=== PATIENT | female | born 1950 | race African-American/Black ===

== ENCOUNTER 2016-11-12 15:09 | Inpatient (IN) | payer OTHER, MEDICAID ==
[~2016-11-12] VITALS: Ht 170.2 cm; Wt 82.6 kg
[2016-11-12 15:09] VITALS: BP_SYST 125
[~2016-11-12 15:09] MED LIST: ASPI81TA2 PO; CARV3.1246 PO; CEL250 PO; FAMO20TA8 PO; GLIP5TAB13 PO; INSU100I20 SQ; INSU200I SQ; METO5TAB8 PO; MULT PO; NIFE60TA7 PO; SULF1TAB48 PO; TACR1CAP PO; [UNRECOGNIZED DRUG - CODE] PO
--- NOTE | 2016-11-12 15:09 | NUR ---
BROUGHT IN BY DANYEL Heredia AND FIONA GOODMAN, PLACED IN BED #1 AND TRIAGED. REPORT GIVEN TO TIA
--- NOTE | 2016-11-12 15:10 | NUR ---
Dr. Amor at bedside examining the pt.
--- NOTE | 2016-11-12 15:10 | NUR ---
Pt. to ER AAOx4 BIB EMS c/o SOB and Chest pain started yesterday states she took NTG / Asprin, denies SOB or Chest pain at the time of arrival, skin pale and cool, denies any pain at this time, clear speech, speaks in full sentences, lungs clear to auscultation bilaterally, denies N/V/D, VSS at this time
--- NOTE | 2016-11-12 15:15 | NUR ---
lab at bedside for blood draw
--- NOTE | 2016-11-12 15:19 | NUR ---
X Ray at bedside
[2016-11-12 15:39] VITALS: BP_SYST 135
[2016-11-12 15:41] LABS: BASOPHILS % (AUTO) 0.4 % (0.0-2.0); EOSINOPHILS # (AUTO) 0.1 K/uL (0.0-0.4); EOSINOPHILS % (AUTO) 1.3 % (0.0-4.0); HEMATOCRIT 35.1 % (36-48); HEMOGLOBIN 11.5 g/dL (12.0-16.0); LYMPHOCYTES # (AUTO) 1.4 K/uL (1.0-5.5); LYMPHOCYTES % (AUTO) 18.4 % (20.5-51.5); MEAN CORPUSCULAR HEMOGLOBIN 30 pg (27-31); MEAN CORPUSCULAR HGB CONC 33 % (32-36); MEAN CORPUSCULAR VOLUME 91 fL (79.0-98.0); MONOCYTES # (AUTO) 0.1 K/uL (0.0-1.0); MONOCYTES % (AUTO) 1.7 % (1.7-9.3); NEUTROPHILS # (AUTO) 5.8 K/uL (1.8-7.7); NEUTROPHILS % (AUTO) 78.2 % (40.0-70.0); PLATELET COUNT (AUTO) 332 K/uL (130-430); RED BLOOD CELL COUNT(AUTO) 3.84 MIL/uL (4.2-6.2); RED CELL DISTRIBUTION WIDTH 15.7 % (9.0-15.0); WHITE BLOOD COUNT (AUTO) 7.4 K/uL (4.8-10.8)
--- NOTE | 2016-11-12 15:44 | NUR ---
pt. resting, on crystallographer vitals are stable, bedpan provided to collect Urine for UA
[2016-11-12 15:55] LABS: CALCIUM 9.7 mg/dL (8.4-11.0); CREATININE 1.46 mg/dL (0.55-1.30)
[2016-11-12 16:00] LABS: ALBUMIN 3.6 g/dL (3.4-4.8); TOTAL BILIRUBIN 0.4 mg/dL (0.0-1.0); TOTAL PROTEIN, SERUM 6.9 g/dL (6.4-8.3)
--- NOTE | 2016-11-12 16:05 | NUR ---
Patient resting quietly. No acute distress noted. Vital signs within normal range.
[2016-11-12 16:06] LABS: POTASSIUM 2.8 mmol/L (3.5-5.1)
[2016-11-12 16:08] LABS: PROTHROMBIN TIME 10.9 SECS (9.5-12.5)
[2016-11-12] MEDS ORDERED: KCL 20 mEq in 100 mL (PREMIX) 100 ML IV ONE (16:15)
--- NOTE | 2016-11-12 16:35 | NUR ---
Pt. requested to eat, was given Diabetic Food tray at bedside
--- NOTE | 2016-11-12 16:40 | NUR ---
# 14 FR In and Out catheter with use of sterile technique. Immediate return of 200 ml yellow urine noted. Urine sample collected and sent to lab. Pt tolerated procedure well
[2016-11-12] MEDS ORDERED: NACL 0.9% 1,000 ML IV ONE (17:00)
[2016-11-12 17:12] LABS: BILIRUBIN,URINE NEGATIVE (NEGATIVE); BLOOD, URINE NEGATIVE (NEGATIVE); CLARITY/URINE CLEAR (CLEAR); COLOR,URINE YELLOW (YELLOW); GLUCOSE,URINE NEGATIVE (NEGATIVE); KETONES,URINE NEGATIVE (NEGATIVE); LEUKOCYTE ESTERASE ,URINE NEGATIVE (NEGATIVE); NITRITE, URINE NEGATIVE (NEGATIVE); PROTEIN URINE NEGATIVE (NEGATIVE); UROBILINOGEN,URINE 0.2 (0.2-1.0)
--- NOTE | 2016-11-12 17:19 | NUR ---
pt. states her list is at home, unable to recall all her meds, medication list completed as stated by pt.
--- NOTE | 2016-11-12 17:30 | NUR ---
Patient will be admitted to care of DR. Zavala. Admitted to TELE unit. Will go to room 135. Belongings list completed. Summary report printed. Report will be given at bedside.
--- NOTE | 2016-11-12 17:39 | NUR ---
Admission Note Received patient from ER with diagnosis of CP. Initial Plan of Care discussed-patient verbalized understanding. Oriented to room, call light, pain management and safety. vitals stable
--- NOTE | 2016-11-12 18:30 | NUR ---
Initial Notes Received patient in the room via gurney aaox4 with no complaints of chest pain or discomfort. No sob, difficulty breathing or distress noted. IV to right hand #20g saline locked patent and flushing. rent collector in place. Oriented to unit. Educated about fall and safety precautions. Encouraged to call for assistance. Call light within reach. Will endorse to incoming nurse.
[2016-11-12 19:30] VITALS: BP_SYST 145
--- NOTE | 2016-11-12 19:30 | NUR ---
Initial Notes Patient is A/Ox4, pleasant and cooperative. Pt denies any chest pain or sob at this time. VSS. IV intact to right hand #20g. Pt noted to have walker at bedside which she states she uses to walk to restroom. Pt educated regarding call light and correct back demonstration noted. Plan of care discussed with pt, pt verbalized understanding. Will reinforce teaching as needed. Pt inquired about her medications tonight, will follow up and page MD. Fistula noted to ROSALIO, with bruit and thrill present. Pt states she no longer receives dialysis. Safety measures in place, side rails up x3, with bed in lowest, locked position, bed alarm on at all times. All needs met at this time. Call light in hand. Will continue to monitor.
[2016-11-12] MEDS ORDERED: CLOP75TA2 PO (20:40)
--- NOTE | 2016-11-12 21:31 | NUR ---
Spoke with Informed regarding pt's medications tonight and blood sugar of 209. stated he would be in to see pt.
--- NOTE | 2016-11-12 22:13 | NUR ---
MD Rounds with pt. Informed MD that pt's blood sugar 209, and that her potassium earlier today was 2.8.
[2016-11-12] MEDS ORDERED: MILK OF MAGNESIA 30 ML UDC PO PRN (22:15)
[2016-11-12] MEDS: INSULIN REGULAR, HUMAN 100 UNITS/ML, 10 ML VIAL (novoLIN R) SUBCUT PRN (22:28)
[2016-11-12] MEDS ORDERED: NITROGLYCERIN 0.4 MG TAB.SUBL SL PRN (22:30)
[2016-11-13] VITALS (7 sets, daily range): BP systolic 121–150
--- NOTE | 2016-11-13 01:10 | NUR ---
Rounds Pt is sleeping safely in bed at this time with no acute distress or sob noted. VSS. IV intact. Call light in reach. Will continue to monitor.
--- NOTE | 2016-11-13 03:48 | NUR ---
Rounds Pt is sleeping comfortably in bed at this time. No acute distress or sob noted. Call light in reach. Will continue to monitor.
--- NOTE | 2016-11-13 05:42 | NUR ---
Blood sugar - Blood sugar checked, 59. [place] juice given at this time. Pt is A/Ox4, asymptomatic of low blood sugar. Pt denies any chills, dizziness, and no diaphoresis noted. Informed pt that I will be back in 15 minutes to re check her blood sugar.
--- NOTE | 2016-11-13 06:03 | NUR ---
Blood sugar re-checked Blood sugar re checked post 15gm of protein (OJ), 94 blood sugar. Pt states she feels better and more energized. Pt educated regarding good sources of protein and encouraged to eat her breakfast. Also educated pt on the normal range for blood sugar. All questions answered. All needs met at this time. Call light in hand. Will continue to monitor.
--- NOTE | 2016-11-13 06:28 | NUR ---
Closing Notes Pt is resting in bed quietly. No acute distress or sob noted. Pt denies any pain or n/v. VSS. IV intact. Pt in stable condition. All needs met at this time. Call light in hand. Will endorse care to am Nurse.
[2016-11-13 06:31] LABS: BASOPHILS % (AUTO) 0.1 % (0.0-2.0); EOSINOPHILS % (AUTO) 0.6 % (0.0-4.0); HEMATOCRIT 35.1 % (36-48); HEMOGLOBIN 11.5 g/dL (12.0-16.0); LYMPHOCYTES # (AUTO) 1.3 K/uL (1.0-5.5); LYMPHOCYTES % (AUTO) 17.4 % (20.5-51.5); MEAN CORPUSCULAR HEMOGLOBIN 30 pg (27-31); MEAN CORPUSCULAR HGB CONC 33 % (32-36); MEAN CORPUSCULAR VOLUME 91 fL (79.0-98.0); MONOCYTES # (AUTO) 0.2 K/uL (0.0-1.0); MONOCYTES % (AUTO) 3.3 % (1.7-9.3); NEUTROPHILS % (AUTO) 78.6 % (40.0-70.0); PLATELET COUNT (AUTO) 342 K/uL (130-430); RED BLOOD CELL COUNT(AUTO) 3.85 MIL/uL (4.2-6.2); RED CELL DISTRIBUTION WIDTH 15.4 % (9.0-15.0); WHITE BLOOD COUNT (AUTO) 7.5 K/uL (4.8-10.8)
[2016-11-13 06:43] LABS: ANION GAP 8 (5-15); CALCIUM 9.3 mg/dL (8.4-11.0); CHLORIDE 104 mmol/L (98-107); GLUCOSE 62 mg/dL (70-99); POTASSIUM 3.3 mmol/L (3.5-5.1); SODIUM SERUM 142 mmol/L (136-145); UREA NITROGEN, BLOOD 22 mg/dL (8-21)
[2016-11-13 07:06] LABS: GFR AFRICAN AMERICAN 53 mL/min (>90)
--- NOTE | 2016-11-13 08:00 | NUR ---
AM Initial notes Pt aaox4 with no complaints of chest pain or discomfort. No sob, difficulty breathing or distress noted. IV to right hand #20g saline locked patent and flushing. equipment monitor phototypesetting in place. re- educated about fall and safety precautions. Encouraged to call for assistance. Call light within reach. Will monitor.
[2016-11-13] MEDS ORDERED: CARVEDILOL 3.125 MG TABLET (COREG) PO SCH (09:00)
[2016-11-13] MEDS: NIFEDIPINE 60 MG TABLET.SA (PROCARDIA XL 60 MG) PO SCH (09:02)
[2016-11-13] MEDS: MULTIVITAMINS TAB 1 TABLET PO SCH (09:02)
[2016-11-13] MEDS: ASPIRIN 81 MG TAB.CHEW PO SCH (09:02)
[2016-11-13] MEDS: CLOPIDOGREL BISULFATE 75 MG TABLET PO SCH (09:02)
[2016-11-13] MEDS: FAMOTIDINE 20 MG TABLET PO SCH ×2 (09:03→21:04)
[2016-11-13] MEDS: METOLAZONE 5 MG TABLET PO SCH ×2 (09:03→21:05)
[2016-11-13] MEDS: ENOXAPARIN SODIUM 30 MG/0.3 ML SYRINGE SUBCUT SCH (09:04)
[2016-11-13] MEDS: SULFAMETHOXAZOLE/TRIMETHOPR DS 1 TABLET PO SCH (09:04)
[2016-11-13] MEDS: MYCOPHENOLATE MOFETIL 250 MG CAPSULE PO SCH ×2 (09:04→21:02)
[2016-11-13] MEDS: TACROLIMUS ANHYDROUS 1 MG CAPSULE (PROGRAF) PO SCH ×2 (09:05→21:04)
--- NOTE | 2016-11-13 10:00 | NUR ---
Rounds Pt awake resting in bed watching tv. No complaints of chest pain or any discomfort at this time. No distress noted. Kept comfortable. Will continue to monitor.
[2016-11-13] MEDS: INSULIN REGULAR, HUMAN 100 UNITS/ML, 10 ML VIAL (novoLIN R) SUBCUT PRN ×3 (11:52→21:14)
--- NOTE | 2016-11-13 12:00 | NUR ---
Rounds Pt awake sitting up on bed. No complaints of chest pain or discomfort. No distress noted. Blood sugar monitor 238. Insulin sliding scale administered.
--- NOTE | 2016-11-13 12:50 | NUR ---
Case mgt: CELESTE notice explained to pt--Pt aware she is admitted as observation status. Pt signed CELESTE and was given copy of CELESTE. Original CELESTE placed in chart. CARLA EUBANKS
--- NOTE | 2016-11-13 13:50 | NUR ---
Social Service Note: Pt referred to psychologist social by director case management due to pt's homelessness. EXTRACTIONS TECHNOLOGIST met with pt at bedside. Pt was pleasant and very open to resources provided by EXTRACTIONS TECHNOLOGIST. Pt states that she and her have been staying in motels for sometime. Pt states that they spend about $400 a week for motel/hotel stays. Pt states that they would like to get into more permanent housing. EXTRACTIONS TECHNOLOGIST spoke with pt about assisted living/independent living options. EXTRACTIONS TECHNOLOGIST provided pt with information on local assisted living facilities. EXTRACTIONS TECHNOLOGIST also provided pt with brochure for [facility]. EXTRACTIONS TECHNOLOGIST encouraged pt to make phone calls to the facilities to see what their monthly rate is for her and her . EXTRACTIONS TECHNOLOGIST encouraged pt to reach out to EXTRACTIONS TECHNOLOGIST should any questions arise. EXTRACTIONS TECHNOLOGIST will remain available for support and will follow up as needed. EXTRACTIONS TECHNOLOGIST has placed homeless [place] in pt's chart.
--- NOTE | 2016-11-13 14:00 | NUR ---
Rounds Pt awake resting in bed with no significant changes noted. Encouraged to call for assistance. Will monitor.
--- NOTE | 2016-11-13 16:00 | NUR ---
Rounds Pt awake watching tv. No significant changes noted. Kept comfortable. Will monitor.
[2016-11-13] MEDS ORDERED: POTASSIUM CHLORIDE 20 MEQ TAB.PRT.SR PO ONE (16:30)
--- NOTE | 2016-11-13 18:30 | NUR ---
Closing notes Pt awake resting in bed. No complaints of chest pain or discomfort. No distress noted. Pt stable condition. Will endorse care to incoming nurse.
--- NOTE | 2016-11-13 19:15 | NUR ---
change of shift.pt.presents stable status.no c/o pain,nausea.pt.presents room air:96%. pt.presents hx;renal failure:renal transplant;rt.kidney:2015,av-shunt lt.arm:no hemo dialysis: 2016.iv fluids access iv lock rt.hand.call light w/in pt's reach.
--- NOTE | 2016-11-13 20:00 | NUR ---
pt.assessed.v/s assessed:values w/in normal limits.pt.sign:hob:nsg alert:av shunt:lt.arm. i have reiterated to the pt.:snacks available throughout the night.pt.requested pudding. i have provided the pudding:sugar free.pt.presented w/room-telephone.i have demonstrated to the pt.the instructions to operate the telephone;ie;outside calls.call nsg per extentions provided upon the white boards:pt.returned the demonstration,.call light w/in the pt's reach.
--- NOTE | 2016-11-13 20:15 | NUR ---
blood glucose assessed:162mg/dl.i have apprised the pt.of the value.
--- NOTE | 2016-11-13 21:00 | NUR ---
2100 p medications administered.note renal transplant medications:x 2 tablets.no further request. call alyson w/in pt's reach.
[2016-11-13] MEDS: METOPROLOL TARTRATE 25 MG TABLET PO SCH (21:03)
--- NOTE | 2016-11-13 21:50 | NUR ---
pt.assessed.i inquired if the pt.presents request pt.stated i she could recieve medication for sleep. i am to f/u:no medication is ordered.
--- NOTE | 2016-11-13 21:55 | NUR ---
paged paged for Dr Moffett , dialed . s/w Sherry.
--- NOTE | 2016-11-13 22:00 | NUR ---
telephoned call placed to the exchange of i have apprised the pt.the call is placed to am awaiting for the return call.no further request @this hour.
--- NOTE | 2016-11-13 22:05 | NUR ---
return the call.i apprised of the pt's request for medication:sleep. has ordered;retoril;15mg po qhs/prn.i have apprised the pt.of the medication order and am awaitng the medication to be added to the pt's emar list.
[2016-11-13] MEDS: TEMAZEPAM 15 MG CAPSULE PO PRN (22:26)
--- NOTE | 2016-11-13 22:30 | NUR ---
i have administered the restoril;15mg po.i inquired if the pt.presents further request pt.stated no she is fine.call light w/in the pt's reach.
--- NOTE | 2016-11-13 23:30 | NUR ---
pt.assessed.pt.presents quiescent affect;calm,asleep.call light w/in the pt's reach.
--- NOTE | 2016-11-14 | NUR ---
pt.assessed.v/s assessed;values w/in normal limits.no further request @this hour. call light w/in the pt's reach.
--- NOTE | 2016-11-14 00:30 | NUR ---
i have conveyed the pt's report:info/data to jessica.i have re-iterated to leodan the pt's hx; renal failure s/p renal transplant;rt.kidney po medciations anti reject:medciations x2 meds location: po med margarito pt.utlizing the walker but re-terated to the pt.to call nsg for assistance.
--- NOTE | 2016-11-14 00:34 | NUR ---
NOTES RECEIVED REPORT FROM WADE EUBANKS FOR CONTINUITY OF PATIENT CARE. PATIENT ASLEEP AT THIS TIME, NO SIGNS OF ANY SOB NOR PAIN AND DISCOMFORT NOTED AT THIS TIME. WILL CONTINUE TO MONITOR.
--- NOTE | 2016-11-14 02:20 | NUR ---
ROUNDS PATIENT ASLEEP, NO SOB NOR PAIN AND DISCOMFORT NOTED, WILL CONTINUE TO MONITOR.
[2016-11-14 03:52] VITALS: BP_SYST 136
--- NOTE | 2016-11-14 04:04 | NUR ---
PATIENT RESTING: Patient resting quietly. No acute distress noted. Vital signs within normal range.
[2016-11-14] MEDS: INSULIN REGULAR, HUMAN 100 UNITS/ML, 10 ML VIAL (novoLIN R) SUBCUT PRN ×4 (06:27→22:01)
--- NOTE | 2016-11-14 06:50 | NUR ---
CLOSING NOTES PATIENT AWAKE, VITALS STABLE, ALL NEEDS ATTENDED TO. SAFETY AND FALL PRECAUTION MEASURES MAINTAINED. CALL LIGHT PLACED WITHIN REACH.
[2016-11-14 07:07] LABS: CALCIUM 9.5 mg/dL (8.4-11.0); CREATININE 1.42 mg/dL (0.55-1.30); POTASSIUM 3.3 mmol/L (3.5-5.1)
--- NOTE | 2016-11-14 07:20 | NUR ---
Initial notes: Pt on bed awake, alert and oriented. Stable. I.V. access patent. Discussed plan of care. Call light within reach.
[2016-11-14 08:00] VITALS: BP_SYST 146
--- NOTE | 2016-11-14 08:15 | NUR ---
rounds: pt having breakfast. no distress noted.
[2016-11-14] MEDS: ASPIRIN 81 MG TAB.CHEW PO SCH (08:16)
[2016-11-14] MEDS: METOLAZONE 5 MG TABLET PO SCH ×2 (08:17→21:55)
[2016-11-14] MEDS: METOPROLOL TARTRATE 25 MG TABLET PO SCH ×2 (08:17→21:55)
[2016-11-14] MEDS: NIFEDIPINE 60 MG TABLET.SA (PROCARDIA XL 60 MG) PO SCH (08:18)
[2016-11-14] MEDS: FAMOTIDINE 20 MG TABLET PO SCH ×2 (08:18→21:55)
[2016-11-14] MEDS: ENOXAPARIN SODIUM 30 MG/0.3 ML SYRINGE SUBCUT SCH (08:18)
[2016-11-14] MEDS: MULTIVITAMINS TAB 1 TABLET PO SCH (08:18)
[2016-11-14] MEDS: CLOPIDOGREL BISULFATE 75 MG TABLET PO SCH (08:18)
[2016-11-14] MEDS: MYCOPHENOLATE MOFETIL 250 MG CAPSULE PO SCH ×2 (08:19→21:58)
[2016-11-14] MEDS: TACROLIMUS ANHYDROUS 1 MG CAPSULE (PROGRAF) PO SCH ×2 (08:19→22:02)
--- NOTE | 2016-11-14 08:33 | NUR ---
Nutrition Update Barry Scale 17 noted. Pt admitted for: Chest pain. Diet: CCHO diet. BMI: 28.5 kg/m2. RD to follow per nutrition care standards.
--- NOTE | 2016-11-14 10:53 | NUR ---
rounds: pt on bed resting. no distress noted.
--- NOTE | 2016-11-14 11:59 | NUR ---
rounds: pt on bed having lunch. no distress noted.
[2016-11-14 13:14] VITALS: BP_SYST 136
--- NOTE | 2016-11-14 13:53 | NUR ---
rounds: pt resting and on the phone. no distress noted.
[2016-11-14 16:12] VITALS: BP_SYST 149
--- NOTE | 2016-11-14 16:30 | NUR ---
Alicia rounds: Dr. Jewellium seen and talk to the pt.
--- NOTE | 2016-11-14 17:41 | NUR ---
rounds: pt on bed having dinner. stable.
--- NOTE | 2016-11-14 18:41 | NUR ---
Closing notes: pt on bed resting. stable. needs attended. call light within reach. safety measures in placed. report will be given to incoming shift supervisor melting nurse.
--- NOTE | 2016-11-14 20:12 | NUR ---
Patient awake alert assist out of bed to rest room , ambulates with FFW skin dry warm fall measures implemented and helpful .
[2016-11-14 20:38] VITALS: BP_SYST 137
[2016-11-14] MEDS: TEMAZEPAM 15 MG CAPSULE PO PRN (21:56)
--- NOTE | 2016-11-14 23:09 | NUR ---
paged paged for Dr Moffett, dialed pager #: .
--- NOTE | 2016-11-14 23:10 | NUR ---
PHONED PAGED DR CONRAD D/T PATIENT HAD EPISODE OF V TAC @ 0.9 seconds .
--- NOTE | 2016-11-14 23:33 | NUR ---
paged second page for Dr Moffett, dialed . s/w Edwige.
--- NOTE | 2016-11-14 23:47 | NUR ---
DR RAEIUM updated d/t HR V TAC no new orders at this time .
[2016-11-14 23:51] VITALS: BP_SYST 144
--- NOTE | 2016-11-15 03:54 | NUR ---
Restoril 15 mg po patient request for sleep aide & helpful .
[2016-11-15 04:02] VITALS: BP_SYST 138
--- NOTE | 2016-11-15 04:12 | NUR ---
Hourly Rounding patient resting call acevedo with patient HOB elevated respirations regular also unlabored .
--- NOTE | 2016-11-15 05:55 | NUR ---
Patient awake this hour assist for position change ambulates out of bed to rest room FFW , slow gait no SOB noted activity tolerated .
[2016-11-15] MEDS: INSULIN REGULAR, HUMAN 100 UNITS/ML, 10 ML VIAL (novoLIN R) SUBCUT PRN ×4 (06:13→20:41)
--- NOTE | 2016-11-15 07:20 | NUR ---
initial notes: pt on bed sleeping. stable. i.v. access patent. safety in placed. call light within reach.
[2016-11-15 08:28] VITALS: BP_SYST 134
[2016-11-15] MEDS: ENOXAPARIN SODIUM 30 MG/0.3 ML SYRINGE SUBCUT SCH (09:16)
[2016-11-15] MEDS: FAMOTIDINE 20 MG TABLET PO SCH ×2 (09:17→20:32)
[2016-11-15] MEDS: METOLAZONE 5 MG TABLET PO SCH ×2 (09:17→20:36)
[2016-11-15] MEDS: ASPIRIN 81 MG TAB.CHEW PO SCH (09:17)
[2016-11-15] MEDS: CLOPIDOGREL BISULFATE 75 MG TABLET PO SCH (09:18)
[2016-11-15] MEDS: MULTIVITAMINS TAB 1 TABLET PO SCH (09:18)
[2016-11-15] MEDS: METOPROLOL TARTRATE 25 MG TABLET PO SCH ×2 (09:18→20:33)
[2016-11-15] MEDS: NIFEDIPINE 60 MG TABLET.SA (PROCARDIA XL 60 MG) PO SCH (09:18)
[2016-11-15] MEDS: MYCOPHENOLATE MOFETIL 250 MG CAPSULE PO SCH ×2 (09:19→20:34)
[2016-11-15] MEDS: TACROLIMUS ANHYDROUS 1 MG CAPSULE (PROGRAF) PO SCH ×2 (09:19→20:34)
--- NOTE | 2016-11-15 09:21 | NUR ---
rounds: pt on bed resting. no distress noted. medication given and compliant.
--- NOTE | 2016-11-15 09:40 | NUR ---
[facility] Communication: [facility] from [facility] will accept and reserve a room 12 B for the pt tomorrow. Informed Nursing Education Specialist, Taina.
--- NOTE | 2016-11-15 09:53 | NUR ---
CM DC PLANNING: [facility] REVIEWED WITH MARITZA THAT Pt WAS CHANGED TO IN-Pt ADMIT ON 11/13/16; 11/15/16 WILL BE 3RD QUALIFYING NIGHT AT HOSPITAL AND Pt CAN DC TO [facility] ON 11/16/16 PER ROOM PROVIDED TO MARITZA BY GARY ELLIOTT A.M.
--- NOTE | 2016-11-15 11:41 | NUR ---
High Blood Sugar: accu check done BS 451 then retake 478mg/dl. Regular insulin 12 units given and will call MMiller
[2016-11-15 12:14] VITALS: BP_SYST 137
--- NOTE | 2016-11-15 15:00 | NUR ---
rounds: pt on bed on the phone. stable.
[2016-11-15 16:37] VITALS: BP_SYST 140
--- NOTE | 2016-11-15 17:18 | NUR ---
Blood sugar: 254mg/dl 6 units insulin regular coverage given.
[2016-11-15] MEDS ORDERED: BISACODYL 10 MG/SUPPOSITORY RC PRN (17:30)
[2016-11-15] MEDS: BISACODYL 10 MG/SUPPOSITORY RC ONE ×2 (17:30→20:32)
--- NOTE | 2016-11-15 17:30 | NUR ---
Alicia rounds: Dr. Martins seen the pt and with new orders.
--- NOTE | 2016-11-15 19:01 | NUR ---
closing notes: pt on bed resting. stable. needs attended. safety measures in placed. call light within reach.
[2016-11-15 20:00] VITALS: BP_SYST 136
--- NOTE | 2016-11-15 20:01 | NUR ---
OPENING NOTES PATIENT IS A/OX4. NO SIGNS OF DISTRESS. BREATHING IS NON LABORED. VITAL SIGNS ARE STABLE. PATIENT HAS NO COMPLAINTS OF CHEST PAIN OR PAIN. IV IS PATENT. PATIENT INSTRUCTED TO CALL FOR ASSISTANCE. PATIENT VERBALIZED UNDERSTANDING. PATIENT REFUSED BED ALARM. SAFETY MEASURES ARE IN PLACE. CALL LIGHT IS WITHIN REACH. WILL CONTINUE TO MONITOR.
--- NOTE | 2016-11-15 21:45 | NUR ---
ROUNDS PATIENT IS IN BED RESTING COMFORTABLY AND WATCHING TV. NO SIGNS OF DISTRESS. PATIENT WAS GIVEN A WARM BLANKET. CALL LIGHT IS WITHIN REACH. SAFETY MEASURES ARE IN PLACE. WILL CONTINUE TO MONITOR. PATIENT INSTRUCTED TO CALL FOR ASSISTANCE.
--- NOTE | 2016-11-16 00:15 | NUR ---
ROUNDS PATIENT IS IN BED SLEEPING. NO SIGNS OF DISTRESS. BREATHING IS NON LABORED. CALL LIGHT IS AT PATIENT SIDE. SAFETY MEASURES ARE IN PLACE. WILL CONTINUE TO MONITOR.
[2016-11-16 00:43] VITALS: BP_SYST 143
[2016-11-16] MEDS: TEMAZEPAM 15 MG CAPSULE PO PRN (01:37)
--- NOTE | 2016-11-16 01:37 | NUR ---
ROUNDS PATIENT WAS ASSISTED TO THE RESTROOM AND BACK INTO BED. GAIT IS STEADY. PATIENT IS IN BED RESTING COMFORTABLY. CALL LIGHT IS AT PATIENT SIDE. SAFETY MEASURES ARE IN PLACE. BED ALARM IS ON. WILL CONTINUE TO MONITOR.
--- NOTE | 2016-11-16 03:50 | NUR ---
ROUNDS PATIENT WAS ASSISTED TO THE RESTROOM AND BACK INTO BED. GAIT IS STEADY. PATIENT IS IN BED RESTING COMFORTABLY. WILL CONTINUE TO MONITOR.
[2016-11-16 04:53] VITALS: BP_SYST 142
[2016-11-16] MEDS: INSULIN REGULAR, HUMAN 100 UNITS/ML, 10 ML VIAL (novoLIN R) SUBCUT PRN ×2 (06:36→11:50)
--- NOTE | 2016-11-16 06:57 | NUR ---
CLOSING NOTES PATIENT IS IN BED RESTING COMFORTABLY. NO SIGNS OF DISTRESS. BREATHING IS NON LABORED. IV IS PATENT. SAFETY MEASURES ARE IN PLACE. CALL LIGHT IS WITHIN REACH. WALKER IS AT BEDSIDE. WILL ENDORSE ALL CARE TO THE MORNING NURSE.
[2016-11-16 07:56] LABS: BASOPHILS % (AUTO) 0.2 % (0.0-2.0); EOSINOPHILS # (AUTO) 0.1 K/uL (0.0-0.4); EOSINOPHILS % (AUTO) 1.3 % (0.0-4.0); HEMATOCRIT 33.9 % (36-48); HEMOGLOBIN 11.1 g/dL (12.0-16.0); LYMPHOCYTES # (AUTO) 1.3 K/uL (1.0-5.5); LYMPHOCYTES % (AUTO) 21.7 % (20.5-51.5); MEAN CORPUSCULAR HEMOGLOBIN 30 pg (27-31); MEAN CORPUSCULAR HGB CONC 33 % (32-36); MEAN CORPUSCULAR VOLUME 92 fL (79.0-98.0); MONOCYTES # (AUTO) 0.2 K/uL (0.0-1.0); MONOCYTES % (AUTO) 3.5 % (1.7-9.3); NEUTROPHILS # (AUTO) 4.3 K/uL (1.8-7.7); NEUTROPHILS % (AUTO) 73.3 % (40.0-70.0); PLATELET COUNT (AUTO) 290 K/uL (130-430); RED BLOOD CELL COUNT(AUTO) 3.68 MIL/uL (4.2-6.2); RED CELL DISTRIBUTION WIDTH 15.7 % (9.0-15.0); WHITE BLOOD COUNT (AUTO) 5.9 K/uL (4.8-10.8)
[2016-11-16 08:00] VITALS: BP_SYST 141
--- NOTE | 2016-11-16 08:00 | NUR ---
am notes- Pt in bed awake, alert and oriented. ambulate with walker with supervision. on room air. denies any chest pain or shortness of breath. safety precaution. enc. to call for help at all times. call light in reach. pt verbalize understanding.
[2016-11-16 08:39] LABS: CALCIUM 9.4 mg/dL (8.4-11.0); CREATININE 1.47 mg/dL (0.55-1.30); POTASSIUM 3.3 mmol/L (3.5-5.1)
[2016-11-16] MEDS: CLOPIDOGREL BISULFATE 75 MG TABLET PO SCH (08:59)
[2016-11-16] MEDS: ASPIRIN 81 MG TAB.CHEW PO SCH (08:59)
[2016-11-16] MEDS: SULFAMETHOXAZOLE/TRIMETHOPR DS 1 TABLET PO SCH (08:59)
[2016-11-16] MEDS: METOLAZONE 5 MG TABLET PO SCH (09:00)
[2016-11-16] MEDS: NIFEDIPINE 60 MG TABLET.SA (PROCARDIA XL 60 MG) PO SCH (09:00)
[2016-11-16] MEDS: MULTIVITAMINS TAB 1 TABLET PO SCH (09:00)
[2016-11-16] MEDS: FAMOTIDINE 20 MG TABLET PO SCH (09:00)
[2016-11-16] MEDS: MYCOPHENOLATE MOFETIL 250 MG CAPSULE PO SCH (09:01)
[2016-11-16] MEDS: METOPROLOL TARTRATE 25 MG TABLET PO SCH (09:01)
[2016-11-16] MEDS: TACROLIMUS ANHYDROUS 1 MG CAPSULE (PROGRAF) PO SCH (09:01)
[2016-11-16] MEDS: ENOXAPARIN SODIUM 30 MG/0.3 ML SYRINGE SUBCUT SCH (09:02)
--- NOTE | 2016-11-16 10:06 | NUR ---
page - paged dr. monroe re: pottassium result 3.3.
[2016-11-16] MEDS ORDERED: POTASSIUM CHLORIDE 20 MEQ TAB.PRT.SR PO ONE ×2 (10:30→11:15)
--- NOTE | 2016-11-16 10:46 | NUR ---
DISCHARGE PLANNING Spoke with Ad[facility] at [facility] patient assigned to room 12B RN to report [phone] bed available anytime. DC order to SNF. RN Cele Wilcox made aware. Called [facility] ambulance [phone] spoke with [facility] arranged BLS transport picker packer 1pm. Placed transportation packet in nurse station.
[2016-11-16 11:33] VITALS: BP_SYST 113
--- NOTE | 2016-11-16 12:44 | NUR ---
notes- report given to tyrese britt
--- NOTE | 2016-11-16 13:25 | NUR ---
discharge- d/c pt home to tyrese ramos with all pt.s belongings. refused to check bag and wallet. per pt she has everything there. denies any pain or discomfort. no distress noted. d/c packet given to ambulance staff. keep ivl. arm band removed.
== END 2016-11-16 13:25 | DRG 206 ==
LOC: SED 15:09 → UNDOADMOB 16:27 → STU 16:27 → UNDOADMOB 17:21 → STU 17:21 → INTOOBSV 17:21 → OBSVTOIN 17:21 → STU 17:30 → OBSVTOIN 11-13 16:27 → STU 11-13 16:27
PROVIDERS: ADMIT Family Medicine; ATTEND Family Medicine
DX: M94.0 Chondrocostal junction syndrome [Tietze] (principal); Z94.0 Kidney transplant status; N18.9 Chronic kidney disease, unspecified; I12.9 Hypertensive chronic kidney disease with stage 1 through stage 4 chronic kidney disease, or unspecified chronic kidney disease; E11.22 Type 2 diabetes mellitus with diabetic chronic kidney disease; I49.9 Cardiac arrhythmia, unspecified; J44.9 Chronic obstructive pulmonary disease, unspecified; M19.90 Unspecified osteoarthritis, unspecified site; K59.00 Constipation, unspecified; Z79.82 Long term (current) use of aspirin; Z79.899 Other long term (current) drug therapy; Z90.710 Acquired absence of both cervix and uterus
CPT/HCPCS: 36415; 71010; 80048; 80053; 81003; 82550-TC; 82962; 83735-TC; 83880; 84484; 85025; 85610-TC; 85730-TC; 93005; 96360; 99285; J1650; J1815; J3480; J7030; J7050; J7507; J7517

== ENCOUNTER 2017-05-27 13:39 | Outpatient (CLI) | payer OTHER, MEDICAID ==
[~2017-05-27 13:39] MED LIST changes: +CLOP75TA2 PO
== END 2017-05-27 19:40 | disposition home or self-care (01) ==
LOC: SUS 13:39
DX: N18.9 Chronic kidney disease, unspecified (principal); N13.30 Unspecified hydronephrosis; N26.1 Atrophy of kidney (terminal); Z94.0 Kidney transplant status
CPT/HCPCS: 76770

== ENCOUNTER 2017-10-11 11:44 | Emergency (ER) | payer OTHER, MEDICAID ==
[~2017-10-11] VITALS: Ht 170.2 cm; Wt 72.6 kg
[2017-10-11 11:48] VITALS: BP_SYST 136
[2017-10-11 14:06] LABS: BASOPHILS # (AUTO) 0.2 K/uL (0.0-0.2); BASOPHILS % (AUTO) 1.4 % (0.0-2.0); EOSINOPHILS % (AUTO) 0.1 % (0.0-4.0); HEMATOCRIT 39.3 % (36-48); HEMOGLOBIN 12.7 g/dL (12.0-16.0); LYMPHOCYTES % (AUTO) 8.3 % (20.5-51.5); MEAN CORPUSCULAR HEMOGLOBIN 29 pg (27-31); MEAN CORPUSCULAR HGB CONC 32 % (32-36); MEAN CORPUSCULAR VOLUME 91 fL (79.0-98.0); MONOCYTES # (AUTO) 0.3 K/uL (0.0-1.0); MONOCYTES % (AUTO) 2.6 % (1.7-9.3); NEUTROPHILS % (AUTO) 87.6 % (40.0-70.0); PLATELET COUNT (AUTO) 280 K/uL (130-430); RED BLOOD CELL COUNT(AUTO) 4.32 MIL/uL (4.2-6.2); RED CELL DISTRIBUTION WIDTH 13.4 % (9.0-15.0); WHITE BLOOD COUNT (AUTO) 11.5 K/uL (4.8-10.8)
[2017-10-11 14:49] LABS: BILIRUBIN,URINE NEGATIVE (NEGATIVE); BLOOD, URINE NEGATIVE (NEGATIVE); CLARITY/URINE CLEAR (CLEAR); COLOR,URINE YELLOW (YELLOW); GLUCOSE,URINE 2+ (NEGATIVE); KETONES,URINE NEGATIVE (NEGATIVE); LEUKOCYTE ESTERASE ,URINE NEGATIVE (NEGATIVE); NITRITE, URINE NEGATIVE (NEGATIVE); PROTEIN URINE NEGATIVE (NEGATIVE); UROBILINOGEN,URINE 0.2 (0.2-1.0)
[2017-10-11 14:50] LABS: PROTHROMBIN TIME 9.9 SECS (9.5-12.5)
[2017-10-11 14:51] LABS: ANION GAP 6 (5-15); CALCIUM 10.6 mg/dL (8.4-11.0); CHLORIDE 100 mmol/L (98-107); CREATININE 1.75 mg/dL (0.55-1.30); GLUCOSE 251 mg/dL (70-99); POTASSIUM 3.6 mmol/L (3.5-5.1); SODIUM SERUM 137 mmol/L (136-145); UREA NITROGEN, BLOOD 37 mg/dL (8-21)
[2017-10-11 15:05] LABS: GFR AFRICAN AMERICAN 37 mL/min (>90)
[2017-10-11 15:07] LABS: BACTERIA,URINE RARE /HPF (None Seen); RBC,URINE 0-3 /HPF (0-3); WBC,URINE 0-3 /HPF (0-3)
[2017-10-11 15:08] LABS: ALANINE AMINOTRANSFERASE 18 U/L (12-78); ALBUMIN 3.8 g/dL (3.4-4.8); ASPARTATE AMINOTRANSFERASE 16 U/L (10-37); FREE T4 (FREE THYROXINE) 1.2 ng/dL (0.6-1.6); TOTAL BILIRUBIN 0.5 mg/dL (0.0-1.0)
[2017-10-11 15:11] LABS: ALCOHOL, BLOOD < 3 mg/dL (<10)
[2017-10-11 15:12] LABS: BARBITURATE, URINE NEGATIVE (NEG <=200); BENZODIAZEPINE, URINE POSITIVE (NEG <=150); CANNABINOID, URINE NEGATIVE (NEG <=50); COCAINE, URINE NEGATIVE (NEG <=150); METHAMPHETAMINES SCREEN,URINE NEGATIVE (NEG <=500); OPIATE, URINE NEGATIVE (NEG <=100); PHENCYCLIDINE SCREEN,URINE NEGATIVE (NEG <=25); UR TRICYCLIC ANTIDEPRESSANTS NEGATIVE (NEG <=300); URINE AMPHETAMINE NEGATIVE (NEG <=500); URINE METHADONE NEGATIVE (NEG <=200); URINE OXYCODONE SCREEN NEGATIVE (NEG <=100); URINE PROPOXYPHENE SCREEN NEGATIVE (NEG <=300)
[2017-10-11 15:50] VITALS: BP_SYST 149
== END 2017-10-11 15:50 | disposition home or self-care (01) ==
LOC: SED 11:44
DX: R11.0 Nausea (principal); J44.9 Chronic obstructive pulmonary disease, unspecified; I12.0 Hypertensive chronic kidney disease with stage 5 chronic kidney disease or end stage renal disease; E11.22 Type 2 diabetes mellitus with diabetic chronic kidney disease; N18.6 End stage renal disease; Z99.2 Dependence on renal dialysis; Z94.0 Kidney transplant status; Z79.01 Long term (current) use of anticoagulants
CPT/HCPCS: 36415; 70450; 71045; 73560; 74018; 80053; 80307; 81000; 82140; 83605; 83880; 84439; 84484; 85025; 85610; 87040; 93005; 99285; G0482

== ENCOUNTER 2018-01-09 14:11 | Inpatient (IN) | payer OTHER, MEDICAID ==
[~2018-01-09] VITALS: Ht 170.2 cm; Wt 68.0 kg
[~2018-01-09 14:11] MED LIST changes: +ASPI-1155 PO; -ASPI81TA2 PO; -NIFE60TA7 PO; +PROXL60 PO
[2018-01-09 14:25] VITALS: BP_SYST 154
[2018-01-09] MEDS ORDERED: NACL 0.9% 1,000 ML IV ONE (14:43)
[2018-01-09] MEDS ORDERED: MORPHINE 4 MG/ML INJ. SYRINGE IVP ONE (14:45)
[2018-01-09] MEDS ORDERED: ONDANSETRON HCL 4 MG/2 ML VIAL IVP ONE (14:45)
[2018-01-09 15:13] LABS: EOSINOPHILS % (AUTO) 0.3 % (0.0-4.0); HEMOGLOBIN 11.3 g/dL (12.0-16.0); LYMPHOCYTES # (AUTO) 0.5 K/uL (1.0-5.5); MEAN CORPUSCULAR HEMOGLOBIN 30 pg (27-31); MEAN CORPUSCULAR HGB CONC 33 % (32-36); MONOCYTES # (AUTO) 0.3 K/uL (0.0-1.0); NEUTROPHILS # (AUTO) 4.3 K/uL (1.8-7.7); WHITE BLOOD COUNT (AUTO) 5.1 K/uL (4.8-10.8)
[2018-01-09 15:15] LABS: BASOPHILS % (AUTO) 0.4 % (0.0-2.0); HEMATOCRIT 34.4 % (36-48); MEAN CORPUSCULAR VOLUME 91 fL (79.0-98.0); MONOCYTES % (AUTO) 5.2 % (1.7-9.3); NEUTROPHILS % (AUTO) 84.1 % (40.0-70.0); PLATELET COUNT (AUTO) 299 K/uL (130-430); RED CELL DISTRIBUTION WIDTH 14.2 % (9.0-15.0)
[2018-01-09] MEDS ORDERED: LIDOCAINE VISCOUS 2%, 15 ML UDC MM ONE (15:15)
[2018-01-09 15:37] LABS: CALCIUM 9.8 mg/dL (8.4-11.0); CREATININE 1.63 mg/dL (0.55-1.30); POTASSIUM 3.6 mmol/L (3.5-5.1)
[2018-01-09 15:42] LABS: ALBUMIN 3.4 g/dL (3.4-4.8); TOTAL BILIRUBIN 0.4 mg/dL (0.0-1.0)
[2018-01-09] MEDS ORDERED: KCL 20 mEq in 0.45% NS 1000 mL 1,000 ML IV ONE (16:15)
[2018-01-09] MEDS ORDERED: GLUCOSE 15 GM GEL (in 37.5 GM TUBE) PO PRN ×2 (17:30)
[2018-01-09] MEDS ORDERED: DEXTROSE 50%-WATER 50 ML DISP.SYRIN IVP PRN ×2 (17:30)
[2018-01-09 17:40] LABS: BILIRUBIN,URINE NEGATIVE (NEGATIVE); BLOOD, URINE NEGATIVE (NEGATIVE); CLARITY/URINE CLEAR (CLEAR); COLOR,URINE YELLOW (YELLOW); GLUCOSE,URINE NEGATIVE (NEGATIVE); KETONES,URINE 1+ (NEGATIVE); LEUKOCYTE ESTERASE ,URINE NEGATIVE (NEGATIVE); NITRITE, URINE NEGATIVE (NEGATIVE); PROTEIN URINE NEGATIVE (NEGATIVE); UROBILINOGEN,URINE 0.2 (0.2-1.0)
[2018-01-09 18:01] VITALS: BP_SYST 168
[2018-01-09] MEDS: MORPHINE 2 MG/ML INJ. SYRINGE IVP PRN (19:39)
[2018-01-09] MEDS: LIDOCAINE VISCOUS 2%, 15 ML UDC MM SCH ×2 (19:43→21:11)
[2018-01-09 20:00] VITALS: BP_SYST 160
[2018-01-09] MEDS: CARVEDILOL 3.125 MG TABLET (COREG) PO SCH (21:00)
[2018-01-09] MEDS: MYCOPHENOLATE MOFETIL 250 MG CAPSULE PO SCH (21:12)
[2018-01-09] MEDS: FAMOTIDINE 20 MG TABLET PO SCH (21:12)
[2018-01-09] MEDS: METOLAZONE 5 MG TABLET PO SCH (21:13)
[2018-01-09] MEDS: cloNIDine HCL 0.1 MG TABLET PO PRN (21:13)
[2018-01-09] MEDS: TACROLIMUS ANHYDROUS 1 MG CAPSULE (PROGRAF) PO SCH (21:14)
[2018-01-09] MEDS: INSULIN REGULAR, HUMAN 100 UNITS/ML, 10 ML VIAL (novoLIN R) SUBCUT PRN (21:24)
[2018-01-10] VITALS: BP_SYST 163
[2018-01-10] MEDS: MORPHINE 2 MG/ML INJ. SYRINGE IVP PRN ×5 (00:59→22:40)
[2018-01-10] MEDS: LIDOCAINE VISCOUS 2%, 15 ML UDC MM SCH ×4 (06:20→20:21)
[2018-01-10] MEDS: INSULIN REGULAR, HUMAN 100 UNITS/ML, 10 ML VIAL (novoLIN R) SUBCUT PRN ×4 (06:30→20:38)
[2018-01-10 07:09] LABS: BASOPHILS % (AUTO) 0.3 % (0.0-2.0); EOSINOPHILS % (AUTO) 0.7 % (0.0-4.0); HEMATOCRIT 32.2 % (36-48); HEMOGLOBIN 10.9 g/dL (12.0-16.0); LYMPHOCYTES # (AUTO) 0.8 K/uL (1.0-5.5); LYMPHOCYTES % (AUTO) 16.6 % (20.5-51.5); MEAN CORPUSCULAR HEMOGLOBIN 31 pg (27-31); MEAN CORPUSCULAR HGB CONC 34 % (32-36); MEAN CORPUSCULAR VOLUME 91 fL (79.0-98.0); MONOCYTES # (AUTO) 0.5 K/uL (0.0-1.0); MONOCYTES % (AUTO) 10.1 % (1.7-9.3); NEUTROPHILS # (AUTO) 3.5 K/uL (1.8-7.7); NEUTROPHILS % (AUTO) 72.3 % (40.0-70.0); PLATELET COUNT (AUTO) 299 K/uL (130-430); RED BLOOD CELL COUNT(AUTO) 3.55 MIL/uL (4.2-6.2); RED CELL DISTRIBUTION WIDTH 14.5 % (9.0-15.0); WHITE BLOOD COUNT (AUTO) 4.8 K/uL (4.8-10.8)
[2018-01-10 07:33] LABS: CALCIUM 9.2 mg/dL (8.4-11.0); CREATININE 1.48 mg/dL (0.55-1.30); POTASSIUM 4.1 mmol/L (3.5-5.1)
[2018-01-10 08:30] VITALS: BP_SYST 162
[2018-01-10] MEDS: CARVEDILOL 3.125 MG TABLET (COREG) PO SCH ×2 (09:00→20:31)
[2018-01-10] MEDS ORDERED: SULFAMETHOXAZOLE/TRIMETHOPR DS 1 TABLET PO SCH (09:00)
[2018-01-10] MEDS: MULTIVITAMINS TAB 1 TABLET PO SCH (09:18)
[2018-01-10] MEDS: FAMOTIDINE 20 MG TABLET PO SCH ×2 (09:18→20:21)
[2018-01-10] MEDS: METOLAZONE 5 MG TABLET PO SCH ×2 (09:20→20:29)
[2018-01-10] MEDS: ASPIRIN 81 MG TAB.CHEW PO SCH (09:21)
[2018-01-10] MEDS: NIFEDIPINE 60 MG TABLET.SA (PROCARDIA XL 60 MG) PO SCH (09:21)
[2018-01-10] MEDS: TACROLIMUS ANHYDROUS 1 MG CAPSULE (PROGRAF) PO SCH ×2 (09:22→20:32)
[2018-01-10] MEDS: MYCOPHENOLATE MOFETIL 250 MG CAPSULE PO SCH ×2 (09:25→20:30)
[2018-01-10] MEDS: CLOPIDOGREL BISULFATE 75 MG TABLET PO SCH (09:25)
[2018-01-10 11:16] VITALS: BP_SYST 149
[2018-01-10] MEDS: KCL 20 mEq in D5NS 1000 mL 1,000 ML IV SCH (15:11)
[2018-01-10 15:21] VITALS: BP_SYST 157
[2018-01-10] MEDS: NYSTATIN 500,000 UNITS/5 ML UDC PO SCH ×2 (17:26→23:35)
[2018-01-10] MEDS: PIPERACILLIN/TAZO 3.375/DEX-IS 50 ML IV SCH ×2 (17:26→23:54)
[2018-01-10 19:50] VITALS: BP_SYST 162
[2018-01-10] MEDS: ALPRAZolam 0.25 MG TABLET PO PRN (23:56)
[2018-01-11] MEDS: KCL 20 mEq in D5NS 1000 mL 1,000 ML IV SCH ×3 (00:06→21:20)
[2018-01-11] MEDS ORDERED: TEMAZEPAM 15 MG CAPSULE PO ONE (02:00)
[2018-01-11] MEDS: NYSTATIN 500,000 UNITS/5 ML UDC PO SCH ×4 (05:58→23:14)
[2018-01-11] MEDS: LIDOCAINE VISCOUS 2%, 15 ML UDC MM SCH ×4 (05:58→21:21)
[2018-01-11] MEDS: PIPERACILLIN/TAZO 3.375/DEX-IS 50 ML IV SCH ×2 (06:01→11:01)
[2018-01-11] MEDS: INSULIN REGULAR, HUMAN 100 UNITS/ML, 10 ML VIAL (novoLIN R) SUBCUT PRN ×4 (06:10→22:45)
[2018-01-11 07:14] LABS: BASOPHILS % (AUTO) 0.4 % (0.0-2.0); EOSINOPHILS % (AUTO) 0.3 % (0.0-4.0); HEMATOCRIT 30.6 % (36-48); LYMPHOCYTES # (AUTO) 0.8 K/uL (1.0-5.5); LYMPHOCYTES % (AUTO) 15.6 % (20.5-51.5); MEAN CORPUSCULAR HEMOGLOBIN 30 pg (27-31); MEAN CORPUSCULAR HGB CONC 33 % (32-36); MEAN CORPUSCULAR VOLUME 92 fL (79.0-98.0); MONOCYTES # (AUTO) 0.9 K/uL (0.0-1.0); MONOCYTES % (AUTO) 17.8 % (1.7-9.3); NEUTROPHILS # (AUTO) 3.2 K/uL (1.8-7.7); NEUTROPHILS % (AUTO) 65.9 % (40.0-70.0); PLATELET COUNT (AUTO) 278 K/uL (130-430); RED BLOOD CELL COUNT(AUTO) 3.32 MIL/uL (4.2-6.2); RED CELL DISTRIBUTION WIDTH 14.4 % (9.0-15.0); WHITE BLOOD COUNT (AUTO) 4.9 K/uL (4.8-10.8)
[2018-01-11 07:15] LABS: CALCIUM 8.6 mg/dL (8.4-11.0); CREATININE 1.33 mg/dL (0.55-1.30); POTASSIUM 3.8 mmol/L (3.5-5.1)
[2018-01-11 08:30] VITALS: BP_SYST 167
[2018-01-11] MEDS: TACROLIMUS ANHYDROUS 1 MG CAPSULE (PROGRAF) PO SCH ×2 (08:54→21:00)
[2018-01-11] MEDS: ASPIRIN 81 MG TAB.CHEW PO SCH (08:55)
[2018-01-11] MEDS: MYCOPHENOLATE MOFETIL 250 MG CAPSULE PO SCH ×2 (08:55→21:25)
[2018-01-11] MEDS: MULTIVITAMINS TAB 1 TABLET PO SCH (08:55)
[2018-01-11] MEDS: METOLAZONE 5 MG TABLET PO SCH ×2 (08:56→21:24)
[2018-01-11] MEDS: FAMOTIDINE 20 MG TABLET PO SCH ×2 (08:56→21:23)
[2018-01-11] MEDS: CLOPIDOGREL BISULFATE 75 MG TABLET PO SCH (08:56)
[2018-01-11] MEDS: NIFEDIPINE 60 MG TABLET.SA (PROCARDIA XL 60 MG) PO SCH (08:56)
[2018-01-11] MEDS: CARVEDILOL 3.125 MG TABLET (COREG) PO SCH ×2 (08:57→21:23)
[2018-01-11] MEDS: MORPHINE 2 MG/ML INJ. SYRINGE IVP PRN ×3 (08:58→18:01)
[2018-01-11 11:27] VITALS: BP_SYST 156
[2018-01-11 15:16] VITALS: BP_SYST 173
[2018-01-11] MEDS: cloNIDine HCL 0.1 MG TABLET PO PRN (16:12)
[2018-01-11] MEDS: PREDNISONE 20 MG TABLET PO SCH (16:58)
[2018-01-11 19:51] VITALS: BP_SYST 139
[2018-01-11] MEDS ORDERED: TEMAZEPAM 15 MG CAPSULE PO SCH (21:00)
[2018-01-11] MEDS: ACYCLOVIR IV 500 MG in D5W 100 ML IV SCH (21:21)
[2018-01-11] MEDS: ALPRAZolam 0.25 MG TABLET PO PRN (23:13)
[2018-01-12] VITALS: BP_SYST 121
[2018-01-12] MEDS ORDERED: LIDOCAINE VISCOUS 2%, 15 ML UDC MM SCH (01:00)
[2018-01-12] MEDS: LIDOCAINE VISCOUS 2%, 15 ML UDC MM SCH ×4 (03:00→15:00)
[2018-01-12] MEDS: KCL 20 mEq in D5NS 1000 mL 1,000 ML IV SCH (06:26)
[2018-01-12] MEDS: NYSTATIN 500,000 UNITS/5 ML UDC PO SCH ×2 (06:26→11:05)
[2018-01-12] MEDS: INSULIN REGULAR, HUMAN 100 UNITS/ML, 10 ML VIAL (novoLIN R) SUBCUT PRN ×2 (06:40→11:09)
[2018-01-12 08:50] VITALS: BP_SYST 121
[2018-01-12] MEDS ORDERED: amLODIPine BESYLATE 10 MG TABLET PO SCH (09:00)
[2018-01-12] MEDS: FAMOTIDINE 20 MG TABLET PO SCH (09:13)
[2018-01-12] MEDS: CARVEDILOL 3.125 MG TABLET (COREG) PO SCH (09:14)
[2018-01-12] MEDS: CLOPIDOGREL BISULFATE 75 MG TABLET PO SCH (09:14)
[2018-01-12] MEDS: PREDNISONE 20 MG TABLET PO SCH (09:14)
[2018-01-12] MEDS: ASPIRIN 81 MG TAB.CHEW PO SCH (09:14)
[2018-01-12] MEDS: METOLAZONE 5 MG TABLET PO SCH (09:15)
[2018-01-12] MEDS: ACYCLOVIR IV 500 MG in D5W 100 ML IV SCH (09:15)
[2018-01-12] MEDS: MULTIVITAMINS TAB 1 TABLET PO SCH (09:15)
[2018-01-12] MEDS: NIFEDIPINE 60 MG TABLET.SA (PROCARDIA XL 60 MG) PO SCH (09:15)
[2018-01-12] MEDS: MYCOPHENOLATE MOFETIL 250 MG CAPSULE PO SCH (09:16)
[2018-01-12] MEDS: TACROLIMUS ANHYDROUS 1 MG CAPSULE (PROGRAF) PO SCH (10:15)
[2018-01-12] MEDS: MORPHINE 2 MG/ML INJ. SYRINGE IVP PRN (10:16)
[2018-01-12 12:40] VITALS: BP_SYST 125
[2018-01-12 12:55] VITALS: BP_SYST 124
== END 2018-01-12 16:20 | DRG 157 ==
LOC: SED 14:11 → SMU 16:14 → OBSVTOIN 01-10 15:04
PROVIDERS: ADMIT Family Medicine; ATTEND Family Medicine
DX: B00.2 Herpesviral gingivostomatitis and pharyngotonsillitis (principal); N17.0 Acute kidney failure with tubular necrosis; Z94.0 Kidney transplant status; E87.1 Hypo-osmolality and hyponatremia; N39.0 Urinary tract infection, site not specified; E86.0 Dehydration; F41.9 Anxiety disorder, unspecified; J44.9 Chronic obstructive pulmonary disease, unspecified; G89.29 Other chronic pain; M54.9 Dorsalgia, unspecified; N18.9 Chronic kidney disease, unspecified; I12.9 Hypertensive chronic kidney disease with stage 1 through stage 4 chronic kidney disease, or unspecified chronic kidney disease; E11.22 Type 2 diabetes mellitus with diabetic chronic kidney disease; Z79.899 Other long term (current) drug therapy; Z79.02 Long term (current) use of antithrombotics/antiplatelets; Z79.82 Long term (current) use of aspirin
CPT/HCPCS: 36415; 80048; 80053; 81003; 82962; 85025; 87081; 87497; 96361; 96374; 97110-GP; 97116-GP; 97530-GP; 99285; G0378; J0133; J1815; J2001; J2270; J2405; J2543; J3480; J7030; J7060; J7507; J7512; J7517

== ENCOUNTER 2018-04-10 19:17 | Inpatient (IN) | payer OTHER, MEDICAID ==
[~2018-04-10] VITALS: Ht 170.2 cm; Wt 63.0 kg
[~2018-04-10 19:17] MED LIST changes: -INSU100I20 SQ; -INSU200I SQ; -[UNRECOGNIZED DRUG - CODE] PO
[2018-04-10 19:20] VITALS: BP_SYST 134
[2018-04-10] MEDS ORDERED: NOR10 PO (19:50)
[2018-04-10] MEDS ORDERED: DONE10TA44 PO (19:51)
[2018-04-10] MEDS ORDERED: LORA-258 PO (19:52)
[2018-04-10] MEDS ORDERED: BISA10SU61 RC (19:54)
[2018-04-10] MEDS ORDERED: SUCR1TAB78 PO (19:54)
[2018-04-10] MEDS ORDERED: DOCU-144 PO (19:55)
[2018-04-10] MEDS ORDERED: FURO-149 PO (19:56)
[2018-04-10] MEDS ORDERED: GLUC1VIA4 IM (19:57)
[2018-04-10] MEDS ORDERED: MEGE40TA PO (19:58)
[2018-04-10] MEDS ORDERED: MOM PO (19:59)
[2018-04-10] MEDS ORDERED: ALBU2.5V7 INH (20:00)
[2018-04-10] MEDS ORDERED: NS 500 ML IV ONE (20:00)
[2018-04-10] MEDS ORDERED: MIRT7.5T11 PO (20:01)
[2018-04-10] MEDS ORDERED: TEMA15CA5 PO (20:02)
[2018-04-10] MEDS ORDERED: TRAM50TA2 PO (20:03)
[2018-04-10] MEDS ORDERED: ACET-2165 PO (20:05)
[2018-04-10] MEDS ORDERED: MYCO500T PO (20:06)
[2018-04-10] MEDS ORDERED: MORP15TA PO (20:07)
[2018-04-10] MEDS ORDERED: SSNOVOLOG SUBCUT (20:15)
[2018-04-10] MEDS ORDERED: DEXT50DI5 IV (20:19)
[2018-04-10 20:39] LABS: HEMATOCRIT 28.1 % (36-48); MEAN CORPUSCULAR HEMOGLOBIN 28 pg (27-31); MEAN CORPUSCULAR HGB CONC 32 % (32-36); MEAN CORPUSCULAR VOLUME 88 fL (79.0-98.0); PLATELET COUNT (AUTO) 482 K/uL (130-430); RED BLOOD CELL COUNT(AUTO) 3.18 MIL/uL (4.2-6.2); RED CELL DISTRIBUTION WIDTH 15.4 % (9.0-15.0)
[2018-04-10 20:48] LABS: CALCIUM 9.8 mg/dL (8.4-11.0); CREATININE 1.77 mg/dL (0.55-1.30); POTASSIUM 3.3 mmol/L (3.5-5.1)
[2018-04-10 20:52] LABS: PROTHROMBIN TIME 10.5 SECS (9.5-12.5)
[2018-04-10 20:53] LABS: TOTAL BILIRUBIN 0.8 mg/dL (0.0-1.0)
[2018-04-10 21:15] LABS: BAND % (MANUAL) 19 % (0-6); BASOPHILS % (MANUAL) 0 % (0-2); EOSINOPHILS % (MANUAL) 0 % (0-7); LYMPHOCYTES % (MANUAL) 2 % (20-46); MONOCYTES % (MANUAL) 6 % (0-11)
[2018-04-10] MEDS ORDERED: LEVOFLOXACIN 500 MG/D5W 100 ML IV ONE (22:00)
[2018-04-10 22:59] LABS: BILIRUBIN,URINE NEGATIVE (NEGATIVE); BLOOD, URINE 3+ (NEGATIVE); CLARITY/URINE CLOUDY (CLEAR); COLOR,URINE YELLOW (YELLOW); GLUCOSE,URINE NEGATIVE (NEGATIVE); KETONES,URINE 1+ (NEGATIVE); LEUKOCYTE ESTERASE ,URINE 3+ (NEGATIVE); NITRITE, URINE NEGATIVE (NEGATIVE); PROTEIN URINE 2+ (NEGATIVE); UROBILINOGEN,URINE 0.2 (0.2-1.0)
[2018-04-10 23:06] LABS: BACTERIA,URINE MANY /HPF (None Seen); RBC,URINE >100 /HPF (0-3); WBC,URINE >100 /HPF (0-3)
[2018-04-10 23:07] LABS: MUCUS,URINE None Seen /LPF (None Seen)
[2018-04-10 23:15] VITALS: BP_SYST 143
[2018-04-10] MEDS ORDERED: NACL 0.9% 1,000 ML IV ONE (23:15)
[2018-04-10 23:45] VITALS: BP_SYST 143
[2018-04-11] MEDS ORDERED: LEVOFLOXACIN 250 MG/D5W 50 ML IV SCH ×2 (06:30→21:00)
[2018-04-11] MEDS ORDERED: MILK OF MAGNESIA 30 ML UDC PO PRN (06:30)
[2018-04-11] MEDS ORDERED: BISACODYL 10 MG/SUPPOSITORY RC PRN (06:30)
[2018-04-11] MEDS ORDERED: traMADol HCL HCL 50 MG TABLET (ULTRAM) PO PRN (06:30)
[2018-04-11] MEDS ORDERED: DEXTROSE 50% JECT 50 ML DISP.SYRIN IV PRN (06:30)
[2018-04-11] MEDS ORDERED: ALBUTEROL SULFATE 0.083% 2.5 MG/3 ML VIAL.NEB INH PRN (06:30)
[2018-04-11] MEDS ORDERED: ONDANSETRON HCL 4 MG/2 ML VIAL IVP PRN (06:30)
[2018-04-11] MEDS ORDERED: GLUCAGON HCL IM PRN (06:30)
[2018-04-11] MEDS ORDERED: DOCUSATE SODIUM 100 MG CAPSULE PO PRN (06:30)
[2018-04-11] MEDS ORDERED: DEXTROSE 50% JECT 50 ML DISP.SYRIN IVP PRN ×2 (06:30)
[2018-04-11] MEDS ORDERED: ACETAMINOPHEN 325 MG TABLET PO PRN (06:30)
[2018-04-11 08:00] VITALS: BP_SYST 122
[2018-04-11] MEDS: ASPIRIN 81 MG TAB.CHEW PO SCH (08:32)
[2018-04-11] MEDS: CLOPIDOGREL BISULFATE 75 MG TABLET PO SCH (08:32)
[2018-04-11] MEDS: SUCRALFATE 1 GM TABLET PO SCH ×3 (08:32→20:24)
[2018-04-11] MEDS: FUROSEMIDE 40 MG TABLET PO SCH (08:42)
[2018-04-11] MEDS: MEGESTROL ACETATE 40 MG TABLET PO SCH ×2 (08:42→20:24)
[2018-04-11] MEDS: amLODIPine BESYLATE 10 MG TABLET PO SCH (08:43)
[2018-04-11] MEDS ORDERED: GLUCAGON,HUMAN RECOMBINANT 1 MG VIAL IM PRN (08:45)
[2018-04-11] MEDS: INSULIN ASPART 100 UNITS/ML, 10 ML VIAL (NovoLOG) SUBCUT PRN ×4 (08:45→20:35)
[2018-04-11] MEDS: MYCOPHENOLATE MOFETIL 250 MG CAPSULE PO SCH ×2 (09:09→20:26)
[2018-04-11 10:00] VITALS: BP_SYST 122
[2018-04-11 11:05] VITALS: BP_SYST 146
[2018-04-11] MEDS: LORazepam 1 MG TABLET PO PRN (12:09)
[2018-04-11] MEDS: PIPERACILLIN/TAZO 3.375/DEX-IS 50 ML IV SCH ×3 (14:34→23:03)
[2018-04-11] MEDS: NORMAL SALINE 5 ML DISP.SYRIN IVF SCH ×2 (14:34→22:15)
[2018-04-11 15:00] VITALS: BP_SYST 128
[2018-04-11 16:03] LABS: CALCIUM 9.3 mg/dL (8.4-11.0); CREATININE 1.94 mg/dL (0.55-1.30); POTASSIUM 3.3 mmol/L (3.5-5.1)
[2018-04-11 16:31] LABS: HEMOGLOBIN 8.6 g/dL (12.0-16.0); MEAN CORPUSCULAR HEMOGLOBIN 29 pg (27-31); MEAN CORPUSCULAR HGB CONC 32 % (32-36); MEAN CORPUSCULAR VOLUME 90 fL (79.0-98.0); PLATELET COUNT (AUTO) 331 K/uL (130-430); RED CELL DISTRIBUTION WIDTH 15.8 % (9.0-15.0); WHITE BLOOD COUNT (AUTO) 24.6 K/uL (4.8-10.8)
[2018-04-11 18:16] LABS: BAND % (MANUAL) 15 % (0-6); BASOPHILS % (MANUAL) 0 % (0-2); EOSINOPHILS % (MANUAL) 0 % (0-7); LYMPHOCYTES % (MANUAL) 3 % (20-46); MONOCYTES % (MANUAL) 6 % (0-11)
[2018-04-11 20:00] VITALS: BP_SYST 120
[2018-04-11] MEDS: MIRTAZAPINE 15 MG TABLET PO SCH (20:24)
[2018-04-11] MEDS: DONEPEZIL HCL 5 MG TABLET (ARICEPT) PO SCH (20:24)
[2018-04-11] MEDS: TACROLIMUS ANHYDROUS 1 MG CAPSULE (PROGRAF) PO SCH (20:25)
[2018-04-11] MEDS ORDERED: MIRTAZAPINE 7.5 MG PO SCH (21:00)
[2018-04-11] MEDS: LORazepam 2 MG/ML VIAL IVP PRN (23:48)
[2018-04-12 01:24] VITALS: BP_SYST 122
[2018-04-12] MEDS: PIPERACILLIN/TAZO 3.375/DEX-IS 50 ML IV SCH ×2 (05:10→12:15)
[2018-04-12] MEDS: NORMAL SALINE 5 ML DISP.SYRIN IVF SCH ×3 (05:13→21:29)
[2018-04-12] MEDS: INSULIN ASPART 100 UNITS/ML, 10 ML VIAL (NovoLOG) SUBCUT PRN ×4 (06:05→21:31)
[2018-04-12] MEDS: LORazepam 2 MG/ML VIAL IVP PRN (06:07)
[2018-04-12 06:47] LABS: ALBUMIN 2.2 g/dL (3.4-4.8); CREATININE 2.18 mg/dL (0.55-1.30); TOTAL BILIRUBIN 0.5 mg/dL (0.0-1.0)
[2018-04-12 06:54] LABS: BASOPHILS % (AUTO) 0.1 % (0.0-2.0); EOSINOPHILS % (AUTO) 0.2 % (0.0-4.0); HEMATOCRIT 24.4 % (36-48); HEMOGLOBIN 7.8 g/dL (12.0-16.0); LYMPHOCYTES # (AUTO) 0.3 K/uL (1.0-5.5); LYMPHOCYTES % (AUTO) 2.1 % (20.5-51.5); MEAN CORPUSCULAR HEMOGLOBIN 27 pg (27-31); MEAN CORPUSCULAR HGB CONC 32 % (32-36); MEAN CORPUSCULAR VOLUME 86 fL (79.0-98.0); MONOCYTES # (AUTO) 0.7 K/uL (0.0-1.0); MONOCYTES % (AUTO) 4.5 % (1.7-9.3); NEUTROPHILS # (AUTO) 14.2 K/uL (1.8-7.7); NEUTROPHILS % (AUTO) 93.1 % (40.0-70.0); PLATELET COUNT (AUTO) 353 K/uL (130-430); RED BLOOD CELL COUNT(AUTO) 2.84 MIL/uL (4.2-6.2); RED CELL DISTRIBUTION WIDTH 15.4 % (9.0-15.0); WHITE BLOOD COUNT (AUTO) 15.2 K/uL (4.8-10.8)
[2018-04-12 07:10] LABS: POTASSIUM 2.9 mmol/L (3.5-5.1)
[2018-04-12] MEDS ORDERED: POTASSIUM CHLORIDE 40 MEQ in NS 250 ML IV ONE (07:45)
[2018-04-12 08:00] VITALS: BP_SYST 133
[2018-04-12] MEDS: ASPIRIN 81 MG TAB.CHEW PO SCH (10:12)
[2018-04-12] MEDS: SUCRALFATE 1 GM TABLET PO SCH ×3 (10:12→21:15)
[2018-04-12] MEDS: amLODIPine BESYLATE 10 MG TABLET PO SCH (10:12)
[2018-04-12] MEDS: CLOPIDOGREL BISULFATE 75 MG TABLET PO SCH (10:12)
[2018-04-12] MEDS: PREDNISONE 5 MG TABLET PO SCH (10:12)
[2018-04-12] MEDS: TACROLIMUS ANHYDROUS 1 MG CAPSULE (PROGRAF) PO SCH ×2 (10:13→21:17)
[2018-04-12] MEDS: FUROSEMIDE 40 MG TABLET PO SCH (10:13)
[2018-04-12] MEDS: MYCOPHENOLATE MOFETIL 250 MG CAPSULE PO SCH ×2 (10:13→21:18)
[2018-04-12] MEDS: MEGESTROL ACETATE 40 MG TABLET PO SCH ×2 (10:19→21:15)
[2018-04-12] MEDS ORDERED: POTASSIUM CHLORIDE 20 MEQ/PKT PACKET PO ONE (10:45)
[2018-04-12 11:26] LABS: ERYTHROCYTE SEDIMENTATION RATE 75 MM/HR (0-20)
[2018-04-12] MEDS ORDERED: ACETAMINOPHEN 325 MG TABLET PO PRN (11:30)
[2018-04-12 13:15] VITALS: BP_SYST 111
[2018-04-12] MEDS ORDERED: VANCOMYCIN HCL 500 MG in NS 100 ML IV SCH (15:00)
[2018-04-12 16:58] VITALS: BP_SYST 101
[2018-04-12] MEDS: PIPERACILLIN/TAZO 2.25G/DEX-IS 50 ML IV SCH ×2 (18:06→23:48)
[2018-04-12] MEDS ORDERED: HALOPERIDOL LACTATE 5 MG/ML VIAL IM ONE (18:45)
[2018-04-12 19:55] VITALS: BP_SYST 108
[2018-04-12] MEDS ORDERED: LINEZOLID 300 ML IV SCH (21:00)
[2018-04-12] MEDS: DONEPEZIL HCL 5 MG TABLET (ARICEPT) PO SCH (21:15)
[2018-04-12] MEDS: MIRTAZAPINE 15 MG TABLET PO SCH (21:16)
[2018-04-12] MEDS: MORPHINE SULFATE 30 MG Immediate Release TABLET PO PRN (21:34)
[2018-04-12] MEDS: TEMAZEPAM 15 MG CAPSULE PO PRN (22:00)
[2018-04-13 00:59] VITALS: BP_SYST 121
[2018-04-13] MEDS: PIPERACILLIN/TAZO 2.25G/DEX-IS 50 ML IV SCH ×4 (05:44→23:19)
[2018-04-13] MEDS: NORMAL SALINE 5 ML DISP.SYRIN IVF SCH ×3 (05:44→22:12)
[2018-04-13] MEDS: INSULIN ASPART 100 UNITS/ML, 10 ML VIAL (NovoLOG) SUBCUT PRN ×4 (06:24→21:00)
[2018-04-13 06:58] LABS: BASOPHILS % (AUTO) 0.2 % (0.0-2.0); EOSINOPHILS # (AUTO) 0.2 K/uL (0.0-0.4); EOSINOPHILS % (AUTO) 2.4 % (0.0-4.0); HEMATOCRIT 23.5 % (36-48); HEMOGLOBIN 7.6 g/dL (12.0-16.0); LYMPHOCYTES # (AUTO) 0.6 K/uL (1.0-5.5); LYMPHOCYTES % (AUTO) 6.1 % (20.5-51.5); MEAN CORPUSCULAR HEMOGLOBIN 28 pg (27-31); MEAN CORPUSCULAR HGB CONC 32 % (32-36); MEAN CORPUSCULAR VOLUME 85 fL (79.0-98.0); MONOCYTES # (AUTO) 0.9 K/uL (0.0-1.0); MONOCYTES % (AUTO) 9.3 % (1.7-9.3); NEUTROPHILS # (AUTO) 8.3 K/uL (1.8-7.7); PLATELET COUNT (AUTO) 353 K/uL (130-430); RED BLOOD CELL COUNT(AUTO) 2.76 MIL/uL (4.2-6.2); RED CELL DISTRIBUTION WIDTH 15.6 % (9.0-15.0)
[2018-04-13 08:02] LABS: CALCIUM 9.5 mg/dL (8.4-11.0); CREATININE 2.12 mg/dL (0.55-1.30); POTASSIUM 3.1 mmol/L (3.5-5.1)
[2018-04-13 08:30] VITALS: BP_SYST 129
[2018-04-13] MEDS: CLOPIDOGREL BISULFATE 75 MG TABLET PO SCH (09:39)
[2018-04-13] MEDS: TACROLIMUS ANHYDROUS 1 MG CAPSULE (PROGRAF) PO SCH ×2 (09:39→20:43)
[2018-04-13] MEDS: MYCOPHENOLATE MOFETIL 250 MG CAPSULE PO SCH ×2 (09:39→20:43)
[2018-04-13] MEDS ORDERED: POTASSIUM CHLORIDE 40 MEQ, LIDOCAINE JECT 2% PF 100 MG 50 MG in NS 250 ML IV ONE (11:00)
[2018-04-13] MEDS: NACL 0.9% 1,000 ML IV SCH ×2 (11:12→20:31)
[2018-04-13] MEDS: amLODIPine BESYLATE 10 MG TABLET PO SCH (11:26)
[2018-04-13] MEDS: MEGESTROL ACETATE 40 MG TABLET PO SCH ×2 (11:26→22:11)
[2018-04-13] MEDS: SUCRALFATE 1 GM TABLET PO SCH ×3 (11:26→20:44)
[2018-04-13] MEDS: PREDNISONE 5 MG TABLET PO SCH (11:27)
[2018-04-13] MEDS: ASPIRIN 81 MG TAB.CHEW PO SCH (11:27)
[2018-04-13 11:31] VITALS: BP_SYST 131
[2018-04-13] MEDS: LORazepam 1 MG TABLET PO PRN ×2 (14:43→23:19)
[2018-04-13 14:58] VITALS: BP_SYST 124
[2018-04-13 19:45] VITALS: BP_SYST 123
[2018-04-13] MEDS: TEMAZEPAM 15 MG CAPSULE PO PRN (20:43)
[2018-04-13] MEDS: MIRTAZAPINE 15 MG TABLET PO SCH (20:44)
[2018-04-13] MEDS: DONEPEZIL HCL 5 MG TABLET (ARICEPT) PO SCH (20:44)
[2018-04-14] MEDS: NACL 0.9% 1,000 ML IV SCH ×2 (05:12→11:45)
[2018-04-14] MEDS: PIPERACILLIN/TAZO 2.25G/DEX-IS 50 ML IV SCH ×3 (05:13→17:19)
[2018-04-14 06:28] LABS: BASOPHILS % (AUTO) 0.1 % (0.0-2.0); EOSINOPHILS # (AUTO) 0.3 K/uL (0.0-0.4); EOSINOPHILS % (AUTO) 2.5 % (0.0-4.0); HEMATOCRIT 26.4 % (36-48); HEMOGLOBIN 8.2 g/dL (12.0-16.0); LYMPHOCYTES % (AUTO) 8.4 % (20.5-51.5); MEAN CORPUSCULAR HEMOGLOBIN 27 pg (27-31); MEAN CORPUSCULAR HGB CONC 31 % (32-36); MEAN CORPUSCULAR VOLUME 88 fL (79.0-98.0); MONOCYTES # (AUTO) 1.3 K/uL (0.0-1.0); MONOCYTES % (AUTO) 11.3 % (1.7-9.3); PLATELET COUNT (AUTO) 396 K/uL (130-430); RED BLOOD CELL COUNT(AUTO) 3.01 MIL/uL (4.2-6.2); RED CELL DISTRIBUTION WIDTH 16.1 % (9.0-15.0); WHITE BLOOD COUNT (AUTO) 11.6 K/uL (4.8-10.8)
[2018-04-14] MEDS: INSULIN ASPART 100 UNITS/ML, 10 ML VIAL (NovoLOG) SUBCUT PRN ×3 (06:28→17:22)
[2018-04-14] MEDS: NORMAL SALINE 5 ML DISP.SYRIN IVF SCH ×2 (06:29→13:36)
[2018-04-14 07:03] LABS: ALBUMIN 2.5 g/dL (3.4-4.8); CALCIUM 9.6 mg/dL (8.4-11.0); CREATININE 1.92 mg/dL (0.55-1.30); POTASSIUM 3.7 mmol/L (3.5-5.1); TOTAL BILIRUBIN 0.2 mg/dL (0.0-1.0)
[2018-04-14 07:20] LABS: TOTAL IRON BIND. CAPACITY 152 ug/dL (250-450)
[2018-04-14 08:00] VITALS: BP_SYST 145
[2018-04-14 08:03] VITALS: BP_SYST 129
[2018-04-14] MEDS: MORPHINE SULFATE 30 MG Immediate Release TABLET PO PRN (08:25)
[2018-04-14] MEDS: PREDNISONE 5 MG TABLET PO SCH (08:26)
[2018-04-14] MEDS: SUCRALFATE 1 GM TABLET PO SCH ×2 (08:26→16:00)
[2018-04-14] MEDS: CLOPIDOGREL BISULFATE 75 MG TABLET PO SCH (08:27)
[2018-04-14] MEDS: MEGESTROL ACETATE 40 MG TABLET PO SCH (08:28)
[2018-04-14] MEDS: ASPIRIN 81 MG TAB.CHEW PO SCH (08:29)
[2018-04-14] MEDS: amLODIPine BESYLATE 10 MG TABLET PO SCH (08:30)
[2018-04-14] MEDS: MYCOPHENOLATE MOFETIL 250 MG CAPSULE PO SCH (08:30)
[2018-04-14] MEDS: TACROLIMUS ANHYDROUS 1 MG CAPSULE (PROGRAF) PO SCH (08:31)
[2018-04-14 10:48] VITALS: BP_SYST 142
[2018-04-14 10:50] LABS: NEUTROPHILS % (AUTO) 77.7 % (40.0-70.0)
[2018-04-14 12:00] VITALS: BP_SYST 144
[2018-04-14] MEDS: LORazepam 1 MG TABLET PO PRN (12:34)
[2018-04-14 16:00] VITALS: BP_SYST 131
[2018-04-14 19:03] VITALS: BP_SYST 133
[2018-04-15 07:07] LABS: FOLATE (FOLIC ACID) 10.2 ng/mL (>3.0)
== END 2018-04-14 19:55 | DRG 871 ==
LOC: SED 19:17 → SMU 23:01
PROVIDERS: ADMIT Preventive Medicine Preventive Medicine/Occupational Environmental Medicine; ATTEND Family Medicine
DX: A41.9 Sepsis, unspecified organism (principal); G93.41 Metabolic encephalopathy; N18.6 End stage renal disease; I12.0 Hypertensive chronic kidney disease with stage 5 chronic kidney disease or end stage renal disease; N12 Tubulo-interstitial nephritis, not specified as acute or chronic; N17.9 Acute kidney failure, unspecified; Z94.0 Kidney transplant status; E11.65 Type 2 diabetes mellitus with hyperglycemia; E86.9 Volume depletion, unspecified; E87.6 Hypokalemia; D63.8 Anemia in other chronic diseases classified elsewhere; E11.22 Type 2 diabetes mellitus with diabetic chronic kidney disease; E86.0 Dehydration; F03.90 Unspecified dementia, unspecified severity, without behavioral disturbance, psychotic disturbance, mood disturbance, and anxiety; G47.00 Insomnia, unspecified; G89.29 Other chronic pain; J44.9 Chronic obstructive pulmonary disease, unspecified; D47.3 Essential (hemorrhagic) thrombocythemia; B96.4 Proteus (mirabilis) (morganii) as the cause of diseases classified elsewhere; Z99.2 Dependence on renal dialysis; Z79.4 Long term (current) use of insulin; Z79.899 Other long term (current) drug therapy
CPT/HCPCS: 36415; 71045; 78226; 80048; 80053; 81000-TC; 82607; 82728; 82746; 82962; 83540-TC; 83550-TC; 83605; 83735-TC; 83880; 84100-TC; 84484; 85007; 85025; 85027; 85610-TC; 85651-TC; 85730-TC; 86140; 87040-TC; 87081; 87086; 87186-TC; 93005; 96361; 96365; 99285; A9537; J1630; J1815; J1956; J2020; J2060; J2274; J2543; J3370; J3480; J7030; J7040; J7050; J7507; J7512; J7517

== ENCOUNTER 2018-04-28 01:16 | Emergency (ER) | payer OTHER, MEDICAID ==
[~2018-04-28] VITALS: Ht 170.2 cm; Wt 61.2 kg
[~2018-04-28 01:16] MED LIST changes: +ACET-2165 PO; +ALBU2.5V7 INH; +BISA10SU61 RC; -CARV3.1246 PO; -CEL250 PO; +DEXT50DI5 IV; +DOCU-144 PO; +DONE10TA44 PO; -FAMO20TA8 PO; +FURO-149 PO; -GLIP5TAB13 PO; +GLUC1VIA4 IM; +LORA-258 PO; +MEGE40TA PO; -METO5TAB8 PO; +MIRT7.5T11 PO; +MOM PO; +MORP15TA PO; -MULT PO; +MYCO500T PO; +NOR10 PO; -PROXL60 PO; +SSNOVOLOG SUBCUT; +SUCR1TAB78 PO; -SULF1TAB48 PO; -TACR1CAP PO; +TEMA15CA5 PO; +TRAM50TA2 PO
[2018-04-28 01:21] VITALS: BP_SYST 156
--- NOTE | 2018-04-28 01:27 | NUR ---
Pt BIB BLS, placed to ER bed 07, to [facility]. Pt report given to RAIMUNDO Monzon.
--- NOTE | 2018-04-28 01:30 | NUR ---
Patient to ER via EMT ambulance for evaluation of non-traumatic back pain x 1 day. Patient is awake, alert and oriented in no acute distress, vital signs stable, respirations even and unlabored, skin warm and dry to touch. Awaiting evaluation by ER MD, will continue to observe and assess.
--- NOTE | 2018-04-28 01:31 | NUR ---
Dr. Gamble at bedside.
--- NOTE | 2018-04-28 01:51 | NUR ---
Lab at bedside.
[2018-04-28 02:19] LABS: BASOPHILS % (AUTO) 0.3 % (0.0-2.0); EOSINOPHILS # (AUTO) 0.3 K/uL (0.0-0.4); EOSINOPHILS % (AUTO) 4.4 % (0.0-4.0); HEMATOCRIT 25.4 % (36-48); HEMOGLOBIN 8.3 g/dL (12.0-16.0); LYMPHOCYTES # (AUTO) 1.5 K/uL (1.0-5.5); LYMPHOCYTES % (AUTO) 24.4 % (20.5-51.5); MEAN CORPUSCULAR HEMOGLOBIN 28 pg (27-31); MEAN CORPUSCULAR HGB CONC 33 % (32-36); MEAN CORPUSCULAR VOLUME 87 fL (79.0-98.0); MONOCYTES # (AUTO) 0.7 K/uL (0.0-1.0); MONOCYTES % (AUTO) 10.8 % (1.7-9.3); NEUTROPHILS # (AUTO) 3.8 K/uL (1.8-7.7); NEUTROPHILS % (AUTO) 60.1 % (40.0-70.0); RED BLOOD CELL COUNT(AUTO) 2.93 MIL/uL (4.2-6.2); RED CELL DISTRIBUTION WIDTH 16.2 % (9.0-15.0); WHITE BLOOD COUNT (AUTO) 6.3 K/uL (4.8-10.8)
[2018-04-28 02:21] LABS: PLATELET COUNT (AUTO) 566 K/uL (130-430)
[2018-04-28 02:23] LABS: CALCIUM 9.4 mg/dL (8.4-11.0); CREATININE 1.64 mg/dL (0.55-1.30)
[2018-04-28 02:28] LABS: ALBUMIN 2.8 g/dL (3.4-4.8); TOTAL BILIRUBIN 0.2 mg/dL (0.0-1.0)
--- NOTE | 2018-04-28 02:30 | NUR ---
Bedpan placed and removed post void. Urine sample collected and sent to lab.
--- NOTE | 2018-04-28 02:30 | NUR ---
Note brennon in EDM - 04/28/18 at 0618 by KATHJ Resting with eyes closed, NAD. at bedside, no needs verbalized.
[2018-04-28 02:34] LABS: POTASSIUM 2.7 mmol/L (3.5-5.1)
[2018-04-28] MEDS ORDERED: KCL 20 mEq in 100 mL (PREMIX) 100 ML IV ONE (02:45)
[2018-04-28] MEDS ORDERED: POTASSIUM CHLORIDE 20 MEQ TAB.PRT.SR PO ONE (02:45)
--- NOTE | 2018-04-28 03:00 | NUR ---
Resting with eyes closed, NAD. at bedside, no needs verbalized.
[2018-04-28 03:07] LABS: BILIRUBIN,URINE NEGATIVE (NEGATIVE); BLOOD, URINE NEGATIVE (NEGATIVE); CLARITY/URINE CLEAR (CLEAR); COLOR,URINE YELLOW (YELLOW); GLUCOSE,URINE 2+ (NEGATIVE); KETONES,URINE NEGATIVE (NEGATIVE); LEUKOCYTE ESTERASE ,URINE NEGATIVE (NEGATIVE); NITRITE, URINE NEGATIVE (NEGATIVE); PROTEIN URINE NEGATIVE (NEGATIVE); UROBILINOGEN,URINE 0.2 (0.2-1.0)
--- NOTE | 2018-04-28 03:15 | NUR ---
Pt complained of "burning in right arm," where IV potassium is running. Changed rate to 30mL/hr. Notified Dr. Gamble. Pt states "feels much better."
--- NOTE | 2018-04-28 03:20 | NUR ---
Medication reconciliation completed with information provided by facility. Any prior medication reconciliation on file was reviewed and corrected.
[2018-04-28] MEDS ORDERED: DONE10TA44 PO (03:21)
[2018-04-28] MEDS ORDERED: FESO4TAB PO (03:21)
[2018-04-28] MEDS ORDERED: INSU100V11 SQ (03:21)
--- NOTE | 2018-04-28 03:25 | NUR ---
Pt assisted to bedside commode.
[2018-04-28 03:37] LABS: RBC,URINE 0-3 /HPF (0-3)
[2018-04-28 03:38] LABS: BACTERIA,URINE FEW /HPF (None Seen); YEAST,URINE Few /HPF (None Seen)
[2018-04-28] MEDS ORDERED: POTASSIUM CHLORIDE 20 MEQ/PKT PACKET PO ONE (04:15)
--- NOTE | 2018-04-28 04:15 | NUR ---
Dr. Gamble on phone with Dr. Moffett. Pt to finish Potassium IV, then to be discharged back to [facility].
--- NOTE | 2018-04-28 05:25 | NUR ---
K-rider complete, no s/s infiltration. PIV discontinued with angiocath tip intact. Pressure dsg applied.
--- NOTE | 2018-04-28 05:45 | NUR ---
Pt states that she wants to go home because she is cold. Pt provided with more blankets. [facility] contacted for transport. ETA [id number]
--- NOTE | 2018-04-28 06:00 | NUR ---
Pt reassured that transport will be coming.
[2018-04-28 06:58] VITALS: BP_SYST 138
--- NOTE | 2018-04-28 06:58 | NUR ---
Patient given written and verbal discharge instructions and verbalizes understanding. ER MD discussed with patient the results and treatment provided. Patient in stable condition. ID arm band removed. IV catheter removed intact and dressing applied, no active bleeding. Rx KCL 10mEq ER PO given. Patient educated on pain management and to follow up with PMD. Pain Scale 0/10. Opportunity for questions provided and answered. Medication side effect fact sheet provided.
== END 2018-04-28 06:58 | disposition home or self-care (01) ==
LOC: SED 01:16
DX: N28.9 Disorder of kidney and ureter, unspecified (principal); M54.9 Dorsalgia, unspecified; D64.9 Anemia, unspecified; E87.6 Hypokalemia; J44.9 Chronic obstructive pulmonary disease, unspecified; E11.22 Type 2 diabetes mellitus with diabetic chronic kidney disease; I12.0 Hypertensive chronic kidney disease with stage 5 chronic kidney disease or end stage renal disease; N18.6 End stage renal disease; Z86.79 Personal history of other diseases of the circulatory system; Z79.82 Long term (current) use of aspirin; Z79.899 Other long term (current) drug therapy
CPT/HCPCS: 36415; 71045; 80053; 81000; 83605; 85025; 87086; 93005; 96365; 96366; 99285; J3480

== ENCOUNTER 2019-05-09 14:52 | Emergency (ER) | payer MEDICAID, OTHER ==
[~2019-05-09] VITALS: Ht 170.2 cm; Wt 68.0 kg
[~2019-05-09 14:52] MED LIST changes: +FESO4TAB PO; +INSU100V11 SQ
[2019-05-09 14:55] VITALS: BP_SYST 176
--- NOTE | 2019-05-09 14:55 | NUR ---
Patient to ER bed 03 to gown for evaluation. Side rails up.
--- NOTE | 2019-05-09 14:56 | NUR ---
Patient arrived in the ED via ambulance c/o bodyaches, weakness, and fevers that started yesterday. Patient is alert and oriented x4, respirations even and unlabored, speaking in full sentences. Denied any chest pain or shortness of breath at this time. at bedside. INstructed to notify ED staff for worsening symptoms while waiting to be seen by the provider. Patient verbalized understanding.
--- NOTE | 2019-05-09 14:58 | NUR ---
MIRIAM Clark at bedside examining patient.
[2019-05-09] MEDS ORDERED: NACL 0.9% 1,000 ML IV ONE (15:15)
[2019-05-09] MEDS ORDERED: ONDANSETRON HCL 4 MG/2 ML VIAL IVP ONE (15:15)
--- NOTE | 2019-05-09 15:15 | NUR ---
# 20 gauge angiocath placed to Left index finger. Use of asceptic technique. Opsite placed over site. Flushed with 10 cc of normal saline. No evidence of infiltration noted. Patient tolerated well.
--- NOTE | 2019-05-09 15:20 | NUR ---
Professor Of Communication at bedside collecting blood specimen. Patient tolerated the procedure well.
--- NOTE | 2019-05-09 15:30 | NUR ---
Administered Zofran IVP as ordered by Dr. Morrissey. Patient tolerated the medication well.
[2019-05-09 16:18] LABS: BASOPHILS % (AUTO) 0.6 % (0.0-2.0); EOSINOPHILS % (AUTO) 0.4 % (0.0-4.0); HEMATOCRIT 35.6 % (36-48); HEMOGLOBIN 11.5 g/dL (12.0-16.0); LYMPHOCYTES # (AUTO) 1.3 K/uL (1.0-5.5); LYMPHOCYTES % (AUTO) 31.8 % (20.5-51.5); MEAN CORPUSCULAR HEMOGLOBIN 30 pg (27-31); MEAN CORPUSCULAR HGB CONC 32 % (32-36); MEAN CORPUSCULAR VOLUME 94 fL (79.0-98.0); MONOCYTES # (AUTO) 0.4 K/uL (0.0-1.0); MONOCYTES % (AUTO) 8.9 % (1.7-9.3); NEUTROPHILS # (AUTO) 2.3 K/uL (1.8-7.7); NEUTROPHILS % (AUTO) 58.3 % (40.0-70.0); PLATELET COUNT (AUTO) 225 K/uL (130-430); RED CELL DISTRIBUTION WIDTH 17.9 % (9.0-15.0)
[2019-05-09 16:36] LABS: CALCIUM 8.8 mg/dL (8.4-11.0); CREATININE 1.56 mg/dL (0.55-1.30); POTASSIUM 3.2 mmol/L (3.5-5.1)
[2019-05-09 16:45] LABS: ALBUMIN 3.2 g/dL (3.4-4.8); TOTAL BILIRUBIN 0.5 mg/dL (0.0-1.0)
[2019-05-09] MEDS ORDERED: POTASSIUM CHLORIDE 20 MEQ TAB.PRT.SR PO ONE (16:45)
[2019-05-09 17:06] LABS: BILIRUBIN,URINE NEGATIVE (NEGATIVE); BLOOD, URINE TRACE (NEGATIVE); COLOR,URINE YELLOW (YELLOW); GLUCOSE,URINE 2+ (NEGATIVE); KETONES,URINE NEGATIVE (NEGATIVE); LEUKOCYTE ESTERASE ,URINE NEGATIVE (NEGATIVE); NITRITE, URINE NEGATIVE (NEGATIVE); PH,URINE 6.5 (5.0-8.0); PROTEIN URINE NEGATIVE (NEGATIVE); UROBILINOGEN,URINE 0.2 (0.2-1.0)
[2019-05-09 17:07] LABS: CLARITY/URINE HAZY (CLEAR)
[2019-05-09 17:23] LABS: BACTERIA,URINE FEW /HPF (None Seen); MUCUS,URINE None Seen /LPF (None Seen); RBC,URINE 0-3 /HPF (0-3); WBC,URINE 0-3 /HPF (0-3); YEAST,URINE Many /HPF (None Seen)
--- NOTE | 2019-05-09 18:00 | NUR ---
Patient given written and verbal discharge instructions and verbalizes understanding. ER MD discussed with patient the results and treatment provided. Patient in stable condition. ID arm band removed. IV catheter removed intact and dressing applied, no active bleeding. No Rx of given. Patient educated on pain management and to follow up with PMD. Pain Scale 2/10. Opportunity for questions provided and answered. Medication side effect fact sheet provided.
[2019-05-09 18:17] VITALS: BP_SYST 176
--- NOTE | 2019-05-09 18:30 | NUR ---
Transported back to [facility] via [facility].
== END 2019-05-09 18:30 | disposition home or self-care (01) ==
LOC: SED 14:52
DX: I12.0 Hypertensive chronic kidney disease with stage 5 chronic kidney disease or end stage renal disease (principal); F43.20 Adjustment disorder, unspecified; E87.6 Hypokalemia; E11.65 Type 2 diabetes mellitus with hyperglycemia; J45.909 Unspecified asthma, uncomplicated; N18.6 End stage renal disease; E11.22 Type 2 diabetes mellitus with diabetic chronic kidney disease; Z99.2 Dependence on renal dialysis; D64.9 Anemia, unspecified; Z79.4 Long term (current) use of insulin; Z79.82 Long term (current) use of aspirin; Z79.899 Other long term (current) drug therapy
CPT/HCPCS: 36415; 71045; 80053; 81000; 83605; 84484; 85025; 87040; 87086; 93005; 96374; 99284; J2405; J7030

== ENCOUNTER 2019-05-16 14:29 | Inpatient (IN) | payer OTHER ==
[~2019-05-16] VITALS: Ht 170.2 cm; Wt 73.9 kg
[2019-05-16 15:00] VITALS: BP_SYST 146
--- NOTE | 2019-05-16 15:03 | NUR ---
Patient to ER bed 07 to gown for evaluation. Side rails up.
--- NOTE | 2019-05-16 15:10 | NUR ---
Pt brought by , per pt presents to ER with frequent falls, weakness, dizziness and numbnes on L extremity for 3 to 4 days, skin pink and warm, cap refill <3, VSS, respirations even and unlabored, cap refill <3.
--- NOTE | 2019-05-16 15:20 | NUR ---
Dr Amor at bedside examining patient
[2019-05-16 16:52] LABS: HEMATOCRIT 33.7 % (36-48); HEMOGLOBIN 10.9 g/dL (12.0-16.0); MEAN CORPUSCULAR HEMOGLOBIN 30 pg (27-31); MEAN CORPUSCULAR HGB CONC 32 % (32-36); MEAN CORPUSCULAR VOLUME 91 fL (79.0-98.0); PLATELET COUNT (AUTO) 229 K/uL (130-430); RED BLOOD CELL COUNT(AUTO) 3.69 MIL/uL (4.2-6.2); RED CELL DISTRIBUTION WIDTH 17.4 % (9.0-15.0); WHITE BLOOD COUNT (AUTO) 6.4 K/uL (4.8-10.8)
[2019-05-16 16:58] LABS: CALCIUM 9.3 mg/dL (8.4-11.0); CREATININE 1.61 mg/dL (0.55-1.30); POTASSIUM 3.5 mmol/L (3.5-5.1)
--- NOTE | 2019-05-16 17:00 | NUR ---
Pt resting at this time, VSS, respirations even and unlabored.
[2019-05-16 17:01] LABS: PROTHROMBIN TIME 10.4 SECS (9.5-12.5)
[2019-05-16 17:04] LABS: ALBUMIN 3.5 g/dL (3.4-4.8); TOTAL BILIRUBIN 0.4 mg/dL (0.0-1.0)
[2019-05-16 17:24] LABS: BAND % (MANUAL) 2 % (0-6); BASOPHILS % (MANUAL) 0 % (0-2); EOSINOPHILS % (MANUAL) 0 % (0-7); LYMPHOCYTES % (MANUAL) 19 % (20-46); MONOCYTES % (MANUAL) 21 % (0-11)
[2019-05-16 17:36] LABS: BILIRUBIN,URINE NEGATIVE (NEGATIVE); BLOOD, URINE NEGATIVE (NEGATIVE); CLARITY/URINE CLEAR (CLEAR); COLOR,URINE YELLOW (YELLOW); GLUCOSE,URINE 2+ (NEGATIVE); KETONES,URINE NEGATIVE (NEGATIVE); LEUKOCYTE ESTERASE ,URINE NEGATIVE (NEGATIVE); NITRITE, URINE NEGATIVE (NEGATIVE); PROTEIN URINE NEGATIVE (NEGATIVE); UROBILINOGEN,URINE 0.2 (0.2-1.0)
[2019-05-16 17:58] LABS: BACTERIA,URINE FEW /HPF (None Seen); MUCUS,URINE None Seen /LPF (None Seen); RBC,URINE 0-3 /HPF (0-3); WBC,URINE 0-3 /HPF (0-3); YEAST,URINE Many /HPF (None Seen)
[2019-05-16] MEDS ORDERED: MORPHINE SULFATE 30 MG Immediate Release TABLET PO PRN (19:00)
[2019-05-16] MEDS ORDERED: BISACODYL 10 MG/SUPPOSITORY RC PRN (19:00)
[2019-05-16] MEDS ORDERED: ASPIRIN 81 MG TAB.CHEW PO ONE (19:00)
[2019-05-16] MEDS ORDERED: ACETAMINOPHEN 325 MG TABLET PO PRN (19:00)
[2019-05-16] MEDS ORDERED: ALBUTEROL SULFATE 0.083% 2.5 MG/3 ML VIAL.NEB INH PRN (19:00)
[2019-05-16] MEDS ORDERED: traMADol HCL HCL 50 MG TABLET (ULTRAM) PO PRN (19:00)
[2019-05-16] MEDS ORDERED: TEMAZEPAM 15 MG CAPSULE PO PRN (19:00)
[2019-05-16] MEDS ORDERED: DOCUSATE SODIUM 100 MG CAPSULE PO PRN (19:00)
[2019-05-16] MEDS ORDERED: MILK OF MAGNESIA 30 ML UDC PO PRN (19:00)
[2019-05-16] MEDS ORDERED: LORazepam 1 MG TABLET PO PRN (19:00)
[2019-05-16] MEDS ORDERED: DEXTROSE 50% JECT 50 ML DISP.SYRIN IV PRN (19:00)
--- NOTE | 2019-05-16 19:30 | NUR ---
VSS no s/s of acute distress. Resting on gurney rails up
[2019-05-16] MEDS: KCL 20 mEq in 0.45% NS 1000 mL 1,000 ML IV SCH (19:38)
[2019-05-16] MEDS ORDERED: GLUCAGON,HUMAN RECOMBINANT 1 MG VIAL IM PRN (20:30)
--- NOTE | 2019-05-16 20:59 | NUR ---
Patient will be admitted to care of Dr. Jung. Admitted to Med Surg unit. Will go to room 118A. Belongings list completed. Complete and up to date summary report printed. SBAR report to be given at bedside with opportunity for questions.
--- NOTE | 2019-05-16 20:59 | NUR ---
ADMISSION NOTE Received patient from ER via javed, received report from RIGGING HELPER. Patient admitted with diagnosis of MULTIPLE FALLS. Patient oriented to hospital routine, call light, toileting and safety-patient verbalized understanding.
[2019-05-16] MEDS: MEGESTROL ACETATE 40 MG TABLET PO SCH (21:00)
[2019-05-16] MEDS: MYCOPHENOLATE MOFETIL 250 MG CAPSULE PO SCH (21:00)
[2019-05-16] MEDS: MIRTAZAPINE 15 MG TABLET PO SCH (21:00)
[2019-05-16] MEDS: DONEPEZIL HCL 5 MG TABLET (ARICEPT) PO SCH (21:00)
[2019-05-16] MEDS: INSULIN GLARGINE 100 UNITS/ML 10 ML VIAL SUBCUT SCH (21:00)
[2019-05-16 21:14] VITALS: BP_SYST 160
[2019-05-16] MEDS ORDERED: FLU VACC TS2019(65UP)/MF59C/PF 45 MCG/0.5 ML SYRINGE I.M. PRN (21:45)
[2019-05-16 21:52] VITALS: BP_SYST 146
[2019-05-16 22:00] VITALS: BP_SYST 153
--- NOTE | 2019-05-16 22:00 | NUR ---
ADMISSION NOTE: RECIEVED REPORT ,A'/O/X/4, RESPIRATIONS EVEN AND UNLABORED, ROOM AIR, VOIDING CLEAR YELLOW URINE PER BEDPAN,RIGHT HAND #24 G INFUSING 1/2 NS +20MEQ K+ INFUSING @ 75 ML/HR, BLOOD GLUCOSE RESULTS = 237, RECEIVED 4 UNITS REGULAR INSULIN PER SLIDING SCALE,, SR'S UP X'S 2, CALL LIGHT WITHIN REACH, BED IN LOW POSITION SKIN INTACT, ADMISSION ASSESSMENT COMPLETED, PATIENT DENIES PAIN, WILL ONTINUE TO MON[place], PATIENT STATES SHE HAD TAKEN HER NIGHT MEDS ALREADY.
--- NOTE | 2019-05-17 | NUR ---
RN ROUNDS CONTINUES TO REST QUIETLY IN BED WITH EYES OPEN, GIVEN JUICE AND CRACKERS PER PT'S REQUEST TOLERATED 100%, VOIDING CLEAR YELLOW URINE PER BED LIMA.DENIES PAIN.
[2019-05-17] MEDS: INSULIN REGULAR, HUMAN 100 UNITS/ML, 10 ML VIAL (humuLIN R) SUBCUT PRN ×3 (06:29→17:30)
[2019-05-17] MEDS: SUCRALFATE 1 GM TABLET PO SCH ×3 (06:33→17:25)
--- NOTE | 2019-05-17 06:49 | NUR ---
CLOSING NOTE PATIENT A/O/X/4/, R HAND INFUSING 1/2 NS + 20 MEQ K+ @ 75 ML/HR, BLOOD SUGAR RESULTS = 198 RECIEVED 2 UNITS REGULAR INSULIN COVERAGE PER PROTOCOL, DENIES [PAIN, RESTING QUIETLY IN BED WITH EYES CLOSD, EASILY AROUSED.
--- NOTE | 2019-05-17 07:30 | NUR ---
Opening note Patient sitting up in bed at this time, A/Ox4, No SOB. No complaints of pain. Iv patent, intact, and infusing fluids as ordered. no adverse side effects noted. no infiltration noted. On safety and aspiration precautions, HOB kept elevated, 3 side rails up, call light within reach. Bed alarm on. patient in stable condition. Will continue to monitor.
[2019-05-17 08:00] VITALS: BP_SYST 168
[2019-05-17] MEDS ORDERED: NON-FORMULARY MEDICATION (Fesoterodine Fumarate (Toviaz) 4 MG) PO SCH (09:00)
[2019-05-17] MEDS: MEGESTROL ACETATE 40 MG TABLET PO SCH ×2 (09:00→21:00)
[2019-05-17] MEDS: FUROSEMIDE 40 MG TABLET PO SCH (09:00)
[2019-05-17] MEDS: CLOPIDOGREL BISULFATE 75 MG TABLET PO SCH (09:00)
--- NOTE | 2019-05-17 09:00 | NUR ---
medications All morning medications given as ordered. No adverse side effects noted. No nausea, no vomiting noted.
[2019-05-17] MEDS: amLODIPine BESYLATE 10 MG TABLET PO SCH (09:02)
[2019-05-17] MEDS: MYCOPHENOLATE MOFETIL 250 MG CAPSULE PO SCH ×2 (09:02→21:00)
[2019-05-17] MEDS: ASPIRIN 81 MG TAB.CHEW PO SCH (09:03)
[2019-05-17] MEDS: KCL 20 mEq in 0.45% NS 1000 mL 1,000 ML IV SCH (11:27)
--- NOTE | 2019-05-17 11:30 | NUR ---
Home medications sent to pharmacy empty bottles sent home with . Medications sent to pharmacy.
[2019-05-17] MEDS ORDERED: COR12.5 PO (11:51)
[2019-05-17] MEDS ORDERED: INSU100V9 SQ (11:53)
[2019-05-17] MEDS ORDERED: REM15 PO (12:01)
[2019-05-17] MEDS ORDERED: RANI-368 PO (12:01)
[2019-05-17] MEDS ORDERED: TACR1CAP PO (12:01)
[2019-05-17] MEDS ORDERED: PREDEYE1% EACH EYE (12:01)
[2019-05-17] MEDS ORDERED: PRED5TAB PO (12:01)
[2019-05-17 12:39] VITALS: BP_SYST 151
--- NOTE | 2019-05-17 12:45 | NUR ---
Accu check blood sugar checked, insulin given as ordered. No adverse side effects noted. patient in stable condition.
--- NOTE | 2019-05-17 14:05 | NUR ---
Patient pharmacy patient uses [facility] [phone]. Asked for patients medications to be faxed over. faxed received. medication list inside chart. medications entered into home medications.
--- NOTE | 2019-05-17 14:09 | NUR ---
Rounds patient sitting up in bed at this time, at bedside, patient denies pain. Offered to assist patient to bedside commode. patient declined need. no other needs at this time.
[2019-05-17] MEDS ORDERED: COR6.25 PO (14:58)
--- NOTE | 2019-05-17 16:00 | NUR ---
Rounds Patient resting in bed, denies pain. Offered patient assistance to the bedside commode, patient denied need. No other needs at this time.
[2019-05-17 16:12] VITALS: BP_SYST 125
--- NOTE | 2019-05-17 17:50 | NUR ---
elevated Blood sugar Patient noted with blood sugar of 431, insulin given, la TAV[facility]. Dr. Moffett stated he will come in and see the patient.
--- NOTE | 2019-05-17 18:21 | NUR ---
Closing note Patient sitting up in bed at this time, A/Ox4, No SOB. No complaints of pain. Iv patent, intact, and infusing fluids as ordered. no adverse side effects noted. no infiltration noted. On safety and aspiration precautions, HOB kept elevated, 3 side rails up, call light within reach. Bed alarm on. patient in stable condition. All needs met.
--- NOTE | 2019-05-17 19:25 | NUR ---
OPENING NOTES PATIENT IN BED RESTING. DENIES ANY PAIN. BREATHING UNLABORED ON ROOM AIR. IVF INFUSING WITH IV LINE INTACT. BED IN LOWEST LOCKED POSITION. CALL LIGHT WITH IN REACH. BED ALARM ON.
[2019-05-17] MEDS: MIRTAZAPINE 15 MG TABLET PO SCH (21:00)
[2019-05-17] MEDS: DONEPEZIL HCL 5 MG TABLET (ARICEPT) PO SCH (21:00)
[2019-05-17] MEDS: INSULIN GLARGINE 100 UNITS/ML 10 ML VIAL SUBCUT SCH (21:00)
[2019-05-17] MEDS ORDERED: CARVEDILOL 6.25 MG TABLET (COREG) PO SCH (21:00)
[2019-05-17] MEDS: OXYBUTYNIN CHLORIDE 5 MG TABLET PO SCH (21:00)
[2019-05-17 21:51] VITALS: BP_SYST 160
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
--- NOTE | 2019-05-17 22:22 | NUR ---
MED PASS PATIENT DUE MEDICATIONS REFUSED. STILL BEING SUSPICIOUS OF THINGS BEING HANDED TO HER. PATIENT ENCOURAGE TO TAKE HER MEDICATIONS AND SHOWED HER THE PILLS IN ITS ORIGINAL PACKAGING AND SEALED. PATIENT ONLY AGREED TO TAKE COREG FOR HER ELEVATED BP.
--- NOTE | 2019-05-17 23:00 | NUR ---
Opening Note Received plan of care from endorsing nurse Kayce EUBANKS. Completed bedside round.
[2019-05-17] MEDS ORDERED: ZOLPIDEM TARTRATE 5 MG TABLET PO ONE (23:30)
--- NOTE | 2019-05-18 | NUR ---
Patient pacing around the nursing station uncooperative. Per patient she is feeling worried and wants to go outside to smoke. Explained to patient that it is cold and raining outside and it would not be safe for her to go outside. Patient is waiting for her who is in ER. Was able to have patient sit on a chair rather than walking around because she is a fall risk.
[2019-05-18] MEDS: INSULIN REGULAR, HUMAN 100 UNITS/ML, 10 ML VIAL (humuLIN R) SUBCUT PRN (00:12)
--- NOTE | 2019-05-18 00:30 | NUR ---
Patient's brought by ER nurses to room 118. Patient will be roommates with patient. Patient now more cooperative and agreed to go back to bed. Patient assisted to bed and all safety measure met prior to leaving room.
[2019-05-18 01:15] VITALS: BP_SYST 143
[2019-05-18] MEDS: KCL 20 mEq in 0.45% NS 1000 mL 1,000 ML IV SCH (02:00)
--- NOTE | 2019-05-18 02:30 | NUR ---
Tried to insert IV to right upper arm 1 attempt. Was unable to successfully start IV. Prior efforts by both charge nurses also resulted in unsuccessful insertion of IV site.
[2019-05-18] MEDS ORDERED: TACROLIMUS ANHYDROUS 1 MG CAPSULE (PROGRAF) PO SCH (10:20)
[2019-05-18] MEDS ORDERED: INSULIN REGULAR, HUMAN 100 UNITS/ML, 10 ML VIAL SUBCUT ONE (17:35)
[2019-05-18] MEDS ORDERED: INSULIN GLARGINE 100 UNITS/ML 10 ML VIAL SUBCUT SCH (17:35)
--- NOTE | 2019-05-19 19:30 | NUR ---
CHANGE OF SHIFT; pt. alert, awake, denies any discomfort at this time. no acute distress. No IV access, MD aware. will reassess later. call light within reach.
--- NOTE | 2019-05-19 20:30 | NUR ---
NOTES: pt. awake, watching TV when rechecked. VS checked. moves all extremities. noted some discomfort on her kidneys per pt. repositioned self for comfort.
--- NOTE | 2019-05-19 21:30 | NUR ---
NOTES: all medications taken. BS checked 320 with sliding scale coverage, snacks given ( crackers/sandwich). pt. was assisted to restroom with NURSERY TEACHER with her walker. pt. gave her sleeping pill per her request.
--- NOTE | 2019-05-19 22:00 | NUR ---
NOTES: Dr. Moffett here, seen pt. and discharge tomorrow to [facility]. charge nurse Elin rao
--- NOTE | 2019-05-19 23:15 | NUR ---
NOTES: pt. requested for Tramadol and was given as ordered. kept comfortable in bed.
[2019-05-20 00:23] VITALS: BP_SYST 102
--- NOTE | 2019-05-20 00:30 | NUR ---
NOTES: noted relief, been dozing on and off. condition observed.
--- NOTE | 2019-05-20 03:00 | NUR ---
NOTES: made rounds and pt. sleeping. no further complaints.
--- NOTE | 2019-05-20 05:00 | NUR ---
NOTES: pt. been sleeping, gets up to restroom with cane and stand by with HEAD BUTLER>
--- NOTE | 2019-05-20 06:30 | NUR ---
CLOSING NOTES: BS checked 317, will give sliding scale coverage, no complaints. will be discharge today, pt. aware. for further care and assistance. call light at bedside.
[2019-05-20] MEDS: SUCRALFATE 1 GM TABLET PO SCH ×2 (06:41→12:39)
[2019-05-20] MEDS: INSULIN REGULAR, HUMAN 100 UNITS/ML, 10 ML VIAL (humuLIN R) SUBCUT PRN ×3 (07:16→17:23)
--- NOTE | 2019-05-20 08:00 | NUR ---
RN INITIAL NOTES RECEIVED PATIENT IN BED ALERT AWAKE AND VERBAL , SAFETY ENSURED , USED FWW FOR AMBULATION , NO DISTRESS NO FACIAL GRIMACE BUT NAUSEATED
[2019-05-20] MEDS: KCL 20 mEq in 0.45% NS 1000 mL 1,000 ML IV SCH ×2 (08:30→10:17)
[2019-05-20] MEDS: MEGESTROL ACETATE 40 MG TABLET PO SCH (09:00)
[2019-05-20] MEDS: CLOPIDOGREL BISULFATE 75 MG TABLET PO SCH (09:00)
[2019-05-20] MEDS ORDERED: VITS A AND D/WHITE PET/LANOLIN 113.4 GM TUBE TP SCH (09:00)
[2019-05-20] MEDS: ASPIRIN 81 MG TAB.CHEW PO SCH ×3 (09:00→09:41)
[2019-05-20] MEDS: OXYBUTYNIN CHLORIDE 5 MG TABLET PO SCH ×2 (09:32→09:33)
[2019-05-20] MEDS: FUROSEMIDE 40 MG TABLET PO SCH (09:38)
[2019-05-20] MEDS: amLODIPine BESYLATE 10 MG TABLET PO SCH (09:38)
--- NOTE | 2019-05-20 10:00 | NUR ---
JUSTIN PATIENT HAD X [address] SANDHU ORDERED JUSTIN AND ORDERED DISCHARGE TO [facility] WITH SAME ORDER. PATIENT MADE AWARE
[2019-05-20] MEDS ORDERED: ONDANSETRON 4 MG ODT TAB PO PRN (10:30)
--- NOTE | 2019-05-20 10:53 | NUR ---
General Service Officer:WEIR FISHERMAN to follow up with [facility] WEIR FISHERMAN called and spoke to Geovani Lorenzo who stated he was waiting for the packet to be faxd yesterday.WEIR FISHERMAN will fax over packet adarsh to . Bj received packet, will review and get back to WEIR FISHERMAN. Addendum: 05/20/19 at 1239 by Leti Birmingham WEIR FISHERMAN General Service Officer Follow up re. possible placement at [facility] WEIR FISHERMAN received phone call from Bj and stated pt. and spouse have been accepted into [facility] beds 48 A, 48B. WEIR FISHERMAN thanked him WEIR FISHERMAN called [facility] and spoke to Lisa who stated they can accommodate a 3 and 4 pm pt. moss picker. WEIR FISHERMAN called and spoke to Loyda Jarvis to tell her about the ambulance moss picker. WEIR FISHERMAN brought a packet to the Rn Station.
--- NOTE | 2019-05-20 12:00 | NUR ---
EATING PATIENT IS AWARE SHE IS GOING TO BE DC TO [facility]
[2019-05-20 12:33] VITALS: BP_SYST 160
--- NOTE | 2019-05-20 14:00 | NUR ---
REPORT TO [facility] PATIENT REPORT GIVEN TO [facility] THRU URIEL
--- NOTE | 2019-05-20 16:00 | NUR ---
TRANSPORT DELAY DEBRA FROM AMBULANCE CALLED AND STATED THERE WILL BE A DELAY IN MARKETING PROGRAM COORDINATOR PROB 530 PM D/T TO AMBULANCE SHORTCOMINGS , INFORMED CHARGE NURSE
--- NOTE | 2019-05-20 16:06 | NUR ---
Dietitian Recommendation * Recommend renal, [facility], RD Please refer to Nutrition Assessment for details. Signed: 05/20/19 at 1606 by Radha MARCANO <Co-Signature Required> Co-Signed: 05/20/19 at [address] Addendum: 05/20/19 at 1607 by Radha MARCANO Amended: Links added.
[2019-05-20 16:43] VITALS: BP_SYST 118
--- NOTE | 2019-05-20 18:45 | NUR ---
D/C Patient Patient given medication reconciliation form and D/C instructions. Exit Care provided. Patient verbalized understanding. MD discussed with patient the results and treatment provided. Ambulatory with steady gait USES W for discharge to [facility] Patient in stable condition, ID band removed. IV catheter removed, intact and dressing applied, no active bleeding. Rx of given. Patient educated on pain management. All belongings sent with patient.
--- NOTE | 2019-05-20 19:03 | NUR ---
D/C Patient Patient given medication reconciliation form and D/C instructions. Exit Care provided. Patient verbalized understanding. MD discussed with patient the results and treatment provided. Ambulatory with steady gait with FWW for discharge to home. Patient in stable condition, ID band removed. IV catheter removed, intact and dressing applied, no active bleeding. Rx of given. Patient educated on pain management. All belongings sent with patient.
[2019-06-01 17:16] LABS: HEMATOCRIT 37.1 % (36-48); HEMOGLOBIN 12.1 g/dL (12.0-16.0); MEAN CORPUSCULAR HEMOGLOBIN 30 pg (27-31); MEAN CORPUSCULAR HGB CONC 33 % (32-36); MEAN CORPUSCULAR VOLUME 92 fL (79.0-98.0); PLATELET COUNT (AUTO) 228 K/uL (130-430); RED BLOOD CELL COUNT(AUTO) 4.04 MIL/uL (4.2-6.2); RED CELL DISTRIBUTION WIDTH 17.2 % (9.0-15.0); WHITE BLOOD COUNT (AUTO) 6.4 K/uL (4.8-10.8)
[2019-06-01 17:48] LABS: ATYPICAL LYMPHOCYTES % 0 % (0-0); BASOPHILS % (MANUAL) 0 % (0-2); EOSINOPHILS % (MANUAL) 0 % (0-7); LYMPHOCYTES % (MANUAL) 17 % (20-46); MONOCYTES % (MANUAL) 18 % (0-11)
[2019-06-01 17:49] LABS: BAND % (MANUAL) 1 % (0-6)
[2019-06-01 17:53] LABS: CALCIUM 8.4 mg/dL (8.4-11.0); POTASSIUM 3.7 mmol/L (3.5-5.1)
[2019-06-01 17:54] LABS: CREATININE 1.71 mg/dL (0.55-1.30)
== END 2019-05-20 18:45 | DRG 682 ==
LOC: SED 14:29 → SMU 17:31
PROVIDERS: ADMIT Family Medicine; ATTEND Family Medicine
DX: N17.9 Acute kidney failure, unspecified (principal); G93.41 Metabolic encephalopathy; T86.19 Other complication of kidney transplant; G11.9 Hereditary ataxia, unspecified; Z94.0 Kidney transplant status; D64.9 Anemia, unspecified; E86.0 Dehydration; E11.22 Type 2 diabetes mellitus with diabetic chronic kidney disease; M19.90 Unspecified osteoarthritis, unspecified site; G89.29 Other chronic pain; F03.90 Unspecified dementia, unspecified severity, without behavioral disturbance, psychotic disturbance, mood disturbance, and anxiety; I12.9 Hypertensive chronic kidney disease with stage 1 through stage 4 chronic kidney disease, or unspecified chronic kidney disease; N18.9 Chronic kidney disease, unspecified; Y83.0 Surgical operation with transplant of whole organ as the cause of abnormal reaction of the patient, or of later complication, without mention of misadventure at the time of the procedure; R07.89 Other chest pain; R29.6 Repeated falls; Z79.4 Long term (current) use of insulin; Z86.73 Personal history of transient ischemic attack (TIA), and cerebral infarction without residual deficits; Z87.891 Personal history of nicotine dependence; Z90.710 Acquired absence of both cervix and uterus; Z79.899 Other long term (current) drug therapy; Z79.82 Long term (current) use of aspirin; Y92.89 Other specified places as the place of occurrence of the external cause; E11.65 Type 2 diabetes mellitus with hyperglycemia
CPT/HCPCS: 36415; 70450-TC; 71045; 80048; 80053; 81000-TC; 82962; 84484; 85007; 85025; 85027; 85610-TC; 85730-TC; 93005; 93306; 99285; J1815; J3480; J7507; J7517; Q0162

== ENCOUNTER 2019-06-10 13:23 | Inpatient (IN) | payer OTHER ==
[~2019-06-10] VITALS: Ht 170.2 cm; Wt 79.8 kg
[~2019-06-10 13:23] MED LIST changes: +COR6.25 PO; +INSU100V9 SQ; +PRED5TAB PO; +PREDEYE1% EACH EYE; +RANI-368 PO; +REM15 PO; +TACR1CAP PO
--- NOTE | 2019-06-10 13:25 | NUR ---
Placed in room 02 . Placed on slip cover cutter, blood pressure machine and pulse oximeter. To gown for exam. Side rails up.
--- NOTE | 2019-06-10 13:26 | NUR ---
ER Dr. Buck at bedside examining patient.
--- NOTE | 2019-06-10 13:26 | NUR ---
Patient arrived via EMS from home. Patient is awake, alert, and oriented x4. Patient is complaining of right flank since this morning. Patient presents with sharp right kidney and nausea. She has no other complaints at this time.
[2019-06-10 13:32] VITALS: BP_SYST 134
[2019-06-10] MEDS ORDERED: NACL 0.9% 1,000 ML IV ONE (13:37)
[2019-06-10] MEDS ORDERED: NACL 0.9% 1,000 ML IV SCH (13:37)
[2019-06-10] MEDS ORDERED: ONDANSETRON HCL 4 MG/2 ML VIAL IVP ONE (13:45)
[2019-06-10] MEDS ORDERED: MORPHINE 4 MG/ML INJ. SYRINGE IVP ONE ×2 (13:45→16:15)
[2019-06-10] MEDS ORDERED: KETOROLAC TROMETHAMINE 30 MG VIAL IVP ONE (13:45)
--- NOTE | 2019-06-10 14:21 | NUR ---
Plebotomy at bedside.
--- NOTE | 2019-06-10 14:32 | NUR ---
Patient transported to radiology via gurney, accompanied by motion picture camera lens technician, emt.
[2019-06-10 14:44] LABS: BASOPHILS % (AUTO) 0.6 % (0.0-2.0); EOSINOPHILS # (AUTO) 0.1 K/uL (0.0-0.4); EOSINOPHILS % (AUTO) 2.7 % (0.0-4.0); HEMOGLOBIN 10.1 g/dL (12.0-16.0); LYMPHOCYTES # (AUTO) 0.9 K/uL (1.0-5.5); LYMPHOCYTES % (AUTO) 18.6 % (20.5-51.5); MEAN CORPUSCULAR HEMOGLOBIN 30 pg (27-31); MEAN CORPUSCULAR HGB CONC 33 % (32-36); MEAN CORPUSCULAR VOLUME 92 fL (79.0-98.0); MONOCYTES # (AUTO) 0.7 K/uL (0.0-1.0); NEUTROPHILS # (AUTO) 2.9 K/uL (1.8-7.7); NEUTROPHILS % (AUTO) 63.1 % (40.0-70.0); PLATELET COUNT (AUTO) 211 K/uL (130-430); RED BLOOD CELL COUNT(AUTO) 3.37 MIL/uL (4.2-6.2); RED CELL DISTRIBUTION WIDTH 17.3 % (9.0-15.0); WHITE BLOOD COUNT (AUTO) 4.6 K/uL (4.8-10.8)
[2019-06-10 14:52] LABS: ANION GAP 11 (5-15); CALCIUM 8.5 mg/dL (8.4-11.0); CHLORIDE 103 mmol/L (98-107); CREATININE 1.53 mg/dL (0.55-1.30); GLUCOSE 75 mg/dL (70-99); SODIUM SERUM 137 mmol/L (136-145); UREA NITROGEN, BLOOD 23 mg/dL (8-21)
[2019-06-10 14:54] LABS: GFR AFRICAN AMERICAN 43 mL/min (>90); INR 0.9 (0.8-1.2); PROTHROMBIN TIME 9.4 SECS (9.5-12.5)
[2019-06-10] MEDS ORDERED: POTASSIUM CHLORIDE 20 MEQ/PKT PACKET PO ONE ×2 (15:00→16:45)
--- NOTE | 2019-06-10 15:00 | NUR ---
Returned from radiology, back to [facility].
[2019-06-10 15:11] LABS: ALBUMIN 3.2 g/dL (3.4-4.8); AMYLASE 25 U/L (0-100); ASPARTATE AMINOTRANSFERASE 11 U/L (10-37); LIPASE 48 U/L (73-393); TOTAL BILIRUBIN 0.3 mg/dL (0.0-1.0)
[2019-06-10 15:12] LABS: ALCOHOL, BLOOD < 3 mg/dL (<10); POTASSIUM 2.8 mmol/L (3.5-5.1)
[2019-06-10 15:25] LABS: ACETAMINOPHEN < 1 ug/mL (1-30); ALANINE AMINOTRANSFERASE 20 U/L (12-78)
--- NOTE | 2019-06-10 15:36 | NUR ---
Unable to obtain medication list. Patient's to return with list.
--- NOTE | 2019-06-10 16:00 | NUR ---
# 16 FR straight catheter with use of sterile technique. Immediate return of 100 cc yellow urine noted. Urine sample collected and sent to lab.
[2019-06-10 16:05] LABS: BILIRUBIN,URINE NEGATIVE (NEGATIVE); BLOOD, URINE NEGATIVE (NEGATIVE); COLOR,URINE YELLOW (YELLOW); GLUCOSE,URINE TRACE (NEGATIVE); KETONES,URINE NEGATIVE (NEGATIVE); LEUKOCYTE ESTERASE ,URINE 1+ (NEGATIVE); NITRITE, URINE NEGATIVE (NEGATIVE); PROTEIN URINE NEGATIVE (NEGATIVE); UROBILINOGEN,URINE 0.2 (0.2-1.0)
[2019-06-10 16:17] LABS: CLARITY/URINE HAZY (CLEAR)
[2019-06-10 16:18] LABS: RBC,URINE 0-3 /HPF (0-3)
[2019-06-10 16:19] LABS: BACTERIA,URINE MODERATE /HPF (None Seen); BARBITURATE, URINE NEGATIVE (NEG <=200); METHAMPHETAMINES SCREEN,URINE NEGATIVE (NEG <=500); MUCUS,URINE None Seen /LPF (None Seen); URINE AMPHETAMINE NEGATIVE (NEG <=500); URINE METHADONE NEGATIVE (NEG <=200); YEAST,URINE Many /HPF (None Seen)
[2019-06-10 16:20] LABS: BENZODIAZEPINE, URINE POSITIVE (NEG <=150); CANNABINOID, URINE NEGATIVE (NEG <=50); COCAINE, URINE NEGATIVE (NEG <=150); OPIATE, URINE POSITIVE (NEG <=100); PHENCYCLIDINE SCREEN,URINE NEGATIVE (NEG <=25); UR TRICYCLIC ANTIDEPRESSANTS NEGATIVE (NEG <=300); URINE OXYCODONE SCREEN NEGATIVE (NEG <=100); URINE PROPOXYPHENE SCREEN NEGATIVE (NEG <=300)
[2019-06-10] MEDS ORDERED: cefTRIAXone 1 GM IVPB PREMIX 50 ML IV ONE (16:45)
--- NOTE | 2019-06-10 17:34 | NUR ---
Patient will be admitted to care of Dr. Moffett. Admitted to medsurg unit. Room to be assigned by RAIMUNDO Hancock. Belongings list completed. Complete and up to date summary report printed. SBAR report to be given at bedside with opportunity for questions.
--- NOTE | 2019-06-10 18:20 | NUR ---
Admission Note Received patient from ER with diagnosis of Acute Cholecystitis. Initial Plan of Care discussed-patient verbalized her understanding. Family at bedside. Oriented to room, call light, pain management and safety.
--- NOTE | 2019-06-10 18:30 | NUR ---
[facility] to [facility] Licensed nurse present. IV present no signs or symptoms of infiltration.
[2019-06-10] MEDS ORDERED: ONDANSETRON HCL 4 MG/2 ML VIAL IVP PRN (19:15)
[2019-06-10] MEDS ORDERED: BISACODYL 10 MG/SUPPOSITORY RC PRN (19:15)
[2019-06-10] MEDS ORDERED: ALBUTEROL SULFATE 0.083% 2.5 MG/3 ML VIAL.NEB INH PRN (19:15)
[2019-06-10] MEDS ORDERED: DEXTROSE 50% JECT 50 ML DISP.SYRIN IV PRN (19:15)
[2019-06-10] MEDS ORDERED: MILK OF MAGNESIA 30 ML UDC PO PRN (19:15)
[2019-06-10] MEDS ORDERED: DOCUSATE SODIUM 100 MG CAPSULE PO PRN (19:15)
[2019-06-10] MEDS ORDERED: HYDROmorphone 1 MG INJ. 1 MG/ML AMPUL IVP PRN (19:15)
[2019-06-10] MEDS ORDERED: ACETAMINOPHEN 325 MG TABLET PO PRN (19:15)
--- NOTE | 2019-06-10 19:54 | NUR ---
CONSULTATION PAGED/CALLED Reason for Consultation: CHOLECYSTITIS Person Who was Notified: IGNACIO Consulting Physician: Server Engineer Specialty: SURGEON Ordering Physician:
[2019-06-10 19:59] VITALS: BP_SYST 156
[2019-06-10] MEDS ORDERED: LEVOFLOXACIN 500 MG/D5W 100 ML IV SCH (21:00)
[2019-06-10] MEDS: MYCOPHENOLATE MOFETIL 250 MG CAPSULE PO SCH (21:26)
[2019-06-10] MEDS: MEGESTROL ACETATE 40 MG TABLET PO SCH (21:27)
[2019-06-10] MEDS: DONEPEZIL HCL 5 MG TABLET (ARICEPT) PO SCH (21:27)
[2019-06-10] MEDS: SUCRALFATE 1 GM TABLET PO SCH (21:28)
[2019-06-10] MEDS: metroNIDAZOLE 500 mg/NS 100 ML IV SCH (21:33)
[2019-06-10] MEDS ORDERED: LEVOFLOXACIN 500 MG/D5W 100 ML IV ONE (21:44)
[2019-06-10] MEDS ORDERED: metroNIDAZOLE 500 mg/NS 200 ML IV ONE (21:44)
[2019-06-10] MEDS ORDERED: NS 0.45% IV ONE (21:44)
[2019-06-10] MEDS ORDERED: KCL IV ONE (21:44)
[2019-06-10] MEDS ORDERED: KCL 20 mEq in 0.45% NS 1000 mL 1,000 ML IV ONE (21:45)
[2019-06-10 23:00] VITALS: BP_SYST 156
[2019-06-10] MEDS: TEMAZEPAM 15 MG CAPSULE PO PRN (23:53)
--- NOTE | 2019-06-11 | NUR ---
PT HAVE NO CONTINOUS IV NS 75CC/HR . NO C/O PAIN
[2019-06-11 00:25] VITALS: BP_SYST 142
[2019-06-11 06:20] LABS: CREATININE 1.3 mg/dL (0.55-1.30); POTASSIUM 3.8 mmol/L (3.5-5.1)
[2019-06-11] MEDS: metroNIDAZOLE 500 mg/NS 100 ML IV SCH ×3 (06:27→22:19)
[2019-06-11] MEDS: SUCRALFATE 1 GM TABLET PO SCH ×3 (06:54→17:37)
[2019-06-11 07:04] LABS: BASOPHILS % (AUTO) 0.5 % (0.0-2.0); EOSINOPHILS # (AUTO) 0.2 K/uL (0.0-0.4); EOSINOPHILS % (AUTO) 2.8 % (0.0-4.0); HEMATOCRIT 29.7 % (36-48); HEMOGLOBIN 9.8 g/dL (12.0-16.0); LYMPHOCYTES # (AUTO) 1.1 K/uL (1.0-5.5); LYMPHOCYTES % (AUTO) 19.4 % (20.5-51.5); MEAN CORPUSCULAR HEMOGLOBIN 30 pg (27-31); MEAN CORPUSCULAR HGB CONC 33 % (32-36); MEAN CORPUSCULAR VOLUME 92 fL (79.0-98.0); MONOCYTES # (AUTO) 0.8 K/uL (0.0-1.0); MONOCYTES % (AUTO) 14.6 % (1.7-9.3); NEUTROPHILS # (AUTO) 3.5 K/uL (1.8-7.7); NEUTROPHILS % (AUTO) 62.7 % (40.0-70.0); PLATELET COUNT (AUTO) 210 K/uL (130-430); RED BLOOD CELL COUNT(AUTO) 3.25 MIL/uL (4.2-6.2); RED CELL DISTRIBUTION WIDTH 17.1 % (9.0-15.0); WHITE BLOOD COUNT (AUTO) 5.5 K/uL (4.8-10.8)
[2019-06-11 08:00] VITALS: BP_SYST 157
--- NOTE | 2019-06-11 08:00 | NUR ---
ASSUMPTION OF CARE: RECEIVED PT A/A/OX4, DX:ACUTE PAIN, R/T CHOLECYSTITIS, CURRENTLY DENIES HAVING PAIN, VSS, AFEBRILE, NO S/S OF DISTRESS, IV SITE INTACT, PATENT, NO REDNESS OR SWELLING, ORIENTED TO UNIT, CALL LIGHT PLACED WITHIN REACH, WILL CONT' TO MONITOR AND ASSESS.
--- NOTE | 2019-06-11 10:00 | NUR ---
NUCLEAR MED: PT OFF UNIT IN STABLE CONDITION FOR SCHEDULED HIDA SCAN, TRANSPORTED VIA WHEELCHAIR.
[2019-06-11] MEDS ORDERED: prednisoLONE 1% OPHTHALMIC SUSPN 5 ML OP ONE (11:00)
--- NOTE | 2019-06-11 11:00 | NUR ---
NEW IV INSERTION: IV INSERTED TO RIGHT SIDE NECK, GAUGE 22, X 1 ATTEMPT, PT IS HARD STICK, NO VISIBLE VEINS, TOLERATED WELL, WILL CONT' WITH POC.
--- NOTE | 2019-06-11 11:00 | NUR ---
NUCLEAR MED: PT KEPT NPO SINCE MIDNIGHT FOR SCHEDULED HIDA SCAN, TRANSPORTED TO RADIOLOGY VIA WHEELCHAIR, ACCOMPANIED BY STAFF, NEEDS MET, CONSENT SIGNED BY PATIENT. WILL CONT' WITH POC.
[2019-06-11 12:48] VITALS: BP_SYST 149
--- NOTE | 2019-06-11 13:00 | NUR ---
GLUCOSE MONITORING: BLOOD SUGAR ENHSE=254, NO COVERAGE REQUIRED, CLEAR LIQUID DIET PROVIDED, WILL CONT' TO MONITOR AND ASSESS.
[2019-06-11] MEDS: CARVEDILOL 6.25 MG TABLET (COREG) PO SCH (13:11)
[2019-06-11] MEDS: MEGESTROL ACETATE 40 MG TABLET PO SCH ×2 (13:11→22:17)
[2019-06-11] MEDS: ASPIRIN 81 MG TAB.CHEW PO SCH (13:12)
[2019-06-11] MEDS: amLODIPine BESYLATE 10 MG TABLET PO SCH (13:12)
[2019-06-11] MEDS: PREDNISONE 5 MG TABLET PO SCH (13:13)
--- NOTE | 2019-06-11 13:15 | NUR ---
HAND CUTTER APPRENTICE: MEDICATION ADMIN, PER ORDERED BY Alicia, TOLERATED WELL, WILL CONT' WITH POC.
[2019-06-11] MEDS: MYCOPHENOLATE MOFETIL 250 MG CAPSULE PO SCH ×2 (13:16→22:17)
[2019-06-11] MEDS: TACROLIMUS ANHYDROUS 1 MG CAPSULE (PROGRAF) PO SCH (13:17)
[2019-06-11] MEDS: MIRTAZAPINE 15 MG TABLET PO SCH (13:29)
--- NOTE | 2019-06-11 15:30 | NUR ---
VISIT: AT BEDSIDE FOR ASSESSMENT OF PT, DISCUSSED POC, PT VERBALIZES UNDERSTANDING, NEW ORDERS GIVEN, WILL CONT' WITH PLAN OF CARE.
--- NOTE | 2019-06-11 15:53 | NUR ---
Cm attempted to do DCPA, pt on HIDA scan.
[2019-06-11 16:40] VITALS: BP_SYST 140
[2019-06-11] MEDS: INSULIN REGULAR, HUMAN 100 UNITS/ML, 10 ML VIAL (humuLIN R) SUBCUT PRN (17:42)
[2019-06-11 20:00] VITALS: BP_SYST 140
--- NOTE | 2019-06-11 22:00 | NUR ---
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 vital sign stable. pt on iv 1/2ns plus 20 kcl at 75/hr pt had a stble vital sign . pt dedicated .
[2019-06-11] MEDS: TEMAZEPAM 15 MG CAPSULE PO PRN (22:18)
[2019-06-11] MEDS: DONEPEZIL HCL 5 MG TABLET (ARICEPT) PO SCH (22:18)
--- NOTE | 2019-06-12 | NUR ---
pt medicated with night meds . pt blood sugar is 476. pt covered with med insullin . with recheck pt blooblood sugar in the morning.
[2019-06-12 00:16] VITALS: BP_SYST 148
--- NOTE | 2019-06-12 04:50 | NUR ---
pt still sleeping . will check blood in the morning .
[2019-06-12] MEDS: metroNIDAZOLE 500 mg/NS 100 ML IV SCH ×3 (06:37→21:12)
[2019-06-12] MEDS: SUCRALFATE 1 GM TABLET PO SCH ×2 (06:40→11:30)
[2019-06-12 08:00] VITALS: BP_SYST 162
[2019-06-12] MEDS: MIRTAZAPINE 15 MG TABLET PO SCH (09:00)
[2019-06-12] MEDS: PREDNISONE 5 MG TABLET PO SCH (09:00)
[2019-06-12] MEDS: TACROLIMUS ANHYDROUS 1 MG CAPSULE (PROGRAF) PO SCH (09:00)
[2019-06-12] MEDS: MEGESTROL ACETATE 40 MG TABLET PO SCH ×2 (09:00→21:12)
[2019-06-12] MEDS: ASPIRIN 81 MG TAB.CHEW PO SCH (09:00)
[2019-06-12] MEDS: MYCOPHENOLATE MOFETIL 250 MG CAPSULE PO SCH ×2 (09:00→21:11)
[2019-06-12] MEDS: amLODIPine BESYLATE 10 MG TABLET PO SCH (09:00)
[2019-06-12] MEDS: prednisoLONE 1% OPHTHALMIC SUSPN 5 ML OP SCH (09:00)
[2019-06-12] MEDS: CARVEDILOL 6.25 MG TABLET (COREG) PO SCH (09:01)
[2019-06-12] MEDS: LEVOFLOXACIN 250 MG/D5W 50 ML IV SCH (09:08)
[2019-06-12] MEDS: KCL 20 mEq in 0.45% NS 1000 mL 1,000 ML IV SCH ×2 (09:15→21:12)
--- NOTE | 2019-06-12 11:30 | NUR ---
OR: PT OFF UNIT TO OR FOR SCHEDULED PROCURE (ROBERT MANNING), CONDITION IS STABLE, VS WNL, NO S/S OF DISTRESS, TRANSPORTED VIA BED, WILL CONT' WITH PLAN OF CARE.
[2019-06-12] MEDS ORDERED: IOHEXOL 50 ML IV ONE (11:38)
[2019-06-12] MEDS ORDERED: BUPIVACAINE LIPOSOME/PF 266 MG/20 ML VIAL INFIL ONE (12:00)
--- NOTE | 2019-06-12 12:31 | NUR ---
Cable Television Line Technician: met with pt. and conduct a DCPA REGISTERED DENTAL HYGIENIST met with pt. who was pleasant and able to answer REGISTERED DENTAL HYGIENIST's questions. Pt. easily partiacipated, knew her Dx. and was ready for her procedure. She stated upon D/C, she and her who is also a current pt. here at [facility], will return to [facility]. Once she leaves [facility], she has an apartment. she was able to secure after being on a wait list for a while. She will live there with her . This address is [address] [place] [address] in [place], $800 per month. Pt. denies being homeless. Pt, stated her cell phone was on her bed yesterday and now she has discovered it is lost. She stated staff made a good attempt at trying to help her find it, but it was never recovered. She stated she hopes staff can call [employer] today and get it replaced. She stated it was a [employer] phone and it was their only phone. He does not have one. Pt. stated upon D/C she will use [employer] for transportation. She did not have any questions. REGISTERED DENTAL HYGIENIST will remain available as needed. Addendum: 06/12/19 at 1240 by Leti [place] REGISTERED DENTAL HYGIENIST Cable Television Line Technician: complete notes REGISTERED DENTAL HYGIENIST asked pt. if she had ever been Dx. with any mental health issues. Pt. denied this and stated she is fine, not depressed and is doing well. Pt. did state prior to leaving [facility] for [facility], they gave her medication for depression ,but stated she does not take it. She said she feels her told the staff at [facility] she was depressed and this really bothered her because she is not depressed. She said she feels fine. She denied feeling suicidal. ALVAREZ thanked her for all of her info.
[2019-06-12 12:35] VITALS: BP_SYST 150
[2019-06-12] MEDS ORDERED: ONDANSETRON HCL 4 MG/2 ML VIAL IVP PRN (13:15)
[2019-06-12] MEDS ORDERED: fentaNYL CITRATE/PF 100 MCG/2 ML AMP IVP PRN ×2 (13:15)
[2019-06-12] MEDS ORDERED: ACETAMINOPHEN/CODEINE 300 MG-30 MG TABLET PO PRN (13:45)
[2019-06-12] MEDS ORDERED: PROPOFOL 200MG/ 20ML VIAL (DIPRIVAN) IV ONE (14:10)
[2019-06-12] MEDS ORDERED: MIDAZOLAM HCL 5 MG/ML VIAL (VERSED) IV ONE (14:10)
[2019-06-12] MEDS ORDERED: [UNRECOGNIZED DRUG - OTHER] IV ONE (14:10)
[2019-06-12] MEDS ORDERED: LR 1,000 ML IV.SOLN IV ONE (14:10)
[2019-06-12] MEDS ORDERED: LEVOFLOXACIN IV ONE (14:10)
[2019-06-12] MEDS ORDERED: ROCURONIUM BROMIDE 10 MG/ML (ZEMURON) ONE (14:10)
[2019-06-12] MEDS ORDERED: NS IRRIG SOLN 1000 ML IR ONE (14:10)
[2019-06-12] MEDS ORDERED: fentaNYL CITRATE/PF 100 MCG/2 ML AMP ONE ×2 (14:10→14:48)
[2019-06-12] MEDS ORDERED: PHENYLEPHRINE HCL 10 MG/ML VIAL (NEOSYNEPHRINE) ONE (14:10)
[2019-06-12] MEDS ORDERED: NS 1000 ML IV.SOLN IV ONE (14:10)
[2019-06-12] MEDS ORDERED: GLYCOPYRROLATE 0.2 MG/ML VIAL ONE (14:10)
[2019-06-12] MEDS ORDERED: SEVOFLURANE 15 MIN GAS INH ONE (14:10)
[2019-06-12] MEDS ORDERED: ONDANSETRON HCL 4 MG/2 ML VIAL ONE (14:19)
[2019-06-12] MEDS ORDERED: METOCLOPRAMIDE HCL 10 MG/2 ML VIAL ONE (14:33)
--- NOTE | 2019-06-12 15:15 | NUR ---
POST SURGERY: PT RETURNED TO ROOM FROM RECOVERY IN STABLE CONDITION, FOUR SMALL ABDOMINAL INCISIONS COVERED WITH CLEAN, DRY DRSG AND TEGADERM, NO DRAINAGE OR SWELLING NOTED, PT ASLEEP, EASILY AROUSED VIA VERBAL STIMULI, VSS, CALL LIGHT PLACED WITHIN REACH, WILL CONT' TO MONITOR AND ASSESS.
[2019-06-12 15:20] VITALS: BP_SYST 150
[2019-06-12] MEDS: MORPHINE 4 MG/ML INJ. SYRINGE IVP PRN ×2 (16:31→21:14)
--- NOTE | 2019-06-12 17:00 | NUR ---
NURSES NOTES: PT ASSESSED FOR PAIN AND COMFORT, TOLERATING WELL AT THIS TIME, ASSISTED ONTO BEDPAN, CALL LIGHT PLACED WITHIN REACH, WILL CONT' TO MONITOR AND ASSESS.
--- NOTE | 2019-06-12 18:00 | NUR ---
GLUCOSE MONITORING: BLOOD SUGAR CZYVK=082, COVERED WITH 6 UNITS REGULAR INSULIN SQ, TOLERATED WELL, WILL CONT' TO MONITOR AND ASSESS.
--- NOTE | 2019-06-12 19:00 | NUR ---
END OF SHIFT: PT RESTING IN POSITION OF COMFORT, NEEDS MET, CONDITION IS STABLE, CALL LIGHT WITHIN REACH, WILL ENDORSE TO SEAT COVER CUTTER NURSE.
[2019-06-12 21:00] VITALS: BP_SYST 153
[2019-06-12] MEDS: DONEPEZIL HCL 5 MG TABLET (ARICEPT) PO SCH (21:13)
[2019-06-12] MEDS: LORazepam 1 MG TABLET PO PRN (21:13)
[2019-06-12] MEDS: INSULIN REGULAR, HUMAN 100 UNITS/ML, 10 ML VIAL (humuLIN R) SUBCUT PRN (21:17)
--- NOTE | 2019-06-12 22:15 | NUR ---
MORPHINE SULFATE 4MG IVP administer for GENERAL PAIN 12/21 and HELPFUL .
[2019-06-13] VITALS (7 sets, daily range): BP systolic 135–166
--- NOTE | 2019-06-13 | NUR ---
LORAZEPAM 0.5 MG PO administer for GENERAL AGITATION & HELPFUL .
--- NOTE | 2019-06-13 00:09 | NUR ---
TURNING Repositioning OFF LOADING with PILLOWS ON SCHEDULE kept clean ALSO DRY NEEDED & PRN , HOB ELEVATED CALL acevedo with patient no SOB NOTED / .
--- NOTE | 2019-06-13 03:30 | NUR ---
PATIENT WANTING TO CLIMB OUT OF BED BED ALARM IS ON & STAY WITH PATIENT FALL MEASURES IN PLACE / .
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
[2019-06-13] MEDS: metroNIDAZOLE 500 mg/NS 100 ML IV SCH ×3 (06:45→22:02)
[2019-06-13] MEDS: INSULIN REGULAR, HUMAN 100 UNITS/ML, 10 ML VIAL (humuLIN R) SUBCUT PRN ×4 (06:47→22:05)
[2019-06-13] MEDS: SUCRALFATE 1 GM TABLET PO SCH ×3 (06:51→16:48)
[2019-06-13] MEDS: prednisoLONE 1% OPHTHALMIC SUSPN 5 ML OP SCH (09:00)
[2019-06-13] MEDS: ASPIRIN 81 MG TAB.CHEW PO SCH (09:08)
[2019-06-13] MEDS: MYCOPHENOLATE MOFETIL 250 MG CAPSULE PO SCH ×2 (09:09→22:04)
[2019-06-13] MEDS: CARVEDILOL 6.25 MG TABLET (COREG) PO SCH (09:09)
[2019-06-13] MEDS: amLODIPine BESYLATE 10 MG TABLET PO SCH (09:10)
[2019-06-13] MEDS: PREDNISONE 5 MG TABLET PO SCH (09:10)
[2019-06-13] MEDS: MEGESTROL ACETATE 40 MG TABLET PO SCH ×2 (09:10→22:02)
[2019-06-13] MEDS: MIRTAZAPINE 15 MG TABLET PO SCH (09:12)
[2019-06-13] MEDS: TACROLIMUS ANHYDROUS 1 MG CAPSULE (PROGRAF) PO SCH (09:12)
--- NOTE | 2019-06-13 09:18 | NUR ---
Routine Patient ambulated with walker to bathroom and back to bed. Scheduled medications given per order. Patient stable at this time.
[2019-06-13] MEDS: LEVOFLOXACIN 250 MG/D5W 50 ML IV SCH (10:20)
[2019-06-13] MEDS: KCL 20 mEq in 0.45% NS 1000 mL 1,000 ML IV SCH ×2 (12:30→22:03)
--- NOTE | 2019-06-13 16:55 | NUR ---
DC PLANNING: FAXED CLINICAL PACKET TO [facility] @
--- NOTE | 2019-06-13 20:19 | NUR ---
Patient awake alert AMBULATING close to Nursing station FALL RISK MEASURES implemented assist as needed continue to monitor .
[2019-06-13] MEDS: LORazepam 1 MG TABLET PO PRN (21:49)
--- NOTE | 2019-06-13 22:00 | NUR ---
PHONED PAGED DR ANAMARIA TAVARES NEW ORDERS FOR DISCHARGE TO [facility] IN AM .
[2019-06-13] MEDS: DONEPEZIL HCL 5 MG TABLET (ARICEPT) PO SCH (22:02)
--- NOTE | 2019-06-13 23:50 | NUR ---
LORAZEPAM 0.5 MG PO ADMINISTER FOR AGITATION & HELPFUL .
--- NOTE | 2019-06-13 23:51 | NUR ---
TYLENOL # 3 PO administer for general pain off loading with pillows implemented & also helpful .
--- NOTE | 2019-06-14 02:58 | NUR ---
ASSIST PATIENT OUT OF BED USE OF BSC , FALL MEASURES IMPLEMENTED FREQUENT VISUAL MONITOR FOR SAFETY & EFFECTIVE .
[2019-06-14] MEDS: metroNIDAZOLE 500 mg/NS 100 ML IV SCH (06:51)
[2019-06-14] MEDS: INSULIN REGULAR, HUMAN 100 UNITS/ML, 10 ML VIAL (humuLIN R) SUBCUT PRN (06:54)
[2019-06-14] MEDS: SUCRALFATE 1 GM TABLET PO SCH (06:55)
--- NOTE | 2019-06-14 07:15 | NUR ---
OPENING NOTE RECEIVED PT RESTING IN BED. CHEST RISE AND FALL NOTED. VITAL SIGNS STABLE. NO ACUTE DISTRESS NOTED. BED IN LOWEST AND LOCKED POSITION. CALL LIGHT IN REACH. FALL AND ASPIRATION PRECAUTIONS NOTED. ALL NEEDS MET. PAIN IS CONTROLLED. IV LINE INTACT AND PATENT. RUNNING IV FLUIDS. TOLERATING WELL. CONTINUE TO MONITOR.
[2019-06-14 07:30] VITALS: BP_SYST 153
[2019-06-14] MEDS: CARVEDILOL 6.25 MG TABLET (COREG) PO SCH (08:09)
[2019-06-14] MEDS: amLODIPine BESYLATE 10 MG TABLET PO SCH (08:09)
[2019-06-14] MEDS: MIRTAZAPINE 15 MG TABLET PO SCH (08:10)
[2019-06-14] MEDS: MYCOPHENOLATE MOFETIL 250 MG CAPSULE PO SCH (08:10)
[2019-06-14] MEDS: MEGESTROL ACETATE 40 MG TABLET PO SCH (08:10)
[2019-06-14] MEDS: ASPIRIN 81 MG TAB.CHEW PO SCH (08:10)
[2019-06-14] MEDS: LEVOFLOXACIN 250 MG/D5W 50 ML IV SCH (08:10)
[2019-06-14] MEDS: TACROLIMUS ANHYDROUS 1 MG CAPSULE (PROGRAF) PO SCH (08:10)
[2019-06-14] MEDS: PREDNISONE 5 MG TABLET PO SCH (08:10)
[2019-06-14] MEDS: prednisoLONE 1% OPHTHALMIC SUSPN 5 ML OP SCH (08:12)
--- NOTE | 2019-06-14 08:38 | NUR ---
DR. CONRAD/ JEREMIAH IJ SPOKE TO DR. CONRAD. RECEIVED ORDERS TO D/C ABX AND IJ LINE FOR DISCHARGE.
[2019-06-14 08:44] VITALS: BP_SYST 153
--- NOTE | 2019-06-14 08:45 | NUR ---
IJ REMOVED PER MD ORDER, IJ DISCONTINUED AND REMOVED. CATHETER INTACT. NO ACTIVE BLEEDING. NO COMPLICATIONS NOTED. PT TOLERATED WELL.
--- NOTE | 2019-06-14 09:00 | NUR ---
CALL TO SON CALL TO LEVI MUNOZ [phone]. DID NOT ANSWER, VOICEMAIL FULL. UNABLE TO LEAVE MESSAGE. WILL ATTEMPT AGAIN LATER.
--- NOTE | 2019-06-14 09:15 | NUR ---
REPORT TO EDILBERTO FOR TRANSFER [facility] CASANOVA FROM [facility] RECEIVED REPORT FOR TRANSFER.
--- NOTE | 2019-06-14 10:25 | NUR ---
PT TRANSFERRED Report given to RA[facility]DO Batista at [facility]. Transfer packet with Transfer Orders and Medication Reconciliation form given to EMT with report. Exitcare provided. [facility] ID band removed, replaced with ID band with pt's name and . IJ catheter removed, intact and dressing applied, no active bleeding. All belongings sent with patient. Patient left floor via gurney escorted by EMT in no distress.
== END 2019-06-14 10:30 | DRG 417 ==
LOC: SED 13:23 → SMU 17:32
PROVIDERS: ADMIT Family Medicine; ATTEND Family Medicine
PROC: BF131ZZ Fluoroscopy of Gallbladder and Bile Ducts using Low Osmolar Contrast (ICD-10-PCS; 2019-06-12)
PROC: 0FN44ZZ Release Gallbladder, Percutaneous Endoscopic Approach (ICD-10-PCS; 2019-06-12)
PROC: 0FT44ZZ Resection of Gallbladder, Percutaneous Endoscopic Approach (ICD-10-PCS; principal; 2019-06-12 12:45)
DX: K80.12 Calculus of gallbladder with acute and chronic cholecystitis without obstruction (principal); K56.2 Volvulus; N12 Tubulo-interstitial nephritis, not specified as acute or chronic; Z94.0 Kidney transplant status; D64.9 Anemia, unspecified; E66.9 Obesity, unspecified; F17.210 Nicotine dependence, cigarettes, uncomplicated; E87.6 Hypokalemia; E11.9 Type 2 diabetes mellitus without complications; I10 Essential (primary) hypertension; Z90.710 Acquired absence of both cervix and uterus; Z79.899 Other long term (current) drug therapy; Z68.27 Body mass index [BMI] 27.0-27.9, adult; Z79.82 Long term (current) use of aspirin; Z79.4 Long term (current) use of insulin
CPT/HCPCS: 36415; 71045; 74300; 78226; 80048; 80053; 80307; 81000-TC; 82150-TC; 82550-TC; 82962; 83605; 83690-TC; 84484; 85025; 85610-TC; 85730-TC; 86886; 86900; 86901; 87040-TC; 87081; 87086; 88304; 93005; 96365; 96375; 99285; A9537; C1727; C9290; G0480; G0481; G0482; J0696; J1815; J1885; J1956; J2250; J2270; J2370; J2405; J2704; J2765; J3010; J3480; J3490; J7030; J7120; J7507; J7512; J7517; Q9967

== ENCOUNTER 2021-10-23 19:06 | Inpatient (IN) | payer OTHER, MEDICAID ==
[~2021-10-23] VITALS: Ht 165.1 cm; Wt 64.9 kg
[2021-10-23 19:06] VITALS: BP_SYST 122
[~2021-10-23 19:06] MED LIST changes: -ACET-2165 PO; +ACET325T PO; +MIRT-114 PO; -REM15 PO; -TACR1CAP PO; +TACR1CAP2 PO
[2021-10-23] MEDS ORDERED: DIPHENHYDRAMINE INJ 50 MG/ML VIAL IVP ONE (19:45)
[2021-10-23] MEDS ORDERED: LORazepam 2 MG/ML VIAL IVP ONE (19:45)
[2021-10-23] MEDS ORDERED: HALOPERIDOL LACTATE 5 MG/ML VIAL IVP ONE (19:45)
[2021-10-23 21:11] LABS: BASOPHILS # (AUTO) 0.1 K/uL (0.0-0.2); BASOPHILS % (AUTO) 0.3 % (0.0-2.0); EOSINOPHILS # (AUTO) 0.2 K/uL (0.0-0.4); EOSINOPHILS % (AUTO) 1.1 % (0.0-4.0); HEMATOCRIT 26.9 % (36-48); HEMOGLOBIN 8.7 g/dL (12.0-16.0); LYMPHOCYTES # (AUTO) 2.9 K/uL (1.0-5.5); LYMPHOCYTES % (AUTO) 16.7 % (20.5-51.5); MEAN CORPUSCULAR HEMOGLOBIN 32 pg (27-31); MEAN CORPUSCULAR HGB CONC 32 % (32-36); MEAN CORPUSCULAR VOLUME 97 fL (79.0-98.0); MONOCYTES # (AUTO) 0.8 K/uL (0.0-1.0); MONOCYTES % (AUTO) 4.4 % (1.7-9.3); NEUTROPHILS # (AUTO) 13.3 K/uL (1.8-7.7); NEUTROPHILS % (AUTO) 77.5 % (40.0-70.0); PLATELET COUNT (AUTO) 422 K/uL (130-430); RED BLOOD CELL COUNT(AUTO) 2.77 MIL/uL (4.2-6.2); RED CELL DISTRIBUTION WIDTH 15.8 % (9.0-15.0); WHITE BLOOD COUNT (AUTO) 17.2 K/uL (4.8-10.8)
[2021-10-23 21:32] LABS: CALCIUM 10.1 mg/dL (8.4-11.0); CREATININE 5.62 mg/dL (0.55-1.30)
[2021-10-23 21:35] LABS: ALBUMIN 2.9 g/dL (3.4-4.8); TOTAL BILIRUBIN 0.2 mg/dL (0.0-1.0)
[2021-10-23 22:43] LABS: BILIRUBIN,URINE NEGATIVE (NEGATIVE); BLOOD, URINE 3+ (NEGATIVE); CLARITY/URINE CLOUDY (CLEAR); COLOR,URINE YELLOW (YELLOW); GLUCOSE,URINE 3+ (NEGATIVE); KETONES,URINE TRACE (NEGATIVE); LEUKOCYTE ESTERASE ,URINE 2+ (NEGATIVE); NITRITE, URINE NEGATIVE (NEGATIVE); PH,URINE 7.5 (5.0-8.0); PROTEIN URINE 3+ (NEGATIVE); UROBILINOGEN,URINE 0.2 (0.2-1.0)
[2021-10-23] MEDS ORDERED: cefTRIAXone 1 GM IVPB PREMIX 50 ML IV ONE (23:00)
[2021-10-23 23:03] LABS: BACTERIA,URINE MANY /HPF (None Seen); MUCUS,URINE None Seen /LPF (None Seen); RBC,URINE >100 /HPF (0-3); WBC,URINE >100 /HPF (0-3)
[2021-10-24] VITALS (7 sets, daily range): BP systolic 96–159
[2021-10-24] MEDS ORDERED: MAGNESIUM SULFATE 50 ML IV PRN (07:30)
[2021-10-24] MEDS ORDERED: MUPIROCIN 2% TOPICAL OINTMENT 22 GM NS PRN (07:30)
[2021-10-24] MEDS ORDERED: ONDANSETRON HCL 4 MG/2 ML VIAL IVP PRN (07:30)
[2021-10-24] MEDS ORDERED: DOCUSATE SODIUM 100 MG CAPSULE PO PRN (07:30)
[2021-10-24] MEDS ORDERED: ACETAMINOPHEN 325 MG TABLET PO PRN (07:30)
[2021-10-24] MEDS ORDERED: DEXTROSE 50% JECT 50 ML DISP.SYRIN IVP PRN (07:30)
[2021-10-24] MEDS ORDERED: NALOXONE HCL 0.4 MG/ML AMP (NARCAN) IVP PRN ×2 (07:30)
[2021-10-24] MEDS ORDERED: POTASSIUM CHLORIDE 20 MEQ TAB.PRT.SR PO PRN (07:30)
[2021-10-24] MEDS ORDERED: MORPHINE 2 MG/ML INJ. SYRINGE IVP PRN ×2 (07:30)
[2021-10-24] MEDS ORDERED: ALBUTEROL SULFATE 0.083% 2.5 MG/3 ML VIAL.NEB INH PRN (07:30)
[2021-10-24] MEDS: CARVEDILOL 6.25 MG TABLET (COREG) PO SCH (08:26)
[2021-10-24] MEDS: TACROLIMUS ANHYDROUS 1 MG CAPSULE (PROGRAF) PO SCH (08:26)
[2021-10-24] MEDS: ASPIRIN 81 MG TAB.CHEW PO SCH (08:27)
[2021-10-24] MEDS: CLOPIDOGREL BISULFATE 75 MG TABLET PO SCH (08:27)
[2021-10-24] MEDS: FUROSEMIDE 40 MG TABLET PO SCH (08:27)
[2021-10-24] MEDS: predniSONE 5 MG TABLET PO SCH (08:27)
[2021-10-24] MEDS: amLODIPine BESYLATE 10 MG TABLET PO SCH (08:27)
[2021-10-24] MEDS: NACL 0.9% 1,000 ML IV SCH ×2 (08:28→22:34)
[2021-10-24 08:29] LABS: CALCIUM 10.1 mg/dL (8.4-11.0); CREATININE 5.91 mg/dL (0.55-1.30); POTASSIUM 4.7 mmol/L (3.5-5.1)
[2021-10-24 09:54] LABS: BASOPHILS # (AUTO) 0.1 K/uL (0.0-0.2); BASOPHILS % (AUTO) 0.6 % (0.0-2.0); EOSINOPHILS # (AUTO) 0.3 K/uL (0.0-0.4); EOSINOPHILS % (AUTO) 2.1 % (0.0-4.0); HEMOGLOBIN 9.5 g/dL (12.0-16.0); LYMPHOCYTES # (AUTO) 4.9 K/uL (1.0-5.5); MEAN CORPUSCULAR HEMOGLOBIN 31 pg (27-31); MEAN CORPUSCULAR HGB CONC 32 % (32-36); MEAN CORPUSCULAR VOLUME 98 fL (79.0-98.0); MONOCYTES # (AUTO) 0.8 K/uL (0.0-1.0); MONOCYTES % (AUTO) 4.8 % (1.7-9.3); NEUTROPHILS # (AUTO) 10.7 K/uL (1.8-7.7); NEUTROPHILS % (AUTO) 63.5 % (40.0-70.0); PLATELET COUNT (AUTO) 434 K/uL (130-430); RED BLOOD CELL COUNT(AUTO) 3.06 MIL/uL (4.2-6.2); RED CELL DISTRIBUTION WIDTH 16.5 % (9.0-15.0); WHITE BLOOD COUNT (AUTO) 16.8 K/uL (4.8-10.8)
[2021-10-24] MEDS ORDERED: EPOETIN ALFA 3,000 UNITS/ML VIAL SUBCUT ONE (12:00)
[2021-10-24] MEDS: INSULIN LISPRO SLIDING SCALE 100 UNITS/ML VIAL (humaLOG) SUBCUT PRN ×3 (13:25→22:33)
[2021-10-24] MEDS: LORazepam 2 MG/ML VIAL IVP PRN (17:46)
[2021-10-24] MEDS ORDERED: cefTRIAXone 1 GM IVPB PREMIX 50 ML IV ONE (21:51)
[2021-10-24] MEDS: cefTRIAXone 1 GM IVPB PREMIX 50 ML IV SCH (21:53)
[2021-10-24] MEDS: ACETAMINOPHEN 325 MG TABLET PO PRN (22:23)
[2021-10-24] MEDS: DONEPEZIL HCL 5 MG TABLET (ARICEPT) PO SCH (22:23)
[2021-10-24] MEDS: QUEtiapine FUMARATE 25 MG TABLET PO SCH (22:23)
[2021-10-24] MEDS: ZOLPIDEM TARTRATE 5 MG TABLET PO PRN (22:24)
[2021-10-25 02:01] VITALS: BP_SYST 129
[2021-10-25] MEDS: INSULIN LISPRO SLIDING SCALE 100 UNITS/ML VIAL (humaLOG) SUBCUT PRN ×4 (06:38→21:06)
[2021-10-25 07:11] LABS: BASOPHILS # (AUTO) 0.1 K/uL (0.0-0.2); BASOPHILS % (AUTO) 0.4 % (0.0-2.0); EOSINOPHILS # (AUTO) 0.3 K/uL (0.0-0.4); HEMATOCRIT 24.4 % (36-48); HEMOGLOBIN 7.7 g/dL (12.0-16.0); LYMPHOCYTES # (AUTO) 3.3 K/uL (1.0-5.5); LYMPHOCYTES % (AUTO) 20.3 % (20.5-51.5); MEAN CORPUSCULAR HEMOGLOBIN 31 pg (27-31); MEAN CORPUSCULAR HGB CONC 32 % (32-36); MEAN CORPUSCULAR VOLUME 99 fL (79.0-98.0); MONOCYTES % (AUTO) 6.2 % (1.7-9.3); NEUTROPHILS # (AUTO) 11.4 K/uL (1.8-7.7); NEUTROPHILS % (AUTO) 71.1 % (40.0-70.0); PLATELET COUNT (AUTO) 383 K/uL (130-430); RED BLOOD CELL COUNT(AUTO) 2.47 MIL/uL (4.2-6.2)
[2021-10-25 07:19] LABS: CALCIUM 8.5 mg/dL (8.4-11.0); CREATININE 3.25 mg/dL (0.55-1.30); POTASSIUM 3.7 mmol/L (3.5-5.1)
[2021-10-25 07:25] LABS: ALBUMIN 2.6 g/dL (3.4-4.8); BILIRUBIN,DIRECT 0.2 mg/dL (0.0-0.3); TOTAL BILIRUBIN 0.1 mg/dL (0.0-1.0)
[2021-10-25 08:47] VITALS: BP_SYST 122
[2021-10-25] MEDS: FUROSEMIDE 40 MG TABLET PO SCH (09:51)
[2021-10-25] MEDS: CARVEDILOL 6.25 MG TABLET (COREG) PO SCH (09:51)
[2021-10-25] MEDS: predniSONE 5 MG TABLET PO SCH (09:51)
[2021-10-25] MEDS: TACROLIMUS ANHYDROUS 1 MG CAPSULE (PROGRAF) PO SCH (09:51)
[2021-10-25] MEDS: amLODIPine BESYLATE 10 MG TABLET PO SCH (09:52)
[2021-10-25] MEDS: CLOPIDOGREL BISULFATE 75 MG TABLET PO SCH (09:52)
[2021-10-25] MEDS: ASPIRIN 81 MG TAB.CHEW PO SCH (09:52)
[2021-10-25 12:43] VITALS: BP_SYST 156
[2021-10-25 16:30] VITALS: BP_SYST 141
[2021-10-25] MEDS: NACL 0.9% 1,000 ML IV SCH (17:51)
[2021-10-25] MEDS: ACETAMINOPHEN 325 MG TABLET PO PRN (17:57)
[2021-10-25 20:00] VITALS: BP_SYST 140
[2021-10-25] MEDS: QUEtiapine FUMARATE 25 MG TABLET PO SCH (20:38)
[2021-10-25] MEDS: ZOLPIDEM TARTRATE 5 MG TABLET PO PRN (20:39)
[2021-10-25] MEDS: DONEPEZIL HCL 5 MG TABLET (ARICEPT) PO SCH (20:39)
[2021-10-25] MEDS: LORazepam 2 MG/ML VIAL IVP PRN (20:42)
[2021-10-25] MEDS ORDERED: cefTRIAXone 1 GM IVPB PREMIX 50 ML IV ONE (21:15)
[2021-10-25] MEDS: cefTRIAXone 1 GM IVPB PREMIX 50 ML IV SCH (21:50)
[2021-10-26] VITALS: BP_SYST 136
[2021-10-26 01:26] VITALS: BP_SYST 138
[2021-10-26] MEDS: LORazepam 2 MG/ML VIAL IVP PRN (06:32)
[2021-10-26] MEDS: INSULIN LISPRO SLIDING SCALE 100 UNITS/ML VIAL (humaLOG) SUBCUT PRN ×4 (06:35→21:12)
[2021-10-26 07:00] LABS: BASOPHILS % (AUTO) 0.4 % (0.0-2.0); EOSINOPHILS # (AUTO) 0.5 K/uL (0.0-0.4); EOSINOPHILS % (AUTO) 3.5 % (0.0-4.0); HEMATOCRIT 25.8 % (36-48); HEMOGLOBIN 8.3 g/dL (12.0-16.0); LYMPHOCYTES # (AUTO) 3.6 K/uL (1.0-5.5); LYMPHOCYTES % (AUTO) 27.5 % (20.5-51.5); MEAN CORPUSCULAR HEMOGLOBIN 31 pg (27-31); MEAN CORPUSCULAR HGB CONC 32 % (32-36); MEAN CORPUSCULAR VOLUME 98 fL (79.0-98.0); MONOCYTES # (AUTO) 0.8 K/uL (0.0-1.0); MONOCYTES % (AUTO) 6.3 % (1.7-9.3); NEUTROPHILS # (AUTO) 8.2 K/uL (1.8-7.7); NEUTROPHILS % (AUTO) 62.3 % (40.0-70.0); PLATELET COUNT (AUTO) 398 K/uL (130-430); RED BLOOD CELL COUNT(AUTO) 2.63 MIL/uL (4.2-6.2); RED CELL DISTRIBUTION WIDTH 16.8 % (9.0-15.0); WHITE BLOOD COUNT (AUTO) 13.2 K/uL (4.8-10.8)
[2021-10-26 07:10] LABS: CALCIUM 8.1 mg/dL (8.4-11.0); CREATININE 3.87 mg/dL (0.55-1.30); POTASSIUM 3.8 mmol/L (3.5-5.1)
[2021-10-26 08:00] VITALS: BP_SYST 161
[2021-10-26] MEDS: ASPIRIN 81 MG TAB.CHEW PO SCH (08:41)
[2021-10-26] MEDS: FUROSEMIDE 40 MG TABLET PO SCH (08:42)
[2021-10-26] MEDS: CLOPIDOGREL BISULFATE 75 MG TABLET PO SCH (08:43)
[2021-10-26] MEDS: amLODIPine BESYLATE 10 MG TABLET PO SCH (08:43)
[2021-10-26] MEDS: predniSONE 5 MG TABLET PO SCH (08:43)
[2021-10-26] MEDS: CARVEDILOL 6.25 MG TABLET (COREG) PO SCH (08:43)
[2021-10-26] MEDS: TACROLIMUS ANHYDROUS 1 MG CAPSULE (PROGRAF) PO SCH (08:44)
[2021-10-26] MEDS: NACL 0.9% 1,000 ML IV SCH (09:30)
[2021-10-26 12:00] VITALS: BP_SYST 131
[2021-10-26] MEDS: MEROPENEM 500 MG in NS 50 ML IV SCH ×2 (15:31→21:01)
[2021-10-26 16:00] VITALS: BP_SYST 146
[2021-10-26 20:00] VITALS: BP_SYST 109
[2021-10-26] MEDS: QUEtiapine FUMARATE 25 MG TABLET PO SCH (20:58)
[2021-10-26] MEDS: DONEPEZIL HCL 5 MG TABLET (ARICEPT) PO SCH (20:58)
[2021-10-27] VITALS (8 sets, daily range): BP systolic 110–158
[2021-10-27] MEDS: NACL 0.9% 1,000 ML IV SCH ×2 (02:31→18:55)
[2021-10-27] MEDS: INSULIN LISPRO SLIDING SCALE 100 UNITS/ML VIAL (humaLOG) SUBCUT PRN ×3 (05:54→21:13)
[2021-10-27] MEDS: MEROPENEM 500 MG in NS 50 ML IV SCH ×3 (05:57→21:19)
[2021-10-27 06:29] LABS: BASOPHILS % (AUTO) 0.3 % (0.0-2.0); EOSINOPHILS # (AUTO) 0.3 K/uL (0.0-0.4); EOSINOPHILS % (AUTO) 2.3 % (0.0-4.0); HEMATOCRIT 27.2 % (36-48); HEMOGLOBIN 8.7 g/dL (12.0-16.0); LYMPHOCYTES # (AUTO) 2.9 K/uL (1.0-5.5); LYMPHOCYTES % (AUTO) 19.5 % (20.5-51.5); MEAN CORPUSCULAR HEMOGLOBIN 32 pg (27-31); MEAN CORPUSCULAR HGB CONC 32 % (32-36); MEAN CORPUSCULAR VOLUME 98 fL (79.0-98.0); MONOCYTES # (AUTO) 1.1 K/uL (0.0-1.0); NEUTROPHILS # (AUTO) 10.7 K/uL (1.8-7.7); NEUTROPHILS % (AUTO) 70.9 % (40.0-70.0); PLATELET COUNT (AUTO) 391 K/uL (130-430); RED BLOOD CELL COUNT(AUTO) 2.76 MIL/uL (4.2-6.2); RED CELL DISTRIBUTION WIDTH 16.7 % (9.0-15.0); WHITE BLOOD COUNT (AUTO) 15.1 K/uL (4.8-10.8)
[2021-10-27 06:49] LABS: CALCIUM 9.3 mg/dL (8.4-11.0); CREATININE 4.62 mg/dL (0.55-1.30); POTASSIUM 3.6 mmol/L (3.5-5.1)
[2021-10-27] MEDS: LORazepam 2 MG/ML VIAL IVP PRN (11:35)
[2021-10-27] MEDS: CARVEDILOL 6.25 MG TABLET (COREG) PO SCH (14:16)
[2021-10-27] MEDS: CLOPIDOGREL BISULFATE 75 MG TABLET PO SCH (14:17)
[2021-10-27] MEDS: ASPIRIN 81 MG TAB.CHEW PO SCH (14:17)
[2021-10-27] MEDS: FUROSEMIDE 40 MG TABLET PO SCH (14:17)
[2021-10-27] MEDS: predniSONE 5 MG TABLET PO SCH (14:17)
[2021-10-27] MEDS: amLODIPine BESYLATE 10 MG TABLET PO SCH (14:17)
[2021-10-27] MEDS: TACROLIMUS ANHYDROUS 1 MG CAPSULE (PROGRAF) PO SCH (14:18)
[2021-10-27] MEDS ORDERED: EPOETIN ALFA 3,000 UNITS/ML VIAL SUBCUT SCH (17:00)
[2021-10-27] MEDS: QUEtiapine FUMARATE 25 MG TABLET PO SCH (21:11)
[2021-10-27] MEDS: DONEPEZIL HCL 5 MG TABLET (ARICEPT) PO SCH (21:11)
[2021-10-27] MEDS: ZOLPIDEM TARTRATE 5 MG TABLET PO PRN (22:53)
[2021-10-28 00:08] VITALS: BP_SYST 98
[2021-10-28] MEDS: MEROPENEM 500 MG in NS 50 ML IV SCH (05:56)
[2021-10-28] MEDS: INSULIN LISPRO SLIDING SCALE 100 UNITS/ML VIAL (humaLOG) SUBCUT PRN ×2 (05:59→11:37)
[2021-10-28 06:30] LABS: BASOPHILS % (AUTO) 0.3 % (0.0-2.0); EOSINOPHILS # (AUTO) 0.2 K/uL (0.0-0.4); EOSINOPHILS % (AUTO) 1.9 % (0.0-4.0); HEMATOCRIT 26.4 % (36-48); HEMOGLOBIN 8.5 g/dL (12.0-16.0); LYMPHOCYTES # (AUTO) 2.8 K/uL (1.0-5.5); LYMPHOCYTES % (AUTO) 22.5 % (20.5-51.5); MEAN CORPUSCULAR HEMOGLOBIN 31 pg (27-31); MEAN CORPUSCULAR HGB CONC 32 % (32-36); MEAN CORPUSCULAR VOLUME 98 fL (79.0-98.0); MONOCYTES # (AUTO) 1.1 K/uL (0.0-1.0); MONOCYTES % (AUTO) 8.4 % (1.7-9.3); NEUTROPHILS # (AUTO) 8.4 K/uL (1.8-7.7); NEUTROPHILS % (AUTO) 66.9 % (40.0-70.0); PLATELET COUNT (AUTO) 385 K/uL (130-430); RED CELL DISTRIBUTION WIDTH 17.8 % (9.0-15.0); WHITE BLOOD COUNT (AUTO) 12.6 K/uL (4.8-10.8)
[2021-10-28 07:43] LABS: CALCIUM 8.9 mg/dL (8.4-11.0); CREATININE 3.13 mg/dL (0.55-1.30); POTASSIUM 3.5 mmol/L (3.5-5.1)
[2021-10-28 07:59] VITALS: BP_SYST 163
[2021-10-28 08:00] VITALS: BP_SYST 134
[2021-10-28] MEDS: LORazepam 2 MG/ML VIAL IVP PRN (08:10)
[2021-10-28] MEDS: ASPIRIN 81 MG TAB.CHEW PO SCH (09:06)
[2021-10-28] MEDS: CARVEDILOL 6.25 MG TABLET (COREG) PO SCH (09:07)
[2021-10-28] MEDS: FUROSEMIDE 40 MG TABLET PO SCH (09:07)
[2021-10-28] MEDS: predniSONE 5 MG TABLET PO SCH (09:07)
[2021-10-28] MEDS: CLOPIDOGREL BISULFATE 75 MG TABLET PO SCH (09:08)
[2021-10-28] MEDS: amLODIPine BESYLATE 10 MG TABLET PO SCH (09:08)
[2021-10-28] MEDS ORDERED: MERO500P IV (11:03)
[2021-10-28 11:25] VITALS: BP_SYST 97
[2021-10-28] MEDS: NACL 0.9% 1,000 ML IV SCH (11:30)
[2021-10-28 15:16] VITALS: BP_SYST 137
[2021-10-28 15:49] VITALS: BP_SYST 137
[2021-10-29] MEDS ORDERED: MEROPENEM 500 MG in NS 50 ML IV SCH (09:00)
== END 2021-10-28 16:20 | DRG 871 ==
LOC: SED 19:06 → STU 23:42
PROVIDERS: ADMIT General Practice; ATTEND General Practice
PROC: 5A1D70Z Performance of Urinary Filtration, Intermittent, Less than 6 Hours Per Day (ICD-10-PCS; principal; 2021-10-24)
PROC: 5A1D70Z Performance of Urinary Filtration, Intermittent, Less than 6 Hours Per Day (ICD-10-PCS; 2021-10-27)
DX: A41.9 Sepsis, unspecified organism (principal); N17.0 Acute kidney failure with tubular necrosis; N18.6 End stage renal disease; N39.0 Urinary tract infection, site not specified; E44.0 Moderate protein-calorie malnutrition; T86.19 Other complication of kidney transplant; G93.40 Encephalopathy, unspecified; I12.0 Hypertensive chronic kidney disease with stage 5 chronic kidney disease or end stage renal disease; F03.90 Unspecified dementia, unspecified severity, without behavioral disturbance, psychotic disturbance, mood disturbance, and anxiety; K21.9 Gastro-esophageal reflux disease without esophagitis; D63.1 Anemia in chronic kidney disease; R53.81 Other malaise; Y83.0 Surgical operation with transplant of whole organ as the cause of abnormal reaction of the patient, or of later complication, without mention of misadventure at the time of the procedure; F29 Unspecified psychosis not due to a substance or known physiological condition; E11.319 Type 2 diabetes mellitus with unspecified diabetic retinopathy without macular edema; Z20.822 Contact with and (suspected) exposure to COVID-19; E11.22 Type 2 diabetes mellitus with diabetic chronic kidney disease; Y92.89 Other specified places as the place of occurrence of the external cause; Z99.2 Dependence on renal dialysis
CPT/HCPCS: 36415; 71045; 76376; 80048; 80053; 80076; 81000; 82962; 83036; 83605; 83735; 85025; 87040; 87081; 87086; 93005; 96374; 96375; 99285; G0378; J0696; J0885; J1200; J1630; J2060; J2185; J7507; J7512

== ENCOUNTER 2022-03-07 14:33 | Inpatient (IN) | payer OTHER, MEDICAID ==
[~2022-03-07] VITALS: Ht 175.3 cm; Wt 75.5 kg
[~2022-03-07 14:33] MED LIST changes: -ACET325T PO; -ALBU2.5V7 INH; -FESO4TAB PO; -LORA-258 PO; -MEGE40TA PO; +MERO500P IV; -MIRT-114 PO; -MOM PO; -MORP15TA PO; -PREDEYE1% EACH EYE; -RANI-368 PO; -SUCR1TAB78 PO; -TEMA15CA5 PO; -TRAM50TA2 PO
[2022-03-07 14:40] VITALS: BP_SYST 114
[2022-03-07] MEDS ORDERED: LORazepam 2 MG/ML VIAL ONE (14:44)
[2022-03-07] MEDS ORDERED: LORazepam 2 MG/ML VIAL IVP ONE (15:00)
[2022-03-07] MEDS ORDERED: LORazepam 2 MG/ML VIAL IM ONE (15:00)
[2022-03-07] MEDS ORDERED: levETIRAcetam 1,000 MG IV BAG 100 ML IV ONE (15:45)
[2022-03-07 16:04] LABS: BASOPHILS % (AUTO) 0.2 % (0.0-2.0); EOSINOPHILS # (AUTO) 0.2 K/uL (0.0-0.4); EOSINOPHILS % (AUTO) 1.8 % (0.0-4.0); HEMATOCRIT 33.3 % (36-48); LYMPHOCYTES # (AUTO) 1.7 K/uL (1.0-5.5); LYMPHOCYTES % (AUTO) 12.1 % (20.5-51.5); MEAN CORPUSCULAR VOLUME 92 fL (79.0-98.0); MONOCYTES # (AUTO) 0.6 K/uL (0.0-1.0); MONOCYTES % (AUTO) 4.1 % (1.7-9.3); NEUTROPHILS # (AUTO) 11.1 K/uL (1.8-7.7); NEUTROPHILS % (AUTO) 81.8 % (40.0-70.0); PLATELET COUNT (AUTO) 486 K/uL (130-430); RED BLOOD CELL COUNT(AUTO) 3.61 MIL/uL (4.2-6.2); WHITE BLOOD COUNT (AUTO) 13.6 K/uL (4.8-10.8)
[2022-03-07 17:48] LABS: ANION GAP 13 (5-15); CALCIUM 9.9 mg/dL (8.4-11.0); CHLORIDE 91 mmol/L (98-107); CREATININE 1.86 mg/dL (0.55-1.30); GLUCOSE 269 mg/dL (70-99); UREA NITROGEN, BLOOD 19 mg/dL (8-21)
[2022-03-07 18:06] LABS: GFR AFRICAN AMERICAN 34 mL/min (>90)
[2022-03-07 18:07] LABS: ALANINE AMINOTRANSFERASE 29 U/L (12-78); ALBUMIN 3.3 g/dL (3.4-4.8); ASPARTATE AMINOTRANSFERASE 28 U/L (10-37); FREE T4 (FREE THYROXINE) 1.3 ng/dl (0.8-1.5); TOTAL BILIRUBIN 0.4 mg/dL (0.0-1.0)
[2022-03-07 18:12] LABS: ACETAMINOPHEN < 1 ug/mL (1-30); ALCOHOL, BLOOD < 3 mg/dL (<10)
[2022-03-07 19:06] LABS: BARBITURATE, URINE NEGATIVE (NEG <=200); BENZODIAZEPINE, URINE NEGATIVE (NEG <=150); CANNABINOID, URINE NEGATIVE (NEG <=50); COCAINE, URINE NEGATIVE (NEG <=150); METHAMPHETAMINES SCREEN,URINE NEGATIVE (NEG <=500); OPIATE, URINE POSITIVE (NEG <=100); PHENCYCLIDINE SCREEN,URINE NEGATIVE (NEG <=25); UR TRICYCLIC ANTIDEPRESSANTS NEGATIVE (NEG <=300); URINE AMPHETAMINE NEGATIVE (NEG <=500); URINE METHADONE NEGATIVE (NEG <=200); URINE OXYCODONE SCREEN NEGATIVE (NEG <=100); URINE PROPOXYPHENE SCREEN NEGATIVE (NEG <=300)
[2022-03-07] MEDS ORDERED: KCL 20 mEq in 100 mL (PREMIX) 100 ML IV ONE ×2 (19:15→21:51)
[2022-03-07 19:19] LABS: BILIRUBIN,URINE NEGATIVE (NEGATIVE); BLOOD, URINE 1+ (NEGATIVE); CLARITY/URINE CLOUDY (CLEAR); COLOR,URINE YELLOW (YELLOW); GLUCOSE,URINE NEGATIVE (NEGATIVE); KETONES,URINE NEGATIVE (NEGATIVE); LEUKOCYTE ESTERASE ,URINE 3+ (NEGATIVE); NITRITE, URINE NEGATIVE (NEGATIVE); PH,URINE 7.5 (5.0-8.0); PROTEIN URINE 2+ (NEGATIVE); UROBILINOGEN,URINE 0.2 (0.2-1.0)
[2022-03-07 19:37] LABS: BACTERIA,URINE MANY /HPF (None Seen); WBC,URINE >100 /HPF (0-3)
[2022-03-07 19:38] LABS: MUCUS,URINE None Seen /LPF (None Seen)
[2022-03-07] MEDS ORDERED: NACL 0.9% 1,000 ML IV ONE (19:45)
[2022-03-07 21:41] VITALS: BP_SYST 137
[2022-03-07] MEDS ORDERED: BISACODYL 5 MG TABLET.DR (DULCOLAX) PO PRN (23:30)
[2022-03-07 23:57] LABS: ACETONE, SERUM NEGATIVE (NEGATIVE)
[2022-03-08 00:59] LABS: PROTHROMBIN TIME 9.7 SECS (9.5-12.5)
[2022-03-08] MEDS ORDERED: HYDROcodone/ACETAMIN 10-325 MG TAB PO PRN (04:15)
[2022-03-08] MEDS ORDERED: ACETAMINOPHEN 325 MG TABLET PO PRN ×2 (04:15→07:00)
[2022-03-08] MEDS ORDERED: HYDROcodone/ACETAMIN 5-325 MG TAB (NORCO/ VICODIN) PO PRN (04:15)
[2022-03-08] MEDS ORDERED: NALOXONE HCL 0.4 MG/ML AMP (NARCAN) IVP PRN ×2 (04:15)
[2022-03-08] MEDS ORDERED: DOCUSATE SODIUM 100 MG CAPSULE PO PRN (04:15)
[2022-03-08] MEDS ORDERED: LORazepam 1 MG TABLET PO PRN (04:15)
[2022-03-08] MEDS ORDERED: ONDANSETRON HCL 4 MG/2 ML VIAL IVP PRN (04:15)
[2022-03-08] MEDS ORDERED: MEROPENEM 500 MG IVPB PREMIX 50 ML IV SCH (06:00)
[2022-03-08] MEDS ORDERED: NORMAL SALINE 5 ML DISP.SYRIN IVF SCH (06:00)
[2022-03-08] MEDS: NORMAL SALINE 5 ML DISP.SYRIN IVF SCH ×3 (06:35→23:58)
[2022-03-08 08:14] VITALS: BP_SYST 120
[2022-03-08] MEDS: ASPIRIN 81 MG TAB.CHEW PO SCH (09:45)
[2022-03-08] MEDS: TACROLIMUS ANHYDROUS 1 MG CAPSULE (PROGRAF) PO SCH (09:45)
[2022-03-08] MEDS: mycophenolate mofetiL 250 MG CAPSULE PO SCH ×2 (09:45→23:55)
[2022-03-08] MEDS: CLOPIDOGREL BISULFATE 75 MG TABLET PO SCH (09:45)
[2022-03-08] MEDS: predniSONE 5 MG TABLET PO SCH (09:45)
[2022-03-08] MEDS: CARVEDILOL 6.25 MG TABLET (COREG) PO SCH (09:46)
[2022-03-08] MEDS: amLODIPine BESYLATE 10 MG TABLET PO SCH (09:46)
[2022-03-08 11:28] LABS: ALBUMIN 3.2 g/dL (3.4-4.8); CALCIUM 9.8 mg/dL (8.4-11.0); CREATININE 2.51 mg/dL (0.55-1.30); TOTAL BILIRUBIN 0.4 mg/dL (0.0-1.0)
[2022-03-08 11:40] VITALS: BP_SYST 129
[2022-03-08] MEDS: INSULIN REGULAR, HUMAN 100 UNITS/ML, 3 ML VIAL (humuLIN R) SUBCUT PRN ×2 (12:29→17:00)
[2022-03-08] MEDS ORDERED: CEFEPIME 2 GM in D5W 100 ML IV SCH (12:30)
[2022-03-08] MEDS: CEFEPIME 2 GM in NS 100 ML IV SCH (13:49)
[2022-03-08] MEDS: metroNIDAZOLE 250 mg/NS 50 ML IV SCH ×2 (13:53→23:58)
[2022-03-08] MEDS ORDERED: MEROPENEM 500 MG in NS 50 ML IV SCH (14:00)
[2022-03-08 15:34] LABS: BASOPHILS # (AUTO) 0.1 K/uL (0.0-0.2); BASOPHILS % (AUTO) 0.5 % (0.0-2.0); EOSINOPHILS # (AUTO) 0.2 K/uL (0.0-0.4); EOSINOPHILS % (AUTO) 1.6 % (0.0-4.0); HEMATOCRIT 32.6 % (36-48); LYMPHOCYTES # (AUTO) 2.4 K/uL (1.0-5.5); LYMPHOCYTES % (AUTO) 17.4 % (20.5-51.5); MEAN CORPUSCULAR VOLUME 95 fL (79.0-98.0); MONOCYTES # (AUTO) 0.9 K/uL (0.0-1.0); MONOCYTES % (AUTO) 6.8 % (1.7-9.3); NEUTROPHILS # (AUTO) 10.2 K/uL (1.8-7.7); NEUTROPHILS % (AUTO) 73.7 % (40.0-70.0); PLATELET COUNT (AUTO) 493 K/uL (130-430); RED BLOOD CELL COUNT(AUTO) 3.43 MIL/uL (4.2-6.2); RED CELL DISTRIBUTION WIDTH 18.6 % (9.0-15.0); WHITE BLOOD COUNT (AUTO) 13.8 K/uL (4.8-10.8)
[2022-03-08 15:38] VITALS: BP_SYST 131
[2022-03-08 19:00] VITALS: BP_SYST 102
[2022-03-08 20:00] VITALS: BP_SYST 102
[2022-03-08] MEDS: DONEPEZIL HCL 5 MG TABLET (ARICEPT) PO SCH (23:55)
[2022-03-08] MEDS: MIRTAZAPINE 15 MG TABLET PO SCH (23:56)
[2022-03-09] VITALS: BP_SYST 104
[2022-03-09] MEDS: INSULIN REGULAR, HUMAN 100 UNITS/ML, 3 ML VIAL (humuLIN R) SUBCUT PRN ×5 (00:03→22:03)
[2022-03-09] MEDS: LORazepam 2 MG/ML VIAL IVP PRN ×2 (00:05→17:26)
[2022-03-09] MEDS: metroNIDAZOLE 250 mg/NS 50 ML IV SCH ×3 (05:41→22:13)
[2022-03-09] MEDS: NORMAL SALINE 5 ML DISP.SYRIN IVF SCH ×3 (05:41→22:07)
[2022-03-09] MEDS: CARVEDILOL 6.25 MG TABLET (COREG) PO SCH (09:00)
[2022-03-09] MEDS: amLODIPine BESYLATE 10 MG TABLET PO SCH (09:00)
[2022-03-09 09:13] VITALS: BP_SYST 90
[2022-03-09] MEDS: ASPIRIN 81 MG TAB.CHEW PO SCH (09:20)
[2022-03-09] MEDS: predniSONE 5 MG TABLET PO SCH (09:20)
[2022-03-09] MEDS: CLOPIDOGREL BISULFATE 75 MG TABLET PO SCH (09:20)
[2022-03-09] MEDS: mycophenolate mofetiL 250 MG CAPSULE PO SCH ×2 (09:21→22:13)
[2022-03-09 09:22] LABS: ALBUMIN 2.8 g/dL (3.4-4.8); CALCIUM 9.5 mg/dL (8.4-11.0); CREATININE 4.25 mg/dL (0.55-1.30); TOTAL BILIRUBIN 0.3 mg/dL (0.0-1.0)
[2022-03-09 09:24] LABS: BASOPHILS # (AUTO) 0.1 K/uL (0.0-0.2); BASOPHILS % (AUTO) 0.5 % (0.0-2.0); EOSINOPHILS # (AUTO) 0.1 K/uL (0.0-0.4); EOSINOPHILS % (AUTO) 0.6 % (0.0-4.0); HEMATOCRIT 31.8 % (36-48); LYMPHOCYTES # (AUTO) 0.7 K/uL (1.0-5.5); LYMPHOCYTES % (AUTO) 4.7 % (20.5-51.5); MEAN CORPUSCULAR VOLUME 92 fL (79.0-98.0); MONOCYTES # (AUTO) 0.2 K/uL (0.0-1.0); MONOCYTES % (AUTO) 1.2 % (1.7-9.3); NEUTROPHILS # (AUTO) 14.2 K/uL (1.8-7.7); PLATELET COUNT (AUTO) 396 K/uL (130-430); RED BLOOD CELL COUNT(AUTO) 3.47 MIL/uL (4.2-6.2); RED CELL DISTRIBUTION WIDTH 18.2 % (9.0-15.0); WHITE BLOOD COUNT (AUTO) 15.3 K/uL (4.8-10.8)
[2022-03-09] MEDS: TACROLIMUS ANHYDROUS 1 MG CAPSULE (PROGRAF) PO SCH (09:39)
[2022-03-09] MEDS: CEFEPIME 2 GM in NS 100 ML IV SCH (11:51)
[2022-03-09 12:40] VITALS: BP_SYST 100
[2022-03-09 15:41] VITALS: BP_SYST 109
[2022-03-09 20:00] VITALS: BP_SYST 102
[2022-03-09] MEDS: MIRTAZAPINE 15 MG TABLET PO SCH (22:06)
[2022-03-09] MEDS: DONEPEZIL HCL 5 MG TABLET (ARICEPT) PO SCH (22:07)
[2022-03-10] VITALS: BP_SYST 110
[2022-03-10] MEDS: NORMAL SALINE 5 ML DISP.SYRIN IVF SCH ×3 (05:36→21:46)
[2022-03-10] MEDS: INSULIN REGULAR, HUMAN 100 UNITS/ML, 3 ML VIAL (humuLIN R) SUBCUT PRN ×4 (05:42→21:50)
[2022-03-10] MEDS: metroNIDAZOLE 250 mg/NS 50 ML IV SCH ×3 (05:52→21:44)
[2022-03-10 08:00] VITALS: BP_SYST 136
[2022-03-10] MEDS: mycophenolate mofetiL 250 MG CAPSULE PO SCH ×2 (09:09→21:42)
[2022-03-10] MEDS: ASPIRIN 81 MG TAB.CHEW PO SCH (09:09)
[2022-03-10] MEDS: TACROLIMUS ANHYDROUS 1 MG CAPSULE (PROGRAF) PO SCH (09:09)
[2022-03-10] MEDS: amLODIPine BESYLATE 10 MG TABLET PO SCH (09:09)
[2022-03-10] MEDS: predniSONE 5 MG TABLET PO SCH (09:09)
[2022-03-10] MEDS: CLOPIDOGREL BISULFATE 75 MG TABLET PO SCH (09:10)
[2022-03-10] MEDS: CARVEDILOL 6.25 MG TABLET (COREG) PO SCH (09:20)
[2022-03-10] MEDS: CEFEPIME 2 GM in NS 100 ML IV SCH (12:37)
[2022-03-10 15:08] VITALS: BP_SYST 142
[2022-03-10 18:16] VITALS: BP_SYST 96
[2022-03-10 20:00] VITALS: BP_SYST 142
[2022-03-10] MEDS ORDERED: INSULIN GLARGINE 100 UNITS/ML, 10 ML VIAL SUBCUT SCH (21:00)
[2022-03-10] MEDS: DONEPEZIL HCL 5 MG TABLET (ARICEPT) PO SCH (21:43)
[2022-03-10] MEDS: MIRTAZAPINE 15 MG TABLET PO SCH (21:44)
[2022-03-11 00:12] VITALS: BP_SYST 128
[2022-03-11] MEDS: NORMAL SALINE 5 ML DISP.SYRIN IVF SCH ×3 (05:34→21:42)
[2022-03-11] MEDS: metroNIDAZOLE 250 mg/NS 50 ML IV SCH ×3 (05:34→21:40)
[2022-03-11] MEDS: INSULIN REGULAR, HUMAN 100 UNITS/ML, 3 ML VIAL (humuLIN R) SUBCUT PRN ×4 (05:36→21:47)
[2022-03-11 07:39] LABS: BASOPHILS % (AUTO) 0.3 % (0.0-2.0); EOSINOPHILS # (AUTO) 0.3 K/uL (0.0-0.4); HEMATOCRIT 30.4 % (36-48); LYMPHOCYTES # (AUTO) 3.1 K/uL (1.0-5.5); LYMPHOCYTES % (AUTO) 21.5 % (20.5-51.5); MEAN CORPUSCULAR VOLUME 94 fL (79.0-98.0); MONOCYTES # (AUTO) 1.3 K/uL (0.0-1.0); MONOCYTES % (AUTO) 8.7 % (1.7-9.3); NEUTROPHILS # (AUTO) 9.8 K/uL (1.8-7.7); NEUTROPHILS % (AUTO) 67.5 % (40.0-70.0); PLATELET COUNT (AUTO) 397 K/uL (130-430); RED BLOOD CELL COUNT(AUTO) 3.25 MIL/uL (4.2-6.2); RED CELL DISTRIBUTION WIDTH 17.7 % (9.0-15.0); WHITE BLOOD COUNT (AUTO) 14.6 K/uL (4.8-10.8)
[2022-03-11 08:00] VITALS: BP_SYST 103
[2022-03-11] MEDS: mycophenolate mofetiL 250 MG CAPSULE PO SCH ×2 (08:36→21:32)
[2022-03-11] MEDS: TACROLIMUS ANHYDROUS 1 MG CAPSULE (PROGRAF) PO SCH (08:37)
[2022-03-11] MEDS: ASPIRIN 81 MG TAB.CHEW PO SCH (08:37)
[2022-03-11] MEDS: CLOPIDOGREL BISULFATE 75 MG TABLET PO SCH (08:37)
[2022-03-11] MEDS: CARVEDILOL 6.25 MG TABLET (COREG) PO SCH (08:38)
[2022-03-11] MEDS: amLODIPine BESYLATE 10 MG TABLET PO SCH (08:39)
[2022-03-11] MEDS: predniSONE 5 MG TABLET PO SCH (08:40)
[2022-03-11 09:03] LABS: CALCIUM 10.1 mg/dL (8.4-11.0); CREATININE 5.7 mg/dL (0.55-1.30); PHOSPHORUS 3.1 mg/dL (2.7-4.5)
[2022-03-11 11:07] LABS: ERYTHROCYTE SEDIMENTATION RATE 89 MM/HR (0-20)
[2022-03-11] MEDS: CEFEPIME 2 GM in NS 100 ML IV SCH (11:57)
[2022-03-11] MEDS: FLUCONAZOLE 100 mg/ NS 50 ML IV SCH (13:02)
[2022-03-11 13:04] VITALS: BP_SYST 117
[2022-03-11 16:00] VITALS: BP_SYST 117
[2022-03-11 19:24] LABS: CALCIUM 10.7 mg/dL (8.4-11.0); CREATININE 6.07 mg/dL (0.55-1.30)
[2022-03-11 20:00] VITALS: BP_SYST 121
[2022-03-11] MEDS ORDERED: INSULIN GLARGINE 100 UNITS/ML, 10 ML VIAL SUBCUT SCH (21:00)
[2022-03-11] MEDS: DONEPEZIL HCL 5 MG TABLET (ARICEPT) PO SCH (21:39)
[2022-03-11] MEDS: MIRTAZAPINE 15 MG TABLET PO SCH (21:40)
[2022-03-11] MEDS: INSULIN GLARGINE 100 UNITS/ML, 10 ML VIAL SUBCUT SCH (21:43)
[2022-03-12] VITALS (7 sets, daily range): BP systolic 100–187
[2022-03-12] MEDS: NORMAL SALINE 5 ML DISP.SYRIN IVF SCH ×3 (07:01→21:37)
[2022-03-12] MEDS: metroNIDAZOLE 250 mg/NS 50 ML IV SCH ×3 (07:02→21:37)
[2022-03-12 07:48] LABS: BASOPHILS # (AUTO) 0.1 K/uL (0.0-0.2); BASOPHILS % (AUTO) 0.4 % (0.0-2.0); EOSINOPHILS # (AUTO) 0.3 K/uL (0.0-0.4); HEMATOCRIT 32.5 % (36-48); LYMPHOCYTES # (AUTO) 2.4 K/uL (1.0-5.5); LYMPHOCYTES % (AUTO) 16.3 % (20.5-51.5); MEAN CORPUSCULAR VOLUME 93 fL (79.0-98.0); MONOCYTES % (AUTO) 6.8 % (1.7-9.3); NEUTROPHILS % (AUTO) 74.5 % (40.0-70.0); PLATELET COUNT (AUTO) 461 K/uL (130-430); RED BLOOD CELL COUNT(AUTO) 3.49 MIL/uL (4.2-6.2); RED CELL DISTRIBUTION WIDTH 17.8 % (9.0-15.0); WHITE BLOOD COUNT (AUTO) 14.7 K/uL (4.8-10.8)
[2022-03-12 08:17] LABS: C-REACTIVE PROTEIN QUANT 5.4 mg/dL (0-0.5); CREATININE 6.1 mg/dL (0.55-1.30); PHOSPHORUS 3.6 mg/dL (2.7-4.5)
[2022-03-12] MEDS: CLOPIDOGREL BISULFATE 75 MG TABLET PO SCH (09:53)
[2022-03-12] MEDS: amLODIPine BESYLATE 10 MG TABLET PO SCH (09:54)
[2022-03-12] MEDS: ASPIRIN 81 MG TAB.CHEW PO SCH (09:54)
[2022-03-12] MEDS: INSULIN GLARGINE 100 UNITS/ML, 10 ML VIAL SUBCUT SCH (11:41)
[2022-03-12 11:44] LABS: ERYTHROCYTE SEDIMENTATION RATE 98 MM/HR (0-20)
[2022-03-12] MEDS: CARVEDILOL 6.25 MG TABLET (COREG) PO SCH (11:54)
[2022-03-12] MEDS: CEFEPIME 2 GM in NS 100 ML IV SCH (12:52)
[2022-03-12] MEDS: FLUCONAZOLE 100 mg/ NS 50 ML IV SCH (15:27)
[2022-03-12] MEDS: LORazepam 2 MG/ML VIAL IVP PRN (18:14)
[2022-03-12] MEDS: INSULIN REGULAR, HUMAN 100 UNITS/ML, 3 ML VIAL (humuLIN R) SUBCUT PRN ×2 (18:19→21:55)
[2022-03-12] MEDS: DONEPEZIL HCL 5 MG TABLET (ARICEPT) PO SCH (21:36)
[2022-03-12] MEDS: MIRTAZAPINE 15 MG TABLET PO SCH (21:36)
[2022-03-13] VITALS: BP_SYST 142
[2022-03-13] MEDS: metroNIDAZOLE 250 mg/NS 50 ML IV SCH ×3 (05:19→22:10)
[2022-03-13] MEDS: NORMAL SALINE 5 ML DISP.SYRIN IVF SCH ×3 (05:20→22:12)
[2022-03-13 06:06] LABS: HSV 2 IgG, TYPE SPECIFIC <0.91 index (0.00-0.90)
[2022-03-13] MEDS: INSULIN REGULAR, HUMAN 100 UNITS/ML, 3 ML VIAL (humuLIN R) SUBCUT PRN ×3 (06:07→22:24)
[2022-03-13 08:27] VITALS: BP_SYST 132
[2022-03-13 09:09] LABS: BASOPHILS # (AUTO) 0.1 K/uL (0.0-0.2); BASOPHILS % (AUTO) 0.4 % (0.0-2.0); EOSINOPHILS # (AUTO) 0.4 K/uL (0.0-0.4); EOSINOPHILS % (AUTO) 1.7 % (0.0-4.0); HEMATOCRIT 31.4 % (36-48); LYMPHOCYTES # (AUTO) 2.6 K/uL (1.0-5.5); LYMPHOCYTES % (AUTO) 12.5 % (20.5-51.5); MEAN CORPUSCULAR VOLUME 93 fL (79.0-98.0); MONOCYTES # (AUTO) 1.5 K/uL (0.0-1.0); NEUTROPHILS # (AUTO) 16.6 K/uL (1.8-7.7); NEUTROPHILS % (AUTO) 78.4 % (40.0-70.0); PLATELET COUNT (AUTO) 396 K/uL (130-430); RED BLOOD CELL COUNT(AUTO) 3.38 MIL/uL (4.2-6.2); RED CELL DISTRIBUTION WIDTH 18.1 % (9.0-15.0); WHITE BLOOD COUNT (AUTO) 21.2 K/uL (4.8-10.8)
[2022-03-13] MEDS: CARVEDILOL 6.25 MG TABLET (COREG) PO SCH (09:17)
[2022-03-13] MEDS: amLODIPine BESYLATE 10 MG TABLET PO SCH (09:18)
[2022-03-13] MEDS: CLOPIDOGREL BISULFATE 75 MG TABLET PO SCH (09:18)
[2022-03-13] MEDS: ASPIRIN 81 MG TAB.CHEW PO SCH (09:18)
[2022-03-13] MEDS: INSULIN GLARGINE 100 UNITS/ML, 10 ML VIAL SUBCUT SCH (09:21)
[2022-03-13 09:24] LABS: ALBUMIN 2.5 g/dL (3.4-4.8); C-REACTIVE PROTEIN QUANT 11.4 mg/dL (0-0.5); CREATININE 4.8 mg/dL (0.55-1.30); PHOSPHORUS 2.6 mg/dL (2.7-4.5); TOTAL BILIRUBIN 0.3 mg/dL (0.0-1.0)
[2022-03-13] MEDS ORDERED: NA PHOS 15 MM in NS 250 ML IV ONE (11:30)
[2022-03-13 12:25] VITALS: BP_SYST 109
[2022-03-13] MEDS: CEFEPIME 2 GM in NS 100 ML IV SCH (15:04)
[2022-03-13] MEDS: FLUCONAZOLE 100 mg/ NS 50 ML IV SCH (15:05)
[2022-03-13 16:10] VITALS: BP_SYST 143
[2022-03-13] MEDS: LORazepam 2 MG/ML VIAL IVP PRN (16:37)
[2022-03-13 20:00] VITALS: BP_SYST 116
[2022-03-13] MEDS: DONEPEZIL HCL 5 MG TABLET (ARICEPT) PO SCH (22:11)
[2022-03-13] MEDS: MIRTAZAPINE 15 MG TABLET PO SCH (22:11)
[2022-03-14 01:06] VITALS: BP_SYST 120
[2022-03-14 04:15] VITALS: BP_SYST 113
[2022-03-14] MEDS: metroNIDAZOLE 250 mg/NS 50 ML IV SCH ×3 (05:38→21:27)
[2022-03-14] MEDS: NORMAL SALINE 5 ML DISP.SYRIN IVF SCH ×3 (05:40→21:27)
[2022-03-14] MEDS: INSULIN REGULAR, HUMAN 100 UNITS/ML, 3 ML VIAL (humuLIN R) SUBCUT PRN ×2 (05:41→17:15)
[2022-03-14 08:00] VITALS: BP_SYST 116
[2022-03-14] MEDS ORDERED: COMMUNICATION ORDER XX ONE (08:15)
[2022-03-14] MEDS ORDERED: BISACODYL 5 MG TABLET.DR (DULCOLAX) GT PRN (08:17)
[2022-03-14] MEDS ORDERED: HYDROcodone/ACETAMIN 10-325 MG TAB GT PRN (08:19)
[2022-03-14] MEDS ORDERED: HYDROcodone/ACETAMIN 5-325 MG TAB (NORCO/ VICODIN) GT PRN (08:19)
[2022-03-14] MEDS ORDERED: ACETAMINOPHEN 650 MG/20.3 ML UDC GT PRN (08:30)
[2022-03-14] MEDS ORDERED: DOCUSATE SODIUM 100 MG/10 ML UDC GT PRN (08:30)
[2022-03-14 09:00] LABS: C-REACTIVE PROTEIN QUANT 10.5 mg/dL (0-0.5); CALCIUM 9.6 mg/dL (8.4-11.0); CREATININE 3.56 mg/dL (0.55-1.30); PHOSPHORUS 3.4 mg/dL (2.7-4.5)
[2022-03-14] MEDS: CARVEDILOL 6.25 MG TABLET (COREG) GT SCH (09:10)
[2022-03-14] MEDS: CLOPIDOGREL BISULFATE 75 MG TABLET GT SCH (09:10)
[2022-03-14] MEDS: amLODIPine BESYLATE 10 MG TABLET GT SCH (09:11)
[2022-03-14] MEDS: ASPIRIN 81 MG TAB.CHEW GT SCH (09:11)
[2022-03-14] MEDS: INSULIN GLARGINE 100 UNITS/ML, 10 ML VIAL SUBCUT SCH (09:13)
[2022-03-14 11:15] VITALS: BP_SYST 115
[2022-03-14] MEDS: CEFEPIME 2 GM in NS 100 ML IV SCH (11:30)
[2022-03-14 12:06] LABS: HEMATOCRIT 28.1 % (36-48); MEAN CORPUSCULAR VOLUME 93 fL (79.0-98.0); PLATELET COUNT (AUTO) 295 K/uL (130-430); RED BLOOD CELL COUNT(AUTO) 3.01 MIL/uL (4.2-6.2); RED CELL DISTRIBUTION WIDTH 18.2 % (9.0-15.0); WHITE BLOOD COUNT (AUTO) 12.6 K/uL (4.8-10.8)
[2022-03-14] MEDS: FLUCONAZOLE 100 mg/ NS 50 ML IV SCH (12:48)
[2022-03-14] MEDS: LORazepam 1 MG TABLET GT PRN (14:27)
[2022-03-14 15:00] LABS: BAND % (MANUAL) 2 % (0-6); BASOPHILS % (MANUAL) 0 % (0-2); EOSINOPHILS % (MANUAL) 4 % (0-7); LYMPHOCYTES % (MANUAL) 30 % (20-46); MONOCYTES % (MANUAL) 5 % (0-11)
[2022-03-14 15:02] LABS: ERYTHROCYTE SEDIMENTATION RATE 101 MM/HR (0-20)
[2022-03-14 16:15] VITALS: BP_SYST 127
[2022-03-14 20:00] VITALS: BP_SYST 117
[2022-03-14] MEDS: DONEPEZIL HCL 5 MG TABLET (ARICEPT) GT SCH (21:26)
[2022-03-14] MEDS: MIRTAZAPINE 15 MG TABLET GT SCH (21:26)
[2022-03-15] VITALS: BP_SYST 130
[2022-03-15] MEDS: NORMAL SALINE 5 ML DISP.SYRIN IVF SCH ×3 (05:23→21:38)
[2022-03-15] MEDS: INSULIN REGULAR, HUMAN 100 UNITS/ML, 3 ML VIAL (humuLIN R) SUBCUT PRN ×2 (05:29→21:43)
[2022-03-15] MEDS ORDERED: metroNIDAZOLE 250 mg/NS 50 ML IV ONE (08:00)
[2022-03-15] MEDS: CLOPIDOGREL BISULFATE 75 MG TABLET GT SCH (08:56)
[2022-03-15] MEDS: INSULIN GLARGINE 100 UNITS/ML, 10 ML VIAL SUBCUT SCH (09:01)
[2022-03-15] MEDS: ASPIRIN 81 MG TAB.CHEW GT SCH (09:02)
[2022-03-15] MEDS: amLODIPine BESYLATE 10 MG TABLET GT SCH (09:02)
[2022-03-15] MEDS: CARVEDILOL 6.25 MG TABLET (COREG) GT SCH (09:04)
[2022-03-15 09:46] LABS: C-REACTIVE PROTEIN QUANT 5.9 mg/dL (0-0.5); CALCIUM 9.7 mg/dL (8.4-11.0); CREATININE 4.89 mg/dL (0.55-1.30); PHOSPHORUS 4.8 mg/dL (2.7-4.5)
[2022-03-15 11:07] LABS: ERYTHROCYTE SEDIMENTATION RATE 110 MM/HR (0-20)
[2022-03-15 12:00] VITALS: BP_SYST 131
[2022-03-15] MEDS: CEFEPIME 2 GM in NS 100 ML IV SCH (12:33)
[2022-03-15 13:44] LABS: BASOPHILS # (AUTO) 0.1 K/uL (0.0-0.2); EOSINOPHILS # (AUTO) 0.6 K/uL (0.0-0.4); EOSINOPHILS % (AUTO) 4.6 % (0.0-4.0); HEMATOCRIT 26.5 % (36-48); LYMPHOCYTES # (AUTO) 2.4 K/uL (1.0-5.5); LYMPHOCYTES % (AUTO) 19.4 % (20.5-51.5); MEAN CORPUSCULAR VOLUME 93 fL (79.0-98.0); MONOCYTES # (AUTO) 1.2 K/uL (0.0-1.0); MONOCYTES % (AUTO) 9.9 % (1.7-9.3); NEUTROPHILS % (AUTO) 65.1 % (40.0-70.0); PLATELET COUNT (AUTO) 286 K/uL (130-430); RED BLOOD CELL COUNT(AUTO) 2.84 MIL/uL (4.2-6.2); RED CELL DISTRIBUTION WIDTH 18.3 % (9.0-15.0); WHITE BLOOD COUNT (AUTO) 12.3 K/uL (4.8-10.8)
[2022-03-15] MEDS: FLUCONAZOLE 100 mg/ NS 50 ML IV SCH (13:55)
[2022-03-15] MEDS: metroNIDAZOLE 250 mg/NS 50 ML IV SCH ×2 (15:04→21:37)
[2022-03-15 16:00] VITALS: BP_SYST 124
[2022-03-15] MEDS: LORazepam 1 MG TABLET GT PRN (17:40)
[2022-03-15 20:00] VITALS: BP_SYST 106
[2022-03-15] MEDS: DONEPEZIL HCL 5 MG TABLET (ARICEPT) GT SCH (21:33)
[2022-03-15] MEDS: MIRTAZAPINE 15 MG TABLET GT SCH (21:34)
[2022-03-16 02:05] VITALS: BP_SYST 124
[2022-03-16] MEDS: metroNIDAZOLE 250 mg/NS 50 ML IV SCH ×3 (06:33→22:04)
[2022-03-16] MEDS: NORMAL SALINE 5 ML DISP.SYRIN IVF SCH ×3 (06:34→22:05)
[2022-03-16] MEDS: INSULIN REGULAR, HUMAN 100 UNITS/ML, 3 ML VIAL (humuLIN R) SUBCUT PRN ×3 (06:41→22:16)
[2022-03-16 08:00] VITALS: BP_SYST 131
[2022-03-16 08:15] LABS: BASOPHILS # (AUTO) 0.2 K/uL (0.0-0.2); EOSINOPHILS # (AUTO) 0.2 K/uL (0.0-0.4); EOSINOPHILS % (AUTO) 1.1 % (0.0-4.0); HEMATOCRIT 28.7 % (36-48); LYMPHOCYTES # (AUTO) 1.7 K/uL (1.0-5.5); LYMPHOCYTES % (AUTO) 11.2 % (20.5-51.5); MEAN CORPUSCULAR VOLUME 94 fL (79.0-98.0); MONOCYTES # (AUTO) 0.9 K/uL (0.0-1.0); MONOCYTES % (AUTO) 5.9 % (1.7-9.3); NEUTROPHILS # (AUTO) 12.1 K/uL (1.8-7.7); NEUTROPHILS % (AUTO) 80.8 % (40.0-70.0); PLATELET COUNT (AUTO) 326 K/uL (130-430); RED BLOOD CELL COUNT(AUTO) 3.07 MIL/uL (4.2-6.2); RED CELL DISTRIBUTION WIDTH 18.2 % (9.0-15.0)
[2022-03-16 08:50] LABS: ALBUMIN 2.8 g/dL (3.4-4.8); C-REACTIVE PROTEIN QUANT 5.2 mg/dL (0-0.5); CALCIUM 9.3 mg/dL (8.4-11.0); CREATININE 2.99 mg/dL (0.55-1.30); PHOSPHORUS 4.4 mg/dL (2.7-4.5); TOTAL BILIRUBIN 0.3 mg/dL (0.0-1.0)
[2022-03-16] MEDS: ASPIRIN 81 MG TAB.CHEW GT SCH (10:30)
[2022-03-16] MEDS: CLOPIDOGREL BISULFATE 75 MG TABLET GT SCH (10:30)
[2022-03-16] MEDS: amLODIPine BESYLATE 10 MG TABLET GT SCH (10:31)
[2022-03-16] MEDS: CARVEDILOL 6.25 MG TABLET (COREG) GT SCH (10:32)
[2022-03-16] MEDS: INSULIN GLARGINE 100 UNITS/ML, 10 ML VIAL SUBCUT SCH (10:34)
[2022-03-16 11:44] VITALS: BP_SYST 129
[2022-03-16] MEDS: FLUCONAZOLE 100 mg/ NS 50 ML IV SCH (13:00)
[2022-03-16 13:56] LABS: ERYTHROCYTE SEDIMENTATION RATE 105 MM/HR (0-20)
[2022-03-16] MEDS: CEFEPIME 2 GM in NS 100 ML IV SCH (14:47)
[2022-03-16 16:14] VITALS: BP_SYST 121
[2022-03-16 20:09] VITALS: BP_SYST 127
[2022-03-16] MEDS: DONEPEZIL HCL 5 MG TABLET (ARICEPT) GT SCH (22:00)
[2022-03-16] MEDS: MIRTAZAPINE 15 MG TABLET GT SCH (22:01)
[2022-03-17 00:30] VITALS: BP_SYST 144
[2022-03-17 05:00] VITALS: BP_SYST 127
[2022-03-17] MEDS: NORMAL SALINE 5 ML DISP.SYRIN IVF SCH ×3 (06:28→21:35)
[2022-03-17] MEDS: INSULIN REGULAR, HUMAN 100 UNITS/ML, 3 ML VIAL (humuLIN R) SUBCUT PRN ×3 (06:34→21:39)
[2022-03-17] MEDS: metroNIDAZOLE 250 mg/NS 50 ML IV SCH (06:38)
[2022-03-17 07:37] LABS: BASOPHILS # (AUTO) 0.1 K/uL (0.0-0.2); BASOPHILS % (AUTO) 0.5 % (0.0-2.0); EOSINOPHILS # (AUTO) 0.5 K/uL (0.0-0.4); EOSINOPHILS % (AUTO) 3.7 % (0.0-4.0); HEMATOCRIT 29.2 % (36-48); LYMPHOCYTES % (AUTO) 24.1 % (20.5-51.5); MEAN CORPUSCULAR VOLUME 94 fL (79.0-98.0); MONOCYTES # (AUTO) 1.1 K/uL (0.0-1.0); MONOCYTES % (AUTO) 8.5 % (1.7-9.3); NEUTROPHILS % (AUTO) 63.2 % (40.0-70.0); PLATELET COUNT (AUTO) 312 K/uL (130-430); RED BLOOD CELL COUNT(AUTO) 3.12 MIL/uL (4.2-6.2); RED CELL DISTRIBUTION WIDTH 17.6 % (9.0-15.0); WHITE BLOOD COUNT (AUTO) 12.6 K/uL (4.8-10.8)
[2022-03-17 07:53] LABS: C-REACTIVE PROTEIN QUANT 5.5 mg/dL (0-0.5); CALCIUM 9.8 mg/dL (8.4-11.0); CREATININE 4.66 mg/dL (0.55-1.30); PHOSPHORUS 6.3 mg/dL (2.7-4.5)
[2022-03-17 08:00] VITALS: BP_SYST 112
[2022-03-17] MEDS: amLODIPine BESYLATE 10 MG TABLET GT SCH (09:00)
[2022-03-17] MEDS: CLOPIDOGREL BISULFATE 75 MG TABLET GT SCH (09:00)
[2022-03-17 09:05] LABS: ERYTHROCYTE SEDIMENTATION RATE 110 MM/HR (0-20)
[2022-03-17] MEDS: ASPIRIN 81 MG TAB.CHEW GT SCH (09:14)
[2022-03-17] MEDS: CARVEDILOL 6.25 MG TABLET (COREG) GT SCH (09:15)
[2022-03-17] MEDS: INSULIN GLARGINE 100 UNITS/ML, 10 ML VIAL SUBCUT SCH (09:19)
[2022-03-17] MEDS ORDERED: ALBUMIN HUMAN 25% 100 ML IV ONE ×2 (09:45→11:00)
[2022-03-17 11:35] VITALS: BP_SYST 103
[2022-03-17] MEDS ORDERED: ACYCLOVIR IV 500 MG in NS 100 ML IV ONE (12:00)
[2022-03-17] MEDS: CEFEPIME 2 GM in NS 100 ML IV SCH (12:08)
[2022-03-17 14:06] LABS: BILIRUBIN,URINE NEGATIVE (NEGATIVE); BLOOD, URINE 1+ (NEGATIVE); CLARITY/URINE CLOUDY (CLEAR); COLOR,URINE YELLOW (YELLOW); GLUCOSE,URINE NEGATIVE (NEGATIVE); KETONES,URINE TRACE (NEGATIVE); LEUKOCYTE ESTERASE ,URINE 2+ (NEGATIVE); NITRITE, URINE NEGATIVE (NEGATIVE); PROTEIN URINE 3+ (NEGATIVE); UROBILINOGEN,URINE 0.2 (0.2-1.0)
[2022-03-17 14:22] LABS: BACTERIA,URINE MANY /HPF (None Seen); MUCUS,URINE 1+ /LPF (None Seen); RBC,URINE 0-3 /HPF (0-3)
[2022-03-17 18:36] VITALS: BP_SYST 109
[2022-03-17 20:00] VITALS: BP_SYST 129
[2022-03-17] MEDS: DONEPEZIL HCL 5 MG TABLET (ARICEPT) GT SCH (21:15)
[2022-03-17] MEDS: MIRTAZAPINE 15 MG TABLET GT SCH (21:16)
[2022-03-18 00:28] VITALS: BP_SYST 129
[2022-03-18] MEDS: NORMAL SALINE 5 ML DISP.SYRIN IVF SCH ×3 (06:31→21:14)
[2022-03-18] MEDS: INSULIN REGULAR, HUMAN 100 UNITS/ML, 3 ML VIAL (humuLIN R) SUBCUT PRN ×3 (06:33→21:03)
[2022-03-18 08:00] VITALS: BP_SYST 121
[2022-03-18] MEDS: amLODIPine BESYLATE 10 MG TABLET GT SCH (09:00)
[2022-03-18] MEDS: ASPIRIN 81 MG TAB.CHEW GT SCH (09:13)
[2022-03-18] MEDS: CLOPIDOGREL BISULFATE 75 MG TABLET GT SCH (09:13)
[2022-03-18 09:14] LABS: BASOPHILS # (AUTO) 0.1 K/uL (0.0-0.2); BASOPHILS % (AUTO) 0.7 % (0.0-2.0); EOSINOPHILS # (AUTO) 0.3 K/uL (0.0-0.4); EOSINOPHILS % (AUTO) 2.2 % (0.0-4.0); HEMATOCRIT 29.3 % (36-48); HEMOGLOBIN 9.4 g/dL (12.0-16.0); LYMPHOCYTES # (AUTO) 2.3 K/uL (1.0-5.5); LYMPHOCYTES % (AUTO) 15.9 % (20.5-51.5); MEAN CORPUSCULAR HEMOGLOBIN 30 pg (27-31); MEAN CORPUSCULAR HGB CONC 32 % (32-36); MEAN CORPUSCULAR VOLUME 94 fL (79.0-98.0); MONOCYTES # (AUTO) 1.4 K/uL (0.0-1.0); MONOCYTES % (AUTO) 9.6 % (1.7-9.3); NEUTROPHILS # (AUTO) 10.4 K/uL (1.8-7.7); NEUTROPHILS % (AUTO) 71.6 % (40.0-70.0); PLATELET COUNT (AUTO) 257 K/uL (130-430); RED BLOOD CELL COUNT(AUTO) 3.13 MIL/uL (4.2-6.2); RED CELL DISTRIBUTION WIDTH 18.4 % (9.0-15.0); WHITE BLOOD COUNT (AUTO) 14.5 K/uL (4.8-10.8)
[2022-03-18] MEDS: CARVEDILOL 6.25 MG TABLET (COREG) GT SCH (09:14)
[2022-03-18] MEDS: INSULIN GLARGINE 100 UNITS/ML, 10 ML VIAL SUBCUT SCH (09:17)
[2022-03-18 09:42] LABS: C-REACTIVE PROTEIN QUANT 4.7 mg/dL (0-0.5); CALCIUM 9.7 mg/dL (8.4-11.0); CREATININE 3.73 mg/dL (0.55-1.30)
[2022-03-18 11:17] LABS: ERYTHROCYTE SEDIMENTATION RATE 100 MM/HR (0-20)
[2022-03-18 16:00] VITALS: BP_SYST 143
[2022-03-18] MEDS: ACYCLOVIR IV 500 MG in NS 100 ML IV SCH (17:50)
[2022-03-18 20:00] VITALS: BP_SYST 128
[2022-03-18] MEDS: CEFEPIME 2 GM in NS 100 ML IV SCH (20:46)
[2022-03-18] MEDS: MIRTAZAPINE 15 MG TABLET GT SCH (21:13)
[2022-03-18] MEDS: DONEPEZIL HCL 5 MG TABLET (ARICEPT) GT SCH (21:13)
[2022-03-19 01:42] VITALS: BP_SYST 164
[2022-03-19] MEDS: NORMAL SALINE 5 ML DISP.SYRIN IVF SCH ×3 (05:46→23:07)
[2022-03-19] MEDS: INSULIN REGULAR, HUMAN 100 UNITS/ML, 3 ML VIAL (humuLIN R) SUBCUT PRN ×4 (05:50→23:13)
[2022-03-19 07:17] LABS: BASOPHILS # (AUTO) 0.1 K/uL (0.0-0.2); BASOPHILS % (AUTO) 0.7 % (0.0-2.0); EOSINOPHILS # (AUTO) 0.5 K/uL (0.0-0.4); EOSINOPHILS % (AUTO) 3.8 % (0.0-4.0); HEMATOCRIT 26.1 % (36-48); HEMOGLOBIN 8.4 g/dL (12.0-16.0); LYMPHOCYTES # (AUTO) 3.1 K/uL (1.0-5.5); MEAN CORPUSCULAR HEMOGLOBIN 30 pg (27-31); MEAN CORPUSCULAR HGB CONC 32 % (32-36); MEAN CORPUSCULAR VOLUME 93 fL (79.0-98.0); MONOCYTES # (AUTO) 1.4 K/uL (0.0-1.0); MONOCYTES % (AUTO) 10.4 % (1.7-9.3); NEUTROPHILS # (AUTO) 8.4 K/uL (1.8-7.7); NEUTROPHILS % (AUTO) 62.1 % (40.0-70.0); PLATELET COUNT (AUTO) 316 K/uL (130-430); RED BLOOD CELL COUNT(AUTO) 2.79 MIL/uL (4.2-6.2); WHITE BLOOD COUNT (AUTO) 13.5 K/uL (4.8-10.8)
[2022-03-19 07:56] LABS: C-REACTIVE PROTEIN QUANT 9.7 mg/dL (0-0.5); CALCIUM 9.7 mg/dL (8.4-11.0); CREATININE 2.94 mg/dL (0.55-1.30); PHOSPHORUS 4.4 mg/dL (2.7-4.5)
[2022-03-19] MEDS: amLODIPine BESYLATE 10 MG TABLET GT SCH (10:00)
[2022-03-19] MEDS: CLOPIDOGREL BISULFATE 75 MG TABLET GT SCH (10:00)
[2022-03-19] MEDS: CARVEDILOL 6.25 MG TABLET (COREG) GT SCH (10:01)
[2022-03-19] MEDS: ASPIRIN 81 MG TAB.CHEW GT SCH (10:01)
[2022-03-19] MEDS: INSULIN GLARGINE 100 UNITS/ML, 10 ML VIAL SUBCUT SCH (10:05)
[2022-03-19 12:08] LABS: ERYTHROCYTE SEDIMENTATION RATE 117 MM/HR (0-20)
[2022-03-19] MEDS: CEFEPIME 2 GM in NS 100 ML IV SCH (13:00)
[2022-03-19 13:15] VITALS: BP_SYST 108
[2022-03-19] MEDS: ACYCLOVIR IV 500 MG in NS 100 ML IV SCH (14:25)
[2022-03-19 18:34] VITALS: BP_SYST 95
[2022-03-19 20:00] VITALS: BP_SYST 106
[2022-03-19] MEDS: DONEPEZIL HCL 5 MG TABLET (ARICEPT) GT SCH (23:06)
[2022-03-19] MEDS: MIRTAZAPINE 15 MG TABLET GT SCH (23:06)
[2022-03-20 00:17] VITALS: BP_SYST 122
[2022-03-20 07:03] LABS: BASOPHILS % (AUTO) 0.4 % (0.0-2.0); EOSINOPHILS # (AUTO) 0.3 K/uL (0.0-0.4); EOSINOPHILS % (AUTO) 1.9 % (0.0-4.0); HEMATOCRIT 26.1 % (36-48); HEMOGLOBIN 8.6 g/dL (12.0-16.0); LYMPHOCYTES # (AUTO) 1.8 K/uL (1.0-5.5); LYMPHOCYTES % (AUTO) 13.2 % (20.5-51.5); MEAN CORPUSCULAR HEMOGLOBIN 30 pg (27-31); MEAN CORPUSCULAR HGB CONC 33 % (32-36); MEAN CORPUSCULAR VOLUME 93 fL (79.0-98.0); MONOCYTES # (AUTO) 1.3 K/uL (0.0-1.0); MONOCYTES % (AUTO) 9.6 % (1.7-9.3); NEUTROPHILS # (AUTO) 10.3 K/uL (1.8-7.7); NEUTROPHILS % (AUTO) 74.9 % (40.0-70.0); PLATELET COUNT (AUTO) 303 K/uL (130-430); RED BLOOD CELL COUNT(AUTO) 2.82 MIL/uL (4.2-6.2); RED CELL DISTRIBUTION WIDTH 17.5 % (9.0-15.0); WHITE BLOOD COUNT (AUTO) 13.7 K/uL (4.8-10.8)
[2022-03-20 08:00] VITALS: BP_SYST 100
[2022-03-20 08:01] LABS: ALBUMIN 2.4 g/dL (3.4-4.8); C-REACTIVE PROTEIN QUANT 5.7 mg/dL (0-0.5); CREATININE 4.55 mg/dL (0.55-1.30); PHOSPHORUS 5.8 mg/dL (2.7-4.5); TOTAL BILIRUBIN 0.4 mg/dL (0.0-1.0)
[2022-03-20] MEDS: amLODIPine BESYLATE 10 MG TABLET GT SCH (09:00)
[2022-03-20] MEDS: CLOPIDOGREL BISULFATE 75 MG TABLET GT SCH (09:00)
[2022-03-20] MEDS: ASPIRIN 81 MG TAB.CHEW GT SCH (09:00)
[2022-03-20] MEDS: CARVEDILOL 6.25 MG TABLET (COREG) GT SCH (09:00)
[2022-03-20 09:52] LABS: ERYTHROCYTE SEDIMENTATION RATE 116 MM/HR (0-20)
[2022-03-20] MEDS: INSULIN GLARGINE 100 UNITS/ML, 10 ML VIAL SUBCUT SCH (10:27)
[2022-03-20] MEDS: ACYCLOVIR IV 500 MG in NS 100 ML IV SCH (10:30)
[2022-03-20] MEDS: INSULIN REGULAR, HUMAN 100 UNITS/ML, 3 ML VIAL (humuLIN R) SUBCUT PRN ×3 (11:26→22:04)
[2022-03-20 12:22] VITALS: BP_SYST 105
[2022-03-20] MEDS: NORMAL SALINE 5 ML DISP.SYRIN IVF SCH (14:33)
[2022-03-20 16:00] VITALS: BP_SYST 136
[2022-03-20 20:00] VITALS: BP_SYST 134
[2022-03-20] MEDS: DONEPEZIL HCL 5 MG TABLET (ARICEPT) GT SCH (21:10)
[2022-03-20] MEDS: MIRTAZAPINE 15 MG TABLET GT SCH (21:10)
[2022-03-21] MEDS: NORMAL SALINE 5 ML DISP.SYRIN IVF SCH ×4 (03:45→21:15)
[2022-03-21 03:55] VITALS: BP_SYST 109
[2022-03-21] MEDS: INSULIN REGULAR, HUMAN 100 UNITS/ML, 3 ML VIAL (humuLIN R) SUBCUT PRN ×4 (06:33→21:18)
[2022-03-21 06:43] LABS: BASOPHILS # (AUTO) 0.1 K/uL (0.0-0.2); BASOPHILS % (AUTO) 0.5 % (0.0-2.0); EOSINOPHILS # (AUTO) 0.1 K/uL (0.0-0.4); EOSINOPHILS % (AUTO) 0.5 % (0.0-4.0); HEMATOCRIT 27.1 % (36-48); HEMOGLOBIN 8.9 g/dL (12.0-16.0); LYMPHOCYTES % (AUTO) 13.5 % (20.5-51.5); MEAN CORPUSCULAR HEMOGLOBIN 30 pg (27-31); MEAN CORPUSCULAR HGB CONC 33 % (32-36); MEAN CORPUSCULAR VOLUME 92 fL (79.0-98.0); MONOCYTES # (AUTO) 1.4 K/uL (0.0-1.0); MONOCYTES % (AUTO) 9.8 % (1.7-9.3); NEUTROPHILS % (AUTO) 75.7 % (40.0-70.0); PLATELET COUNT (AUTO) 292 K/uL (130-430); RED BLOOD CELL COUNT(AUTO) 2.95 MIL/uL (4.2-6.2); RED CELL DISTRIBUTION WIDTH 17.7 % (9.0-15.0); WHITE BLOOD COUNT (AUTO) 14.6 K/uL (4.8-10.8)
[2022-03-21 07:27] VITALS: BP_SYST 134
[2022-03-21 07:48] LABS: C-REACTIVE PROTEIN QUANT 10.6 mg/dL (0-0.5); CALCIUM 9.9 mg/dL (8.4-11.0); CREATININE 3.71 mg/dL (0.55-1.30); PHOSPHORUS 3.5 mg/dL (2.7-4.5)
[2022-03-21] MEDS: ASPIRIN 81 MG TAB.CHEW GT SCH (09:17)
[2022-03-21 09:18] LABS: ERYTHROCYTE SEDIMENTATION RATE 114 MM/HR (0-20)
[2022-03-21] MEDS: CARVEDILOL 6.25 MG TABLET (COREG) GT SCH (09:18)
[2022-03-21] MEDS: CLOPIDOGREL BISULFATE 75 MG TABLET GT SCH (09:18)
[2022-03-21] MEDS: amLODIPine BESYLATE 10 MG TABLET GT SCH (09:19)
[2022-03-21] MEDS: ACYCLOVIR IV 500 MG in NS 100 ML IV SCH (09:28)
[2022-03-21] MEDS: INSULIN GLARGINE 100 UNITS/ML, 10 ML VIAL SUBCUT SCH (10:37)
[2022-03-21] MEDS ORDERED: SODIUM ZIRCONIUM CYCLOSILICATE 10 GM POWD.PACK PO ONE (13:15)
[2022-03-21 14:23] VITALS: BP_SYST 104
[2022-03-21 17:03] VITALS: BP_SYST 95
[2022-03-21 21:00] VITALS: BP_SYST 115
[2022-03-21] MEDS: MIRTAZAPINE 15 MG TABLET GT SCH (21:08)
[2022-03-21] MEDS: DONEPEZIL HCL 5 MG TABLET (ARICEPT) GT SCH (21:08)
[2022-03-22 00:39] VITALS: BP_SYST 92
[2022-03-22] MEDS: NORMAL SALINE 5 ML DISP.SYRIN IVF SCH ×3 (06:12→21:41)
[2022-03-22] MEDS: INSULIN REGULAR, HUMAN 100 UNITS/ML, 3 ML VIAL (humuLIN R) SUBCUT PRN ×4 (06:14→21:43)
[2022-03-22 07:12] LABS: BASOPHILS # (AUTO) 0.1 K/uL (0.0-0.2); BASOPHILS % (AUTO) 0.5 % (0.0-2.0); EOSINOPHILS # (AUTO) 0.3 K/uL (0.0-0.4); EOSINOPHILS % (AUTO) 2.1 % (0.0-4.0); HEMATOCRIT 26.9 % (36-48); HEMOGLOBIN 8.7 g/dL (12.0-16.0); LYMPHOCYTES # (AUTO) 2.8 K/uL (1.0-5.5); LYMPHOCYTES % (AUTO) 17.4 % (20.5-51.5); MEAN CORPUSCULAR HEMOGLOBIN 30 pg (27-31); MEAN CORPUSCULAR HGB CONC 32 % (32-36); MEAN CORPUSCULAR VOLUME 93 fL (79.0-98.0); MONOCYTES # (AUTO) 1.6 K/uL (0.0-1.0); NEUTROPHILS # (AUTO) 11.3 K/uL (1.8-7.7); PLATELET COUNT (AUTO) 316 K/uL (130-430); RED BLOOD CELL COUNT(AUTO) 2.91 MIL/uL (4.2-6.2); RED CELL DISTRIBUTION WIDTH 17.5 % (9.0-15.0); WHITE BLOOD COUNT (AUTO) 16.1 K/uL (4.8-10.8)
[2022-03-22 07:17] LABS: C-REACTIVE PROTEIN QUANT 11.2 mg/dL (0-0.5); CALCIUM 10.1 mg/dL (8.4-11.0); CREATININE 5.13 mg/dL (0.55-1.30); PHOSPHORUS 5.1 mg/dL (2.7-4.5)
[2022-03-22 07:35] VITALS: BP_SYST 126
[2022-03-22 08:23] LABS: ERYTHROCYTE SEDIMENTATION RATE 115 MM/HR (0-20)
[2022-03-22] MEDS: CLOPIDOGREL BISULFATE 75 MG TABLET GT SCH (08:47)
[2022-03-22] MEDS: CARVEDILOL 6.25 MG TABLET (COREG) GT SCH (08:47)
[2022-03-22] MEDS: ASPIRIN 81 MG TAB.CHEW GT SCH (08:47)
[2022-03-22] MEDS: amLODIPine BESYLATE 10 MG TABLET GT SCH (08:48)
[2022-03-22] MEDS: INSULIN GLARGINE 100 UNITS/ML, 10 ML VIAL SUBCUT SCH (08:50)
[2022-03-22] MEDS: ACYCLOVIR IV 500 MG in NS 100 ML IV SCH (09:16)
[2022-03-22 11:31] VITALS: BP_SYST 105
[2022-03-22 15:52] VITALS: BP_SYST 116
[2022-03-22] MEDS ORDERED: SODIUM ZIRCONIUM CYCLOSILICATE 10 GM POWD.PACK PO ONE (17:00)
[2022-03-22 20:21] VITALS: BP_SYST 119
[2022-03-22] MEDS: DONEPEZIL HCL 5 MG TABLET (ARICEPT) GT SCH (21:40)
[2022-03-22] MEDS: MIRTAZAPINE 15 MG TABLET GT SCH (21:40)
[2022-03-23 00:52] VITALS: BP_SYST 125
[2022-03-23] MEDS: NORMAL SALINE 5 ML DISP.SYRIN IVF SCH ×3 (06:20→22:17)
[2022-03-23 08:00] VITALS: BP_SYST 101
[2022-03-23 08:34] LABS: BASOPHILS % (AUTO) 0.3 % (0.0-2.0); EOSINOPHILS # (AUTO) 0.4 K/uL (0.0-0.4); EOSINOPHILS % (AUTO) 2.8 % (0.0-4.0); HEMATOCRIT 25.8 % (36-48); HEMOGLOBIN 8.3 g/dL (12.0-16.0); LYMPHOCYTES # (AUTO) 3.9 K/uL (1.0-5.5); LYMPHOCYTES % (AUTO) 28.3 % (20.5-51.5); MEAN CORPUSCULAR HEMOGLOBIN 30 pg (27-31); MEAN CORPUSCULAR HGB CONC 32 % (32-36); MEAN CORPUSCULAR VOLUME 94 fL (79.0-98.0); MONOCYTES # (AUTO) 1.3 K/uL (0.0-1.0); MONOCYTES % (AUTO) 9.2 % (1.7-9.3); NEUTROPHILS # (AUTO) 8.2 K/uL (1.8-7.7); NEUTROPHILS % (AUTO) 59.4 % (40.0-70.0); PLATELET COUNT (AUTO) 348 K/uL (130-430); RED BLOOD CELL COUNT(AUTO) 2.76 MIL/uL (4.2-6.2); RED CELL DISTRIBUTION WIDTH 17.6 % (9.0-15.0); WHITE BLOOD COUNT (AUTO) 13.9 K/uL (4.8-10.8)
[2022-03-23] MEDS: amLODIPine BESYLATE 10 MG TABLET GT SCH (09:00)
[2022-03-23] MEDS: CARVEDILOL 6.25 MG TABLET (COREG) GT SCH (09:00)
[2022-03-23 09:03] LABS: ALBUMIN 2.5 g/dL (3.4-4.8); C-REACTIVE PROTEIN QUANT 8.4 mg/dL (0-0.5); CALCIUM 9.8 mg/dL (8.4-11.0); CREATININE 6.44 mg/dL (0.55-1.30); PHOSPHORUS 6.9 mg/dL (2.7-4.5); TOTAL BILIRUBIN 0.4 mg/dL (0.0-1.0)
[2022-03-23] MEDS: ASPIRIN 81 MG TAB.CHEW GT SCH (09:17)
[2022-03-23] MEDS: CLOPIDOGREL BISULFATE 75 MG TABLET GT SCH (09:17)
[2022-03-23] MEDS: ACYCLOVIR IV 500 MG in NS 100 ML IV SCH (09:18)
[2022-03-23] MEDS: INSULIN GLARGINE 100 UNITS/ML, 10 ML VIAL SUBCUT SCH (09:20)
[2022-03-23] MEDS ORDERED: CEFEPIME 2 GM in D5W 100 ML IV SCH (13:00)
[2022-03-23] MEDS ORDERED: CEFEPIME 1 GM/DEXT-ISO-OSM 50 ML IV ONE (14:00)
[2022-03-23 16:58] VITALS: BP_SYST 88
[2022-03-23] MEDS: INSULIN REGULAR, HUMAN 100 UNITS/ML, 3 ML VIAL (humuLIN R) SUBCUT PRN ×2 (18:16→22:18)
[2022-03-23] MEDS: DONEPEZIL HCL 5 MG TABLET (ARICEPT) GT SCH (21:01)
[2022-03-23 21:03] VITALS: BP_SYST 101
[2022-03-23] MEDS: MIRTAZAPINE 15 MG TABLET GT SCH (21:03)
[2022-03-24 03:51] VITALS: BP_SYST 118
[2022-03-24] MEDS: NORMAL SALINE 5 ML DISP.SYRIN IVF SCH ×3 (06:48→22:00)
[2022-03-24] MEDS: INSULIN REGULAR, HUMAN 100 UNITS/ML, 3 ML VIAL (humuLIN R) SUBCUT PRN ×2 (07:04→11:32)
[2022-03-24 07:54] LABS: BASOPHILS # (AUTO) 0.1 K/uL (0.0-0.2); BASOPHILS % (AUTO) 0.4 % (0.0-2.0); EOSINOPHILS # (AUTO) 0.1 K/uL (0.0-0.4); EOSINOPHILS % (AUTO) 0.9 % (0.0-4.0); HEMATOCRIT 23.6 % (36-48); HEMOGLOBIN 7.8 g/dL (12.0-16.0); LYMPHOCYTES # (AUTO) 1.9 K/uL (1.0-5.5); LYMPHOCYTES % (AUTO) 11.4 % (20.5-51.5); MEAN CORPUSCULAR HEMOGLOBIN 30 pg (27-31); MEAN CORPUSCULAR HGB CONC 33 % (32-36); MEAN CORPUSCULAR VOLUME 92 fL (79.0-98.0); MONOCYTES # (AUTO) 1.2 K/uL (0.0-1.0); NEUTROPHILS # (AUTO) 13.6 K/uL (1.8-7.7); NEUTROPHILS % (AUTO) 80.3 % (40.0-70.0); PLATELET COUNT (AUTO) 298 K/uL (130-430); RED BLOOD CELL COUNT(AUTO) 2.56 MIL/uL (4.2-6.2); RED CELL DISTRIBUTION WIDTH 17.9 % (9.0-15.0); WHITE BLOOD COUNT (AUTO) 16.9 K/uL (4.8-10.8)
[2022-03-24 08:00] VITALS: BP_SYST 127
[2022-03-24 08:37] LABS: ERYTHROCYTE SEDIMENTATION RATE 127 MM/HR (0-20)
[2022-03-24 09:12] LABS: CALCIUM 9.6 mg/dL (8.4-11.0); CREATININE 4.75 mg/dL (0.55-1.30); PHOSPHORUS 3.6 mg/dL (2.7-4.5)
[2022-03-24] MEDS: ACYCLOVIR IV 500 MG in NS 100 ML IV SCH (09:52)
[2022-03-24] MEDS: ASPIRIN 81 MG TAB.CHEW GT SCH (09:53)
[2022-03-24] MEDS: CLOPIDOGREL BISULFATE 75 MG TABLET GT SCH (09:53)
[2022-03-24] MEDS: amLODIPine BESYLATE 10 MG TABLET GT SCH (09:53)
[2022-03-24] MEDS: CARVEDILOL 6.25 MG TABLET (COREG) GT SCH (09:54)
[2022-03-24] MEDS: INSULIN GLARGINE 100 UNITS/ML, 10 ML VIAL SUBCUT SCH (09:58)
[2022-03-24 12:20] VITALS: BP_SYST 110
[2022-03-24] MEDS ORDERED: VANCOMYCIN HCL 1 GM/NS PREMIX 250 ML IV ONE (13:30)
[2022-03-24] MEDS: ERTAPENEM SODIUM 0.5 GM in NS 50 ML IV SCH (13:44)
[2022-03-24] MEDS ORDERED: CEFEPIME 0.5 GM in D5W 50 ML IV SCH (14:00)
[2022-03-24 18:16] VITALS: BP_SYST 113
[2022-03-24 20:16] VITALS: BP_SYST 118
[2022-03-24] MEDS: DONEPEZIL HCL 5 MG TABLET (ARICEPT) GT SCH (21:15)
[2022-03-24] MEDS: MIRTAZAPINE 15 MG TABLET GT SCH (21:15)
[2022-03-25 01:03] VITALS: BP_SYST 117
[2022-03-25] MEDS: NORMAL SALINE 5 ML DISP.SYRIN IVF SCH ×3 (05:51→21:31)
[2022-03-25] MEDS: INSULIN REGULAR, HUMAN 100 UNITS/ML, 3 ML VIAL (humuLIN R) SUBCUT PRN ×3 (06:47→21:28)
[2022-03-25 07:05] LABS: BASOPHILS % (AUTO) 0.2 % (0.0-2.0); EOSINOPHILS # (AUTO) 0.3 K/uL (0.0-0.4); HEMATOCRIT 22.9 % (36-48); HEMOGLOBIN 7.5 g/dL (12.0-16.0); LYMPHOCYTES # (AUTO) 3.3 K/uL (1.0-5.5); LYMPHOCYTES % (AUTO) 24.1 % (20.5-51.5); MEAN CORPUSCULAR HEMOGLOBIN 30 pg (27-31); MEAN CORPUSCULAR HGB CONC 33 % (32-36); MEAN CORPUSCULAR VOLUME 92 fL (79.0-98.0); MONOCYTES # (AUTO) 1.2 K/uL (0.0-1.0); MONOCYTES % (AUTO) 8.7 % (1.7-9.3); PLATELET COUNT (AUTO) 333 K/uL (130-430); RED CELL DISTRIBUTION WIDTH 17.7 % (9.0-15.0); WHITE BLOOD COUNT (AUTO) 13.9 K/uL (4.8-10.8)
[2022-03-25 08:00] VITALS: BP_SYST 114
[2022-03-25] MEDS: INSULIN GLARGINE 100 UNITS/ML, 10 ML VIAL SUBCUT SCH (08:31)
[2022-03-25] MEDS: CARVEDILOL 6.25 MG TABLET (COREG) GT SCH (08:32)
[2022-03-25] MEDS: ASPIRIN 81 MG TAB.CHEW GT SCH (08:32)
[2022-03-25] MEDS: amLODIPine BESYLATE 10 MG TABLET GT SCH (08:33)
[2022-03-25] MEDS: CLOPIDOGREL BISULFATE 75 MG TABLET GT SCH (08:34)
[2022-03-25 08:47] LABS: ALBUMIN 2.3 g/dL (3.4-4.8); C-REACTIVE PROTEIN QUANT 7.3 mg/dL (0-0.5); CALCIUM 9.4 mg/dL (8.4-11.0); CREATININE 5.84 mg/dL (0.55-1.30); PHOSPHORUS 4.7 mg/dL (2.7-4.5); TOTAL BILIRUBIN 0.3 mg/dL (0.0-1.0)
[2022-03-25 08:49] LABS: ERYTHROCYTE SEDIMENTATION RATE > 140 MM/HR (0-20)
[2022-03-25] MEDS: ERTAPENEM SODIUM 0.5 GM in NS 50 ML IV SCH (11:40)
[2022-03-25 12:53] VITALS: BP_SYST 115
[2022-03-25 16:00] VITALS: BP_SYST 113
[2022-03-25 20:00] VITALS: BP_SYST 105
[2022-03-25] MEDS: MIRTAZAPINE 15 MG TABLET GT SCH (21:13)
[2022-03-25] MEDS: DONEPEZIL HCL 5 MG TABLET (ARICEPT) GT SCH (21:13)
[2022-03-26 00:09] VITALS: BP_SYST 99
[2022-03-26] MEDS: NORMAL SALINE 5 ML DISP.SYRIN IVF SCH ×3 (06:04→21:36)
[2022-03-26] MEDS: INSULIN REGULAR, HUMAN 100 UNITS/ML, 3 ML VIAL (humuLIN R) SUBCUT PRN ×2 (06:45→11:40)
[2022-03-26 07:24] LABS: BASOPHILS % (AUTO) 0.2 % (0.0-2.0); EOSINOPHILS # (AUTO) 0.1 K/uL (0.0-0.4); EOSINOPHILS % (AUTO) 0.8 % (0.0-4.0); HEMATOCRIT 24.2 % (36-48); HEMOGLOBIN 7.9 g/dL (12.0-16.0); LYMPHOCYTES # (AUTO) 3.1 K/uL (1.0-5.5); LYMPHOCYTES % (AUTO) 22.6 % (20.5-51.5); MEAN CORPUSCULAR HEMOGLOBIN 30 pg (27-31); MEAN CORPUSCULAR HGB CONC 33 % (32-36); MEAN CORPUSCULAR VOLUME 92 fL (79.0-98.0); MONOCYTES # (AUTO) 1.2 K/uL (0.0-1.0); MONOCYTES % (AUTO) 8.9 % (1.7-9.3); NEUTROPHILS # (AUTO) 9.1 K/uL (1.8-7.7); NEUTROPHILS % (AUTO) 67.5 % (40.0-70.0); PLATELET COUNT (AUTO) 349 K/uL (130-430); RED BLOOD CELL COUNT(AUTO) 2.63 MIL/uL (4.2-6.2); RED CELL DISTRIBUTION WIDTH 17.7 % (9.0-15.0); WHITE BLOOD COUNT (AUTO) 13.5 K/uL (4.8-10.8)
[2022-03-26 08:00] VITALS: BP_SYST 104
[2022-03-26 08:35] LABS: C-REACTIVE PROTEIN QUANT 7.9 mg/dL (0-0.5); CALCIUM 9.6 mg/dL (8.4-11.0); CREATININE 4.24 mg/dL (0.55-1.30); PHOSPHORUS 3.9 mg/dL (2.7-4.5)
[2022-03-26] MEDS: amLODIPine BESYLATE 10 MG TABLET GT SCH (09:00)
[2022-03-26] MEDS: CARVEDILOL 6.25 MG TABLET (COREG) GT SCH (09:00)
[2022-03-26] MEDS: ASPIRIN 81 MG TAB.CHEW GT SCH (09:39)
[2022-03-26] MEDS: INSULIN GLARGINE 100 UNITS/ML, 10 ML VIAL SUBCUT SCH (09:41)
[2022-03-26] MEDS: CLOPIDOGREL BISULFATE 75 MG TABLET GT SCH (09:41)
[2022-03-26 12:10] LABS: ERYTHROCYTE SEDIMENTATION RATE 123 MM/HR (0-20)
[2022-03-26 12:15] LABS: INR 0.9 (0.8-1.2); PROTHROMBIN TIME 9.7 SECS (9.5-12.5)
[2022-03-26] MEDS: ERTAPENEM SODIUM 0.5 GM in NS 50 ML IV SCH (12:17)
[2022-03-26 12:42] VITALS: BP_SYST 101
[2022-03-26 16:44] VITALS: BP_SYST 102
[2022-03-26 20:06] VITALS: BP_SYST 114
[2022-03-26] MEDS: MIRTAZAPINE 15 MG TABLET GT SCH (21:08)
[2022-03-26] MEDS: DONEPEZIL HCL 5 MG TABLET (ARICEPT) GT SCH (21:08)
[2022-03-27 00:40] VITALS: BP_SYST 124
[2022-03-27] MEDS: NORMAL SALINE 5 ML DISP.SYRIN IVF SCH ×3 (06:18→21:09)
[2022-03-27] MEDS: INSULIN REGULAR, HUMAN 100 UNITS/ML, 3 ML VIAL (humuLIN R) SUBCUT PRN ×2 (06:35→21:10)
[2022-03-27 07:31] LABS: BASOPHILS # (AUTO) 0.1 K/uL (0.0-0.2); BASOPHILS % (AUTO) 0.5 % (0.0-2.0); EOSINOPHILS # (AUTO) 0.2 K/uL (0.0-0.4); EOSINOPHILS % (AUTO) 1.9 % (0.0-4.0); HEMATOCRIT 22.8 % (36-48); HEMOGLOBIN 7.5 g/dL (12.0-16.0); LYMPHOCYTES # (AUTO) 3.7 K/uL (1.0-5.5); LYMPHOCYTES % (AUTO) 28.8 % (20.5-51.5); MEAN CORPUSCULAR HEMOGLOBIN 30 pg (27-31); MEAN CORPUSCULAR HGB CONC 33 % (32-36); MEAN CORPUSCULAR VOLUME 92 fL (79.0-98.0); MONOCYTES # (AUTO) 1.5 K/uL (0.0-1.0); NEUTROPHILS # (AUTO) 7.4 K/uL (1.8-7.7); NEUTROPHILS % (AUTO) 56.8 % (40.0-70.0); PLATELET COUNT (AUTO) 357 K/uL (130-430); RED BLOOD CELL COUNT(AUTO) 2.47 MIL/uL (4.2-6.2); RED CELL DISTRIBUTION WIDTH 17.5 % (9.0-15.0); WHITE BLOOD COUNT (AUTO) 12.9 K/uL (4.8-10.8)
[2022-03-27 08:00] VITALS: BP_SYST 102
[2022-03-27] MEDS: ASPIRIN 81 MG TAB.CHEW GT SCH (09:00)
[2022-03-27] MEDS: amLODIPine BESYLATE 10 MG TABLET GT SCH (09:00)
[2022-03-27] MEDS: CARVEDILOL 6.25 MG TABLET (COREG) GT SCH (09:00)
[2022-03-27 12:10] VITALS: BP_SYST 100
[2022-03-27 12:48] LABS: ERYTHROCYTE SEDIMENTATION RATE > 140 MM/HR (0-20)
[2022-03-27] MEDS: ERTAPENEM SODIUM 0.5 GM in NS 50 ML IV SCH (12:51)
[2022-03-27 14:49] LABS: CALCIUM 8.7 mg/dL (8.4-11.0); CREATININE 5.3 mg/dL (0.55-1.30); TOTAL BILIRUBIN 0.3 mg/dL (0.0-1.0)
[2022-03-27 14:50] LABS: ALBUMIN 2.4 g/dL (3.4-4.8); C-REACTIVE PROTEIN QUANT 7.4 mg/dL (0-0.5); PHOSPHORUS 6.2 mg/dL (2.7-4.5)
[2022-03-27 15:25] VITALS: BP_SYST 90
[2022-03-27 20:00] VITALS: BP_SYST 97
[2022-03-27] MEDS: MIRTAZAPINE 15 MG TABLET GT SCH (21:06)
[2022-03-27] MEDS: DONEPEZIL HCL 5 MG TABLET (ARICEPT) GT SCH (21:06)
[2022-03-28 01:16] VITALS: BP_SYST 92
[2022-03-28] MEDS: INSULIN REGULAR, HUMAN 100 UNITS/ML, 3 ML VIAL (humuLIN R) SUBCUT PRN ×3 (06:28→20:57)
[2022-03-28] MEDS: NORMAL SALINE 5 ML DISP.SYRIN IVF SCH ×3 (06:35→21:07)
[2022-03-28 08:03] VITALS: BP_SYST 99
[2022-03-28 08:51] LABS: BASOPHILS % (AUTO) 0.5 % (0.0-2.0); EOSINOPHILS # (AUTO) 0.2 K/uL (0.0-0.4); EOSINOPHILS % (AUTO) 1.8 % (0.0-4.0); HEMATOCRIT 23.9 % (36-48); HEMOGLOBIN 7.9 g/dL (12.0-16.0); LYMPHOCYTES # (AUTO) 2.6 K/uL (1.0-5.5); LYMPHOCYTES % (AUTO) 25.7 % (20.5-51.5); MEAN CORPUSCULAR HEMOGLOBIN 31 pg (27-31); MEAN CORPUSCULAR HGB CONC 33 % (32-36); MEAN CORPUSCULAR VOLUME 94 fL (79.0-98.0); MONOCYTES # (AUTO) 1.1 K/uL (0.0-1.0); NEUTROPHILS # (AUTO) 6.1 K/uL (1.8-7.7); PLATELET COUNT (AUTO) 428 K/uL (130-430); RED BLOOD CELL COUNT(AUTO) 2.55 MIL/uL (4.2-6.2); RED CELL DISTRIBUTION WIDTH 18.3 % (9.0-15.0); WHITE BLOOD COUNT (AUTO) 9.9 K/uL (4.8-10.8)
[2022-03-28] MEDS: amLODIPine BESYLATE 10 MG TABLET GT SCH (09:00)
[2022-03-28] MEDS: INSULIN GLARGINE 100 UNITS/ML, 10 ML VIAL SUBCUT SCH (09:00)
[2022-03-28] MEDS: CARVEDILOL 6.25 MG TABLET (COREG) GT SCH (09:00)
[2022-03-28] MEDS: ASPIRIN 81 MG TAB.CHEW GT SCH (09:01)
[2022-03-28 09:08] LABS: C-REACTIVE PROTEIN QUANT 4.7 mg/dL (0-0.5); CALCIUM 10.2 mg/dL (8.4-11.0); CREATININE 3.93 mg/dL (0.55-1.30); PHOSPHORUS 5.1 mg/dL (2.7-4.5)
[2022-03-28] MEDS: ERTAPENEM SODIUM 0.5 GM in NS 50 ML IV SCH (11:50)
[2022-03-28 12:00] VITALS: BP_SYST 104
[2022-03-28 16:34] VITALS: BP_SYST 112
[2022-03-28 20:37] VITALS: BP_SYST 113
[2022-03-28] MEDS: MIRTAZAPINE 15 MG TABLET GT SCH (20:52)
[2022-03-28] MEDS: DONEPEZIL HCL 5 MG TABLET (ARICEPT) GT SCH (20:53)
[2022-03-28] MEDS: ACETAMINOPHEN 650 MG/20.3 ML UDC GT PRN (21:06)
[2022-03-29 00:26] VITALS: BP_SYST 112
[2022-03-29] MEDS: NORMAL SALINE 5 ML DISP.SYRIN IVF SCH ×3 (06:41→20:57)
[2022-03-29] MEDS: ASPIRIN 81 MG TAB.CHEW GT SCH (07:55)
[2022-03-29] MEDS: amLODIPine BESYLATE 10 MG TABLET GT SCH (07:56)
[2022-03-29] MEDS: CARVEDILOL 6.25 MG TABLET (COREG) GT SCH (07:56)
[2022-03-29] MEDS: INSULIN GLARGINE 100 UNITS/ML, 10 ML VIAL SUBCUT SCH (07:57)
[2022-03-29 08:01] VITALS: BP_SYST 110
[2022-03-29] MEDS ORDERED: SODIUM POLYSTYRENE SULFONATE 15 GM/60 ML UDBTL PO ONE (11:00)
[2022-03-29] MEDS ORDERED: NS 1000 ML IV.SOLN IV ONE (11:30)
[2022-03-29] MEDS ORDERED: ePHEDrine sulfate 50 MG/ML VIAL IVP ONE (11:30)
[2022-03-29] MEDS ORDERED: MIDAZOLAM HCL 5 MG/5 ML VIAL IVP ONE (11:30)
[2022-03-29] MEDS ORDERED: BUPIVACAINE /EPINEPHRINE/PF 0.5% 30 ML VIAL INJ ONE (11:30)
[2022-03-29] MEDS ORDERED: LIDOCAINE 1% 10 MG/ML, 20 ML MDV INJ ONE (11:30)
[2022-03-29] MEDS ORDERED: NS IRRIG SOLN 1000 ML IR ONE (11:30)
[2022-03-29] MEDS ORDERED: fentaNYL CITRATE/PF 100 MCG/2 ML AMP IVP ONE (11:30)
[2022-03-29] MEDS ORDERED: PROPOFOL 200MG/ 20ML VIAL (DIPRIVAN) IV ONE (11:30)
[2022-03-29] MEDS: ERTAPENEM SODIUM 0.5 GM in NS 50 ML IV SCH (13:43)
[2022-03-29] MEDS: ACETAMINOPHEN 650 MG/20.3 ML UDC GT PRN ×2 (13:44→21:02)
[2022-03-29] MEDS ORDERED: ALBUMIN HUMAN 25% 100 ML IV ONE (15:15)
[2022-03-29 16:03] VITALS: BP_SYST 120
[2022-03-29 16:05] LABS: BASOPHILS # (AUTO) 0.1 K/uL (0.0-0.2); BASOPHILS % (AUTO) 0.6 % (0.0-2.0); EOSINOPHILS # (AUTO) 0.2 K/uL (0.0-0.4); EOSINOPHILS % (AUTO) 1.7 % (0.0-4.0); HEMATOCRIT 23.7 % (36-48); HEMOGLOBIN 7.8 g/dL (12.0-16.0); LYMPHOCYTES # (AUTO) 3.4 K/uL (1.0-5.5); LYMPHOCYTES % (AUTO) 28.1 % (20.5-51.5); MEAN CORPUSCULAR HEMOGLOBIN 31 pg (27-31); MEAN CORPUSCULAR HGB CONC 33 % (32-36); MEAN CORPUSCULAR VOLUME 93 fL (79.0-98.0); MONOCYTES % (AUTO) 8.1 % (1.7-9.3); NEUTROPHILS # (AUTO) 7.4 K/uL (1.8-7.7); NEUTROPHILS % (AUTO) 61.5 % (40.0-70.0); PLATELET COUNT (AUTO) 458 K/uL (130-430); RED BLOOD CELL COUNT(AUTO) 2.55 MIL/uL (4.2-6.2); RED CELL DISTRIBUTION WIDTH 18.1 % (9.0-15.0)
[2022-03-29 16:09] LABS: ALBUMIN 2.8 g/dL (3.4-4.8); CALCIUM 9.8 mg/dL (8.4-11.0); CREATININE 2.95 mg/dL (0.55-1.30); TOTAL BILIRUBIN 0.3 mg/dL (0.0-1.0)
[2022-03-29] MEDS: INSULIN REGULAR, HUMAN 100 UNITS/ML, 3 ML VIAL (humuLIN R) SUBCUT PRN ×2 (17:20→21:02)
[2022-03-29 20:09] VITALS: BP_SYST 130
[2022-03-29] MEDS: MIRTAZAPINE 15 MG TABLET GT SCH (20:56)
[2022-03-29] MEDS: DONEPEZIL HCL 5 MG TABLET (ARICEPT) GT SCH (20:57)
[2022-03-30] VITALS: BP_SYST 146
[2022-03-30] MEDS: NORMAL SALINE 5 ML DISP.SYRIN IVF SCH ×3 (06:21→21:22)
[2022-03-30] MEDS: INSULIN REGULAR, HUMAN 100 UNITS/ML, 3 ML VIAL (humuLIN R) SUBCUT PRN ×3 (06:23→21:15)
[2022-03-30 07:52] LABS: CALCIUM 9.8 mg/dL (8.4-11.0); CREATININE 4.08 mg/dL (0.55-1.30)
[2022-03-30 08:01] VITALS: BP_SYST 104
[2022-03-30] MEDS: ASPIRIN 81 MG TAB.CHEW GT SCH (08:48)
[2022-03-30] MEDS: amLODIPine BESYLATE 10 MG TABLET GT SCH (08:50)
[2022-03-30] MEDS: CARVEDILOL 6.25 MG TABLET (COREG) GT SCH (08:50)
[2022-03-30] MEDS: INSULIN GLARGINE 100 UNITS/ML, 10 ML VIAL SUBCUT SCH (08:53)
[2022-03-30] MEDS: ERTAPENEM SODIUM 0.5 GM in NS 50 ML IV SCH (12:01)
[2022-03-30 16:55] VITALS: BP_SYST 107
[2022-03-30 19:42] VITALS: BP_SYST 96
[2022-03-30] MEDS: ACETAMINOPHEN 650 MG/20.3 ML UDC GT PRN (21:07)
[2022-03-30] MEDS: DONEPEZIL HCL 5 MG TABLET (ARICEPT) GT SCH (21:07)
[2022-03-30] MEDS: MIRTAZAPINE 15 MG TABLET GT SCH (21:08)
[2022-03-31 00:07] VITALS: BP_SYST 107
[2022-03-31] MEDS: INSULIN REGULAR, HUMAN 100 UNITS/ML, 3 ML VIAL (humuLIN R) SUBCUT PRN ×3 (06:48→17:42)
[2022-03-31 07:40] LABS: BASOPHILS # (AUTO) 0.1 K/uL (0.0-0.2); BASOPHILS % (AUTO) 0.5 % (0.0-2.0); EOSINOPHILS # (AUTO) 0.2 K/uL (0.0-0.4); EOSINOPHILS % (AUTO) 1.8 % (0.0-4.0); LYMPHOCYTES # (AUTO) 2.5 K/uL (1.0-5.5); LYMPHOCYTES % (AUTO) 20.9 % (20.5-51.5); MEAN CORPUSCULAR HEMOGLOBIN 30 pg (27-31); MEAN CORPUSCULAR HGB CONC 32 % (32-36); MEAN CORPUSCULAR VOLUME 93 fL (79.0-98.0); NEUTROPHILS # (AUTO) 8.2 K/uL (1.8-7.7); NEUTROPHILS % (AUTO) 68.8 % (40.0-70.0); PLATELET COUNT (AUTO) 443 K/uL (130-430); RED BLOOD CELL COUNT(AUTO) 2.68 MIL/uL (4.2-6.2); RED CELL DISTRIBUTION WIDTH 18.4 % (9.0-15.0)
[2022-03-31 08:00] VITALS: BP_SYST 132
[2022-03-31] MEDS: ASPIRIN 81 MG TAB.CHEW GT SCH (08:18)
[2022-03-31] MEDS: CARVEDILOL 6.25 MG TABLET (COREG) GT SCH (08:20)
[2022-03-31] MEDS: amLODIPine BESYLATE 10 MG TABLET GT SCH (08:22)
[2022-03-31 08:25] LABS: ERYTHROCYTE SEDIMENTATION RATE 49 MM/HR (0-20)
[2022-03-31 08:40] LABS: PHOSPHORUS 6.4 mg/dL (2.7-4.5)
[2022-03-31 10:26] LABS: CALCIUM 9.8 mg/dL (8.4-11.0); CREATININE 3.53 mg/dL (0.55-1.30)
[2022-03-31] MEDS: INSULIN GLARGINE 100 UNITS/ML, 10 ML VIAL SUBCUT SCH (11:27)
[2022-03-31] MEDS ORDERED: SODIUM POLYSTYRENE SULFONATE 15 GM/60 ML UDBTL PO ONE (11:30)
[2022-03-31] MEDS: ERTAPENEM SODIUM 0.5 GM in NS 50 ML IV SCH (11:37)
[2022-03-31 11:40] VITALS: BP_SYST 117
[2022-03-31] MEDS: NORMAL SALINE 5 ML DISP.SYRIN IVF SCH ×2 (14:57→20:06)
[2022-03-31 15:20] VITALS: BP_SYST 162
[2022-03-31 19:16] LABS: CSF WHITE BLOOD CELL COUNT 0 /uL (0-5)
[2022-03-31 19:23] LABS: CSF GLUCOSE 143 mg/dL (40-70); CSF PROTEIN 75 mg/dL (15-45)
[2022-03-31 20:00] VITALS: BP_SYST 127
[2022-03-31] MEDS: DONEPEZIL HCL 5 MG TABLET (ARICEPT) GT SCH (20:05)
[2022-03-31] MEDS: MIRTAZAPINE 15 MG TABLET GT SCH (20:05)
[2022-04-01] VITALS: BP_SYST 123
[2022-04-01] MEDS: NORMAL SALINE 5 ML DISP.SYRIN IVF SCH ×3 (06:29→20:55)
[2022-04-01] MEDS: INSULIN REGULAR, HUMAN 100 UNITS/ML, 3 ML VIAL (humuLIN R) SUBCUT PRN ×3 (06:34→21:05)
[2022-04-01 06:59] LABS: BASOPHILS % (AUTO) 0.2 % (0.0-2.0); EOSINOPHILS # (AUTO) 0.2 K/uL (0.0-0.4); EOSINOPHILS % (AUTO) 1.3 % (0.0-4.0); HEMATOCRIT 23.4 % (36-48); HEMOGLOBIN 7.5 g/dL (12.0-16.0); LYMPHOCYTES # (AUTO) 3.5 K/uL (1.0-5.5); LYMPHOCYTES % (AUTO) 24.9 % (20.5-51.5); MEAN CORPUSCULAR HEMOGLOBIN 30 pg (27-31); MEAN CORPUSCULAR HGB CONC 32 % (32-36); MEAN CORPUSCULAR VOLUME 92 fL (79.0-98.0); MONOCYTES # (AUTO) 1.1 K/uL (0.0-1.0); MONOCYTES % (AUTO) 8.2 % (1.7-9.3); NEUTROPHILS # (AUTO) 9.1 K/uL (1.8-7.7); NEUTROPHILS % (AUTO) 65.4 % (40.0-70.0); PLATELET COUNT (AUTO) 465 K/uL (130-430); RED BLOOD CELL COUNT(AUTO) 2.53 MIL/uL (4.2-6.2); RED CELL DISTRIBUTION WIDTH 18.5 % (9.0-15.0)
[2022-04-01 07:15] LABS: C-REACTIVE PROTEIN QUANT 2.3 mg/dL (0-0.5); CALCIUM 9.6 mg/dL (8.4-11.0); CREATININE 4.92 mg/dL (0.55-1.30); PHOSPHORUS 9.4 mg/dL (2.7-4.5)
[2022-04-01 08:00] VITALS: BP_SYST 98
[2022-04-01] MEDS: CARVEDILOL 6.25 MG TABLET (COREG) GT SCH (09:00)
[2022-04-01] MEDS: amLODIPine BESYLATE 10 MG TABLET GT SCH (09:00)
[2022-04-01] MEDS: ASPIRIN 81 MG TAB.CHEW GT SCH (09:08)
[2022-04-01] MEDS: INSULIN GLARGINE 100 UNITS/ML, 10 ML VIAL SUBCUT SCH (09:21)
[2022-04-01 09:30] LABS: ERYTHROCYTE SEDIMENTATION RATE > 140 MM/HR (0-20)
[2022-04-01] MEDS ORDERED: HEPARIN SODIUM, PORCINE 10,000 UNITS/ 10 ML VIAL MC ONE (12:45)
[2022-04-01 12:53] VITALS: BP_SYST 103
[2022-04-01] MEDS: ERTAPENEM SODIUM 0.5 GM in NS 50 ML IV SCH (14:46)
[2022-04-01 16:00] VITALS: BP_SYST 101
[2022-04-01 20:00] VITALS: BP_SYST 102
[2022-04-01] MEDS: MIRTAZAPINE 15 MG TABLET GT SCH (20:53)
[2022-04-01] MEDS: DONEPEZIL HCL 5 MG TABLET (ARICEPT) GT SCH (20:53)
[2022-04-02 00:49] VITALS: BP_SYST 117
[2022-04-02 06:31] LABS: BASOPHILS # (AUTO) 0.1 K/uL (0.0-0.2); BASOPHILS % (AUTO) 0.4 % (0.0-2.0); EOSINOPHILS # (AUTO) 0.1 K/uL (0.0-0.4); HEMATOCRIT 23.7 % (36-48); HEMOGLOBIN 7.8 g/dL (12.0-16.0); LYMPHOCYTES # (AUTO) 3.5 K/uL (1.0-5.5); LYMPHOCYTES % (AUTO) 28.1 % (20.5-51.5); MEAN CORPUSCULAR HEMOGLOBIN 30 pg (27-31); MEAN CORPUSCULAR HGB CONC 33 % (32-36); MEAN CORPUSCULAR VOLUME 92 fL (79.0-98.0); MONOCYTES # (AUTO) 1.1 K/uL (0.0-1.0); MONOCYTES % (AUTO) 8.6 % (1.7-9.3); NEUTROPHILS # (AUTO) 7.8 K/uL (1.8-7.7); NEUTROPHILS % (AUTO) 61.9 % (40.0-70.0); PLATELET COUNT (AUTO) 458 K/uL (130-430); RED BLOOD CELL COUNT(AUTO) 2.56 MIL/uL (4.2-6.2); WHITE BLOOD COUNT (AUTO) 12.6 K/uL (4.8-10.8)
[2022-04-02 07:28] LABS: C-REACTIVE PROTEIN QUANT 1.8 mg/dL (0-0.5); CALCIUM 9.1 mg/dL (8.4-11.0); CREATININE 3.52 mg/dL (0.55-1.30)
[2022-04-02 08:00] VITALS: BP_SYST 98
[2022-04-02] MEDS: NORMAL SALINE 5 ML DISP.SYRIN IVF SCH ×3 (08:06→23:24)
[2022-04-02 08:57] LABS: ERYTHROCYTE SEDIMENTATION RATE 127 MM/HR (0-20)
[2022-04-02] MEDS: CARVEDILOL 6.25 MG TABLET (COREG) GT SCH (09:00)
[2022-04-02] MEDS: amLODIPine BESYLATE 10 MG TABLET GT SCH (09:00)
[2022-04-02] MEDS: ASPIRIN 81 MG TAB.CHEW GT SCH (09:48)
[2022-04-02] MEDS: INSULIN GLARGINE 100 UNITS/ML, 10 ML VIAL SUBCUT SCH (09:52)
[2022-04-02 12:00] VITALS: BP_SYST 123
[2022-04-02] MEDS: ERTAPENEM SODIUM 0.5 GM in NS 50 ML IV SCH (12:01)
[2022-04-02 16:00] VITALS: BP_SYST 104
[2022-04-02] MEDS ORDERED: GLUCOSE (DEXTROSE) ORAL GEL -Adults PO PRN (18:30)
[2022-04-02] MEDS ORDERED: DEXTROSE 50% JECT 50 ML DISP.SYRIN IVP ONE (18:30)
[2022-04-02] MEDS ORDERED: DEXTROSE 50%-WATER 50 ML DISP.SYRIN IVP PRN (18:30)
[2022-04-02] MEDS ORDERED: D5W 1,000 ML IV PRN (18:30)
[2022-04-02] MEDS: DONEPEZIL HCL 5 MG TABLET (ARICEPT) GT SCH (21:05)
[2022-04-02] MEDS: MIRTAZAPINE 15 MG TABLET GT SCH (21:05)
[2022-04-03 00:55] VITALS: BP_SYST 96
[2022-04-03 04:00] VITALS: BP_SYST 110
[2022-04-03] MEDS: NORMAL SALINE 5 ML DISP.SYRIN IVF SCH ×3 (06:01→22:02)
[2022-04-03 06:52] LABS: BASOPHILS # (AUTO) 0.1 K/uL (0.0-0.2); BASOPHILS % (AUTO) 0.6 % (0.0-2.0); EOSINOPHILS # (AUTO) 0.2 K/uL (0.0-0.4); EOSINOPHILS % (AUTO) 1.4 % (0.0-4.0); HEMATOCRIT 23.2 % (36-48); HEMOGLOBIN 7.6 g/dL (12.0-16.0); LYMPHOCYTES # (AUTO) 3.1 K/uL (1.0-5.5); LYMPHOCYTES % (AUTO) 19.6 % (20.5-51.5); MEAN CORPUSCULAR HEMOGLOBIN 31 pg (27-31); MEAN CORPUSCULAR HGB CONC 33 % (32-36); MEAN CORPUSCULAR VOLUME 93 fL (79.0-98.0); MONOCYTES # (AUTO) 1.3 K/uL (0.0-1.0); MONOCYTES % (AUTO) 8.3 % (1.7-9.3); NEUTROPHILS % (AUTO) 70.1 % (40.0-70.0); PLATELET COUNT (AUTO) 474 K/uL (130-430); RED CELL DISTRIBUTION WIDTH 18.6 % (9.0-15.0); WHITE BLOOD COUNT (AUTO) 15.8 K/uL (4.8-10.8)
[2022-04-03 07:05] LABS: ALBUMIN 2.9 g/dL (3.4-4.8); C-REACTIVE PROTEIN QUANT 1.8 mg/dL (0-0.5); CALCIUM 9.7 mg/dL (8.4-11.0); PHOSPHORUS 9.5 mg/dL (2.7-4.5); TOTAL BILIRUBIN 0.3 mg/dL (0.0-1.0)
[2022-04-03] MEDS: CARVEDILOL 6.25 MG TABLET (COREG) GT SCH (09:00)
[2022-04-03] MEDS: amLODIPine BESYLATE 10 MG TABLET GT SCH (09:00)
[2022-04-03 09:47] VITALS: BP_SYST 100; BP_SYST 74
[2022-04-03] MEDS: INSULIN GLARGINE 100 UNITS/ML, 10 ML VIAL SUBCUT SCH (09:58)
[2022-04-03] MEDS: ASPIRIN 81 MG TAB.CHEW GT SCH (10:01)
[2022-04-03 10:15] LABS: ERYTHROCYTE SEDIMENTATION RATE > 140 MM/HR (0-20)
[2022-04-03] MEDS: INSULIN REGULAR, HUMAN 100 UNITS/ML, 3 ML VIAL (humuLIN R) SUBCUT PRN ×2 (11:34→21:56)
[2022-04-03 12:00] VITALS: BP_SYST 138
[2022-04-03] MEDS: ERTAPENEM SODIUM 0.5 GM in NS 50 ML IV SCH ×2 (12:00→13:29)
[2022-04-03] MEDS ORDERED: ALBUMIN HUMAN 25% 200 ML IV ONE (12:30)
[2022-04-03 16:00] VITALS: BP_SYST 137
[2022-04-03 20:00] VITALS: BP_SYST 100
[2022-04-03] MEDS: DONEPEZIL HCL 5 MG TABLET (ARICEPT) GT SCH (20:25)
[2022-04-03] MEDS: MIRTAZAPINE 15 MG TABLET GT SCH (20:25)
[2022-04-04 00:49] VITALS: BP_SYST 131
[2022-04-04 05:00] VITALS: BP_SYST 122
[2022-04-04] MEDS: NORMAL SALINE 5 ML DISP.SYRIN IVF SCH ×2 (06:31→14:16)
[2022-04-04 07:19] LABS: INR 0.9 (0.8-1.2); PROTHROMBIN TIME 9.5 SECS (9.5-12.5)
[2022-04-04 07:23] LABS: C-REACTIVE PROTEIN QUANT 3.8 mg/dL (0-0.5); CALCIUM 9.6 mg/dL (8.4-11.0); CREATININE 3.44 mg/dL (0.55-1.30); PHOSPHORUS 6.4 mg/dL (2.7-4.5)
[2022-04-04 08:00] VITALS: BP_SYST 127
[2022-04-04 08:32] LABS: BASOPHILS # (AUTO) 0.2 K/uL (0.0-0.2); BASOPHILS % (AUTO) 1.2 % (0.0-2.0); EOSINOPHILS # (AUTO) 0.2 K/uL (0.0-0.4); EOSINOPHILS % (AUTO) 1.8 % (0.0-4.0); HEMOGLOBIN 7.2 g/dL (12.0-16.0); LYMPHOCYTES # (AUTO) 2.5 K/uL (1.0-5.5); LYMPHOCYTES % (AUTO) 19.1 % (20.5-51.5); MEAN CORPUSCULAR HEMOGLOBIN 30 pg (27-31); MEAN CORPUSCULAR HGB CONC 33 % (32-36); MEAN CORPUSCULAR VOLUME 93 fL (79.0-98.0); MONOCYTES # (AUTO) 1.2 K/uL (0.0-1.0); MONOCYTES % (AUTO) 8.9 % (1.7-9.3); NEUTROPHILS # (AUTO) 9.2 K/uL (1.8-7.7); PLATELET COUNT (AUTO) 408 K/uL (130-430); RED BLOOD CELL COUNT(AUTO) 2.37 MIL/uL (4.2-6.2); RED CELL DISTRIBUTION WIDTH 18.2 % (9.0-15.0); WHITE BLOOD COUNT (AUTO) 13.3 K/uL (4.8-10.8)
[2022-04-04] MEDS: ASPIRIN 81 MG TAB.CHEW GT SCH (09:01)
[2022-04-04] MEDS: CARVEDILOL 6.25 MG TABLET (COREG) GT SCH (09:01)
[2022-04-04] MEDS: amLODIPine BESYLATE 10 MG TABLET GT SCH (09:02)
[2022-04-04] MEDS: INSULIN GLARGINE 100 UNITS/ML, 10 ML VIAL SUBCUT SCH (09:09)
[2022-04-04 09:25] LABS: ERYTHROCYTE SEDIMENTATION RATE > 140 MM/HR (0-20)
[2022-04-04] MEDS: ERTAPENEM SODIUM 0.5 GM in NS 50 ML IV SCH (12:53)
[2022-04-04 14:15] VITALS: BP_SYST 112
[2022-04-04 18:03] VITALS: BP_SYST 102
[2022-04-04] MEDS: INSULIN REGULAR, HUMAN 100 UNITS/ML, 3 ML VIAL (humuLIN R) SUBCUT PRN (21:04)
[2022-04-04] MEDS: DONEPEZIL HCL 5 MG TABLET (ARICEPT) GT SCH (21:15)
[2022-04-04] MEDS: MIRTAZAPINE 15 MG TABLET GT SCH (21:18)
[2022-04-04 21:38] VITALS: BP_SYST 116
[2022-04-05] VITALS: BP_SYST 101
[2022-04-05] MEDS: NORMAL SALINE 5 ML DISP.SYRIN IVF SCH ×4 (07:51→23:41)
[2022-04-05] MEDS: INSULIN REGULAR, HUMAN 100 UNITS/ML, 3 ML VIAL (humuLIN R) SUBCUT PRN ×3 (07:57→17:21)
[2022-04-05 08:00] VITALS: BP_SYST 95
[2022-04-05 08:07] LABS: BASOPHILS # (AUTO) 0.1 K/uL (0.0-0.2); BASOPHILS % (AUTO) 0.8 % (0.0-2.0); EOSINOPHILS # (AUTO) 0.1 K/uL (0.0-0.4); HEMATOCRIT 22.6 % (36-48); HEMOGLOBIN 7.5 g/dL (12.0-16.0); LYMPHOCYTES # (AUTO) 2.6 K/uL (1.0-5.5); LYMPHOCYTES % (AUTO) 19.8 % (20.5-51.5); MEAN CORPUSCULAR HEMOGLOBIN 31 pg (27-31); MEAN CORPUSCULAR HGB CONC 33 % (32-36); MEAN CORPUSCULAR VOLUME 92 fL (79.0-98.0); MONOCYTES # (AUTO) 1.3 K/uL (0.0-1.0); MONOCYTES % (AUTO) 10.1 % (1.7-9.3); NEUTROPHILS # (AUTO) 8.9 K/uL (1.8-7.7); NEUTROPHILS % (AUTO) 68.3 % (40.0-70.0); PLATELET COUNT (AUTO) 384 K/uL (130-430); RED BLOOD CELL COUNT(AUTO) 2.46 MIL/uL (4.2-6.2); WHITE BLOOD COUNT (AUTO) 13.1 K/uL (4.8-10.8)
[2022-04-05 08:45] LABS: C-REACTIVE PROTEIN QUANT 5.4 mg/dL (0-0.5); CALCIUM 9.9 mg/dL (8.4-11.0); CREATININE 2.93 mg/dL (0.55-1.30); PHOSPHORUS 4.2 mg/dL (2.7-4.5)
[2022-04-05] MEDS: CARVEDILOL 6.25 MG TABLET (COREG) GT SCH (09:00)
[2022-04-05] MEDS: amLODIPine BESYLATE 10 MG TABLET GT SCH (09:00)
[2022-04-05] MEDS: ASPIRIN 81 MG TAB.CHEW GT SCH (10:03)
[2022-04-05] MEDS: ACETAMINOPHEN 650 MG/20.3 ML UDC GT PRN (10:04)
[2022-04-05] MEDS: INSULIN GLARGINE 100 UNITS/ML, 10 ML VIAL SUBCUT SCH (10:09)
[2022-04-05 11:00] VITALS: BP_SYST 113
[2022-04-05 11:38] LABS: ERYTHROCYTE SEDIMENTATION RATE > 140 MM/HR (0-20)
[2022-04-05] MEDS: ERTAPENEM SODIUM 0.5 GM in NS 50 ML IV SCH (12:15)
[2022-04-05 14:55] VITALS: BP_SYST 124
[2022-04-05 20:00] VITALS: BP_SYST 115
[2022-04-05] MEDS: DONEPEZIL HCL 5 MG TABLET (ARICEPT) GT SCH (23:39)
[2022-04-05] MEDS: MIRTAZAPINE 15 MG TABLET GT SCH (23:40)
[2022-04-06 01:06] VITALS: BP_SYST 105
[2022-04-06] MEDS: NORMAL SALINE 5 ML DISP.SYRIN IVF SCH ×3 (06:46→22:37)
[2022-04-06 07:25] LABS: ALBUMIN 3.6 g/dL (3.4-4.8); C-REACTIVE PROTEIN QUANT 5.9 mg/dL (0-0.5); CALCIUM 10.6 mg/dL (8.4-11.0); CREATININE 4.61 mg/dL (0.55-1.30); PHOSPHORUS 7.2 mg/dL (2.7-4.5); TOTAL BILIRUBIN 0.3 mg/dL (0.0-1.0)
[2022-04-06 07:45] LABS: BASOPHILS # (AUTO) 0.1 K/uL (0.0-0.2); BASOPHILS % (AUTO) 0.8 % (0.0-2.0); EOSINOPHILS # (AUTO) 0.3 K/uL (0.0-0.4); EOSINOPHILS % (AUTO) 2.2 % (0.0-4.0); LYMPHOCYTES # (AUTO) 3.5 K/uL (1.0-5.5); LYMPHOCYTES % (AUTO) 22.4 % (20.5-51.5); MEAN CORPUSCULAR HEMOGLOBIN 31 pg (27-31); MEAN CORPUSCULAR HGB CONC 33 % (32-36); MEAN CORPUSCULAR VOLUME 92 fL (79.0-98.0); MONOCYTES # (AUTO) 1.3 K/uL (0.0-1.0); MONOCYTES % (AUTO) 8.5 % (1.7-9.3); NEUTROPHILS # (AUTO) 10.4 K/uL (1.8-7.7); NEUTROPHILS % (AUTO) 66.1 % (40.0-70.0); PLATELET COUNT (AUTO) 395 K/uL (130-430); RED BLOOD CELL COUNT(AUTO) 2.17 MIL/uL (4.2-6.2); RED CELL DISTRIBUTION WIDTH 18.1 % (9.0-15.0); WHITE BLOOD COUNT (AUTO) 15.7 K/uL (4.8-10.8)
[2022-04-06 08:09] LABS: HEMATOCRIT 19.9 % (36-48); HEMOGLOBIN 6.7 g/dL (12.0-16.0)
[2022-04-06 08:10] VITALS: BP_SYST 88
[2022-04-06] MEDS: ASPIRIN 81 MG TAB.CHEW GT SCH (08:37)
[2022-04-06] MEDS: INSULIN GLARGINE 100 UNITS/ML, 10 ML VIAL SUBCUT SCH (08:38)
[2022-04-06] MEDS: CARVEDILOL 6.25 MG TABLET (COREG) GT SCH (08:52)
[2022-04-06] MEDS: amLODIPine BESYLATE 10 MG TABLET GT SCH (08:52)
[2022-04-06] MEDS: NS 500 ML IV PRN (09:23)
[2022-04-06 09:33] LABS: ERYTHROCYTE SEDIMENTATION RATE > 140 MM/HR (0-20)
[2022-04-06] MEDS: ERTAPENEM SODIUM 0.5 GM in NS 50 ML IV SCH (11:24)
[2022-04-06 12:15] VITALS: BP_SYST 91
[2022-04-06] MEDS: metroNIDAZOLE 250 mg/NS 50 ML IV SCH ×2 (15:17→22:24)
[2022-04-06 16:05] VITALS: BP_SYST 146
[2022-04-06 16:08] LABS: BASOPHILS # (AUTO) 0.1 K/uL (0.0-0.2); BASOPHILS % (AUTO) 0.5 % (0.0-2.0); EOSINOPHILS # (AUTO) 0.2 K/uL (0.0-0.4); EOSINOPHILS % (AUTO) 1.3 % (0.0-4.0); HEMOGLOBIN 9.3 g/dL (12.0-16.0); LYMPHOCYTES # (AUTO) 2.1 K/uL (1.0-5.5); LYMPHOCYTES % (AUTO) 12.8 % (20.5-51.5); MEAN CORPUSCULAR HEMOGLOBIN 29 pg (27-31); MEAN CORPUSCULAR HGB CONC 33 % (32-36); MONOCYTES # (AUTO) 1.4 K/uL (0.0-1.0); MONOCYTES % (AUTO) 8.5 % (1.7-9.3); NEUTROPHILS # (AUTO) 12.4 K/uL (1.8-7.7); NEUTROPHILS % (AUTO) 76.9 % (40.0-70.0); PLATELET COUNT (AUTO) 321 K/uL (130-430); RED BLOOD CELL COUNT(AUTO) 3.22 MIL/uL (4.2-6.2); RED CELL DISTRIBUTION WIDTH 19.3 % (9.0-15.0); WHITE BLOOD COUNT (AUTO) 16.1 K/uL (4.8-10.8)
[2022-04-06 16:12] LABS: MEAN CORPUSCULAR VOLUME 87 fL (79.0-98.0)
[2022-04-06] MEDS: EPOETIN ALFA-EPBX 3,000 UNITS/ML VIAL SUBCUT SCH (17:48)
[2022-04-06] MEDS: INSULIN REGULAR, HUMAN 100 UNITS/ML, 3 ML VIAL (humuLIN R) SUBCUT PRN ×2 (17:48→22:46)
[2022-04-06 20:00] VITALS: BP_SYST 140
[2022-04-06] MEDS: DONEPEZIL HCL 5 MG TABLET (ARICEPT) GT SCH (22:22)
[2022-04-06] MEDS: ACETAMINOPHEN 650 MG/20.3 ML UDC GT PRN (22:23)
[2022-04-06] MEDS: MIRTAZAPINE 15 MG TABLET GT SCH (22:23)
[2022-04-07] VITALS: BP_SYST 103
[2022-04-07] MEDS: NORMAL SALINE 5 ML DISP.SYRIN IVF SCH ×3 (05:29→21:00)
[2022-04-07] MEDS: metroNIDAZOLE 250 mg/NS 50 ML IV SCH ×3 (05:29→21:00)
[2022-04-07] MEDS: INSULIN REGULAR, HUMAN 100 UNITS/ML, 3 ML VIAL (humuLIN R) SUBCUT PRN ×3 (05:40→21:01)
[2022-04-07 06:42] LABS: BASOPHILS # (AUTO) 0.1 K/uL (0.0-0.2); BASOPHILS % (AUTO) 0.5 % (0.0-2.0); EOSINOPHILS # (AUTO) 0.2 K/uL (0.0-0.4); HEMATOCRIT 32.8 % (36-48); HEMOGLOBIN 10.8 g/dL (12.0-16.0); LYMPHOCYTES # (AUTO) 2.7 K/uL (1.0-5.5); LYMPHOCYTES % (AUTO) 24.1 % (20.5-51.5); MEAN CORPUSCULAR HEMOGLOBIN 29 pg (27-31); MEAN CORPUSCULAR HGB CONC 33 % (32-36); MEAN CORPUSCULAR VOLUME 88 fL (79.0-98.0); MONOCYTES # (AUTO) 1.1 K/uL (0.0-1.0); MONOCYTES % (AUTO) 9.9 % (1.7-9.3); NEUTROPHILS # (AUTO) 7.1 K/uL (1.8-7.7); NEUTROPHILS % (AUTO) 63.5 % (40.0-70.0); PLATELET COUNT (AUTO) 345 K/uL (130-430); RED BLOOD CELL COUNT(AUTO) 3.72 MIL/uL (4.2-6.2); RED CELL DISTRIBUTION WIDTH 20.1 % (9.0-15.0); WHITE BLOOD COUNT (AUTO) 11.2 K/uL (4.8-10.8)
[2022-04-07 06:58] LABS: C-REACTIVE PROTEIN QUANT 6.4 mg/dL (0-0.5); CALCIUM 10.6 mg/dL (8.4-11.0); CREATININE 3.01 mg/dL (0.55-1.30)
[2022-04-07 07:51] LABS: ERYTHROCYTE SEDIMENTATION RATE 66 MM/HR (0-20)
[2022-04-07] MEDS: amLODIPine BESYLATE 10 MG TABLET GT SCH (09:00)
[2022-04-07] MEDS: CARVEDILOL 6.25 MG TABLET (COREG) GT SCH (09:00)
[2022-04-07] MEDS: INSULIN GLARGINE 100 UNITS/ML, 10 ML VIAL SUBCUT SCH (10:31)
[2022-04-07] MEDS: ASPIRIN 81 MG TAB.CHEW GT SCH (10:32)
[2022-04-07] MEDS: ERTAPENEM SODIUM 0.5 GM in NS 50 ML IV SCH (12:21)
[2022-04-07 13:09] VITALS: BP_SYST 98
[2022-04-07 16:00] VITALS: BP_SYST 110
[2022-04-07 20:30] VITALS: BP_SYST 87
[2022-04-07] MEDS: MIRTAZAPINE 15 MG TABLET GT SCH (20:59)
[2022-04-07] MEDS: NS 500 ML IV PRN (20:59)
[2022-04-07] MEDS: DONEPEZIL HCL 5 MG TABLET (ARICEPT) GT SCH (20:59)
[2022-04-07 22:40] VITALS: BP_SYST 96
[2022-04-08] VITALS: BP_SYST 95
[2022-04-08] MEDS: NORMAL SALINE 5 ML DISP.SYRIN IVF SCH ×3 (06:13→21:36)
[2022-04-08] MEDS: metroNIDAZOLE 250 mg/NS 50 ML IV SCH ×3 (06:13→21:35)
[2022-04-08] MEDS: INSULIN REGULAR, HUMAN 100 UNITS/ML, 3 ML VIAL (humuLIN R) SUBCUT PRN ×3 (06:15→21:40)
[2022-04-08 07:18] LABS: BASOPHILS # (AUTO) 0.1 K/uL (0.0-0.2); BASOPHILS % (AUTO) 0.5 % (0.0-2.0); EOSINOPHILS # (AUTO) 0.2 K/uL (0.0-0.4); EOSINOPHILS % (AUTO) 1.8 % (0.0-4.0); HEMATOCRIT 30.4 % (36-48); HEMOGLOBIN 9.7 g/dL (12.0-16.0); LYMPHOCYTES % (AUTO) 15.1 % (20.5-51.5); MEAN CORPUSCULAR HEMOGLOBIN 29 pg (27-31); MEAN CORPUSCULAR HGB CONC 32 % (32-36); MEAN CORPUSCULAR VOLUME 90 fL (79.0-98.0); MONOCYTES # (AUTO) 0.8 K/uL (0.0-1.0); MONOCYTES % (AUTO) 6.5 % (1.7-9.3); NEUTROPHILS % (AUTO) 76.1 % (40.0-70.0); PLATELET COUNT (AUTO) 312 K/uL (130-430); RED BLOOD CELL COUNT(AUTO) 3.39 MIL/uL (4.2-6.2); RED CELL DISTRIBUTION WIDTH 19.9 % (9.0-15.0); WHITE BLOOD COUNT (AUTO) 13.1 K/uL (4.8-10.8)
[2022-04-08 08:37] LABS: C-REACTIVE PROTEIN QUANT 5.1 mg/dL (0-0.5); CALCIUM 10.8 mg/dL (8.4-11.0); CREATININE 4.76 mg/dL (0.55-1.30); PHOSPHORUS 3.9 mg/dL (2.7-4.5)
[2022-04-08 08:52] LABS: ERYTHROCYTE SEDIMENTATION RATE 106 MM/HR (0-20)
[2022-04-08] MEDS: amLODIPine BESYLATE 10 MG TABLET GT SCH (09:00)
[2022-04-08] MEDS: CARVEDILOL 6.25 MG TABLET (COREG) GT SCH (09:00)
[2022-04-08] MEDS: ASPIRIN 81 MG TAB.CHEW GT SCH (09:15)
[2022-04-08] MEDS: INSULIN GLARGINE 100 UNITS/ML, 10 ML VIAL SUBCUT SCH (09:18)
[2022-04-08] MEDS: ERTAPENEM SODIUM 0.5 GM in NS 50 ML IV SCH (11:51)
[2022-04-08 12:29] VITALS: BP_SYST 99
[2022-04-08 16:25] VITALS: BP_SYST 96
[2022-04-08] MEDS: EPOETIN ALFA-EPBX 3,000 UNITS/ML VIAL SUBCUT SCH (17:48)
[2022-04-08 20:00] VITALS: BP_SYST 95
[2022-04-08] MEDS: MIRTAZAPINE 15 MG TABLET GT SCH (21:35)
[2022-04-08] MEDS: DONEPEZIL HCL 5 MG TABLET (ARICEPT) GT SCH (21:35)
[2022-04-09] VITALS (7 sets, daily range): BP systolic 87–113
[2022-04-09] MEDS: metroNIDAZOLE 250 mg/NS 50 ML IV SCH ×3 (05:52→21:27)
[2022-04-09] MEDS: NORMAL SALINE 5 ML DISP.SYRIN IVF SCH ×3 (05:52→21:28)
[2022-04-09] MEDS: INSULIN REGULAR, HUMAN 100 UNITS/ML, 3 ML VIAL (humuLIN R) SUBCUT PRN ×4 (05:55→21:25)
[2022-04-09 06:42] LABS: BASOPHILS % (AUTO) 0.3 % (0.0-2.0); EOSINOPHILS # (AUTO) 0.1 K/uL (0.0-0.4); HEMATOCRIT 28.8 % (36-48); HEMOGLOBIN 9.3 g/dL (12.0-16.0); LYMPHOCYTES # (AUTO) 2.8 K/uL (1.0-5.5); LYMPHOCYTES % (AUTO) 22.9 % (20.5-51.5); MEAN CORPUSCULAR HEMOGLOBIN 29 pg (27-31); MEAN CORPUSCULAR HGB CONC 32 % (32-36); MEAN CORPUSCULAR VOLUME 89 fL (79.0-98.0); MONOCYTES # (AUTO) 1.1 K/uL (0.0-1.0); NEUTROPHILS # (AUTO) 8.2 K/uL (1.8-7.7); NEUTROPHILS % (AUTO) 66.8 % (40.0-70.0); PLATELET COUNT (AUTO) 290 K/uL (130-430); RED BLOOD CELL COUNT(AUTO) 3.22 MIL/uL (4.2-6.2); RED CELL DISTRIBUTION WIDTH 19.1 % (9.0-15.0); WHITE BLOOD COUNT (AUTO) 12.2 K/uL (4.8-10.8)
[2022-04-09 07:09] LABS: C-REACTIVE PROTEIN QUANT 4.7 mg/dL (0-0.5); CALCIUM 10.6 mg/dL (8.4-11.0); CREATININE 3.22 mg/dL (0.55-1.30); PHOSPHORUS 3.5 mg/dL (2.7-4.5)
[2022-04-09] MEDS: amLODIPine BESYLATE 10 MG TABLET GT SCH (09:00)
[2022-04-09] MEDS: CARVEDILOL 6.25 MG TABLET (COREG) GT SCH (09:00)
[2022-04-09] MEDS: ASPIRIN 81 MG TAB.CHEW GT SCH (09:12)
[2022-04-09 10:05] LABS: ERYTHROCYTE SEDIMENTATION RATE 113 MM/HR (0-20)
[2022-04-09] MEDS: ERTAPENEM SODIUM 0.5 GM in NS 50 ML IV SCH (12:10)
[2022-04-09] MEDS: INSULIN GLARGINE 100 UNITS/ML, 10 ML VIAL SUBCUT SCH (12:19)
[2022-04-09] MEDS: NS 500 ML IV PRN (15:06)
[2022-04-09] MEDS: MIRTAZAPINE 15 MG TABLET GT SCH (21:27)
[2022-04-09] MEDS: DONEPEZIL HCL 5 MG TABLET (ARICEPT) GT SCH (21:28)
[2022-04-10] VITALS: BP_SYST 105
[2022-04-10] MEDS: NORMAL SALINE 5 ML DISP.SYRIN IVF SCH ×3 (05:53→23:01)
[2022-04-10] MEDS: metroNIDAZOLE 250 mg/NS 50 ML IV SCH ×3 (05:53→23:01)
[2022-04-10] MEDS: INSULIN REGULAR, HUMAN 100 UNITS/ML, 3 ML VIAL (humuLIN R) SUBCUT PRN ×2 (05:58→12:26)
[2022-04-10 08:02] LABS: BASOPHILS # (AUTO) 0.1 K/uL (0.0-0.2); BASOPHILS % (AUTO) 0.5 % (0.0-2.0); EOSINOPHILS # (AUTO) 0.4 K/uL (0.0-0.4); EOSINOPHILS % (AUTO) 2.8 % (0.0-4.0); HEMATOCRIT 28.5 % (36-48); HEMOGLOBIN 9.2 g/dL (12.0-16.0); LYMPHOCYTES # (AUTO) 3.2 K/uL (1.0-5.5); LYMPHOCYTES % (AUTO) 25.3 % (20.5-51.5); MEAN CORPUSCULAR HEMOGLOBIN 29 pg (27-31); MEAN CORPUSCULAR HGB CONC 32 % (32-36); MEAN CORPUSCULAR VOLUME 90 fL (79.0-98.0); MONOCYTES # (AUTO) 1.2 K/uL (0.0-1.0); MONOCYTES % (AUTO) 9.7 % (1.7-9.3); NEUTROPHILS # (AUTO) 7.9 K/uL (1.8-7.7); NEUTROPHILS % (AUTO) 61.7 % (40.0-70.0); PLATELET COUNT (AUTO) 265 K/uL (130-430); RED BLOOD CELL COUNT(AUTO) 3.18 MIL/uL (4.2-6.2); RED CELL DISTRIBUTION WIDTH 19.1 % (9.0-15.0); WHITE BLOOD COUNT (AUTO) 12.7 K/uL (4.8-10.8)
[2022-04-10 08:44] LABS: ALBUMIN 2.9 g/dL (3.4-4.8); C-REACTIVE PROTEIN QUANT 7.9 mg/dL (0-0.5); CALCIUM 10.6 mg/dL (8.4-11.0); CREATININE 4.7 mg/dL (0.55-1.30); PHOSPHORUS 3.8 mg/dL (2.7-4.5); TOTAL BILIRUBIN 0.2 mg/dL (0.0-1.0)
[2022-04-10 08:53] LABS: ERYTHROCYTE SEDIMENTATION RATE 119 MM/HR (0-20)
[2022-04-10] MEDS: ASPIRIN 81 MG TAB.CHEW GT SCH (08:58)
[2022-04-10] MEDS: INSULIN GLARGINE 100 UNITS/ML, 10 ML VIAL SUBCUT SCH (08:59)
[2022-04-10] MEDS: CARVEDILOL 6.25 MG TABLET (COREG) GT SCH (08:59)
[2022-04-10] MEDS: amLODIPine BESYLATE 10 MG TABLET GT SCH (09:00)
[2022-04-10 12:00] VITALS: BP_SYST 102; BP_SYST 113
[2022-04-10] MEDS: ERTAPENEM SODIUM 0.5 GM in NS 50 ML IV SCH (12:21)
[2022-04-10] MEDS: EPOETIN ALFA-EPBX 3,000 UNITS/ML VIAL SUBCUT SCH (19:11)
[2022-04-10] MEDS ORDERED: EPOETIN ALFA 10,000 UNITS/ML VIAL ONE (19:14)
[2022-04-10] MEDS: MIRTAZAPINE 15 MG TABLET GT SCH (23:00)
[2022-04-10] MEDS: DONEPEZIL HCL 5 MG TABLET (ARICEPT) GT SCH (23:00)
[2022-04-11] VITALS (7 sets, daily range): BP systolic 82–114
[2022-04-11 07:15] LABS: C-REACTIVE PROTEIN QUANT 7.1 mg/dL (0-0.5); CREATININE 2.81 mg/dL (0.55-1.30); PHOSPHORUS 3.2 mg/dL (2.7-4.5)
[2022-04-11 08:30] LABS: ERYTHROCYTE SEDIMENTATION RATE 119 MM/HR (0-20)
[2022-04-11] MEDS: ASPIRIN 81 MG TAB.CHEW GT SCH (08:34)
[2022-04-11] MEDS: CARVEDILOL 6.25 MG TABLET (COREG) GT SCH (08:35)
[2022-04-11] MEDS: amLODIPine BESYLATE 10 MG TABLET GT SCH (08:35)
[2022-04-11] MEDS: NORMAL SALINE 5 ML DISP.SYRIN IVF SCH ×3 (08:36→21:04)
[2022-04-11] MEDS: metroNIDAZOLE 250 mg/NS 50 ML IV SCH ×3 (08:36→21:14)
[2022-04-11 08:38] LABS: BASOPHILS % (AUTO) 0.4 % (0.0-2.0); EOSINOPHILS # (AUTO) 0.2 K/uL (0.0-0.4); EOSINOPHILS % (AUTO) 2.2 % (0.0-4.0); HEMATOCRIT 27.1 % (36-48); HEMOGLOBIN 8.9 g/dL (12.0-16.0); LYMPHOCYTES # (AUTO) 2.3 K/uL (1.0-5.5); LYMPHOCYTES % (AUTO) 20.9 % (20.5-51.5); MEAN CORPUSCULAR HEMOGLOBIN 29 pg (27-31); MEAN CORPUSCULAR HGB CONC 33 % (32-36); MEAN CORPUSCULAR VOLUME 89 fL (79.0-98.0); MONOCYTES # (AUTO) 0.8 K/uL (0.0-1.0); MONOCYTES % (AUTO) 7.1 % (1.7-9.3); NEUTROPHILS # (AUTO) 7.7 K/uL (1.8-7.7); NEUTROPHILS % (AUTO) 69.4 % (40.0-70.0); PLATELET COUNT (AUTO) 290 K/uL (130-430); RED BLOOD CELL COUNT(AUTO) 3.05 MIL/uL (4.2-6.2); RED CELL DISTRIBUTION WIDTH 18.9 % (9.0-15.0); WHITE BLOOD COUNT (AUTO) 11.1 K/uL (4.8-10.8)
[2022-04-11] MEDS: INSULIN GLARGINE 100 UNITS/ML, 10 ML VIAL SUBCUT SCH (08:41)
[2022-04-11] MEDS ORDERED: NACL 0.9% 1,000 ML IV ONE (20:15)
[2022-04-11] MEDS: MIRTAZAPINE 15 MG TABLET GT SCH (21:15)
[2022-04-11] MEDS: DONEPEZIL HCL 5 MG TABLET (ARICEPT) GT SCH (21:15)
[2022-04-12 01:20] VITALS: BP_SYST 106
[2022-04-12] MEDS: NORMAL SALINE 5 ML DISP.SYRIN IVF SCH ×3 (05:20→20:46)
[2022-04-12] MEDS: metroNIDAZOLE 250 mg/NS 50 ML IV SCH ×3 (06:11→20:45)
[2022-04-12 07:23] LABS: C-REACTIVE PROTEIN QUANT 4.4 mg/dL (0-0.5); CALCIUM 9.5 mg/dL (8.4-11.0); CREATININE 3.96 mg/dL (0.55-1.30); PHOSPHORUS 3.5 mg/dL (2.7-4.5)
[2022-04-12 08:47] LABS: BASOPHILS % (AUTO) 0.4 % (0.0-2.0); EOSINOPHILS # (AUTO) 0.4 K/uL (0.0-0.4); EOSINOPHILS % (AUTO) 4.2 % (0.0-4.0); HEMATOCRIT 25.6 % (36-48); HEMOGLOBIN 8.5 g/dL (12.0-16.0); LYMPHOCYTES # (AUTO) 2.2 K/uL (1.0-5.5); LYMPHOCYTES % (AUTO) 21.2 % (20.5-51.5); MEAN CORPUSCULAR HEMOGLOBIN 30 pg (27-31); MEAN CORPUSCULAR HGB CONC 33 % (32-36); MEAN CORPUSCULAR VOLUME 90 fL (79.0-98.0); MONOCYTES # (AUTO) 0.8 K/uL (0.0-1.0); MONOCYTES % (AUTO) 7.7 % (1.7-9.3); NEUTROPHILS # (AUTO) 6.9 K/uL (1.8-7.7); NEUTROPHILS % (AUTO) 66.5 % (40.0-70.0); PLATELET COUNT (AUTO) 290 K/uL (130-430); RED BLOOD CELL COUNT(AUTO) 2.86 MIL/uL (4.2-6.2); RED CELL DISTRIBUTION WIDTH 18.6 % (9.0-15.0); WHITE BLOOD COUNT (AUTO) 10.4 K/uL (4.8-10.8)
[2022-04-12] MEDS: ASPIRIN 81 MG TAB.CHEW GT SCH ×2 (09:00→09:32)
[2022-04-12] MEDS: amLODIPine BESYLATE 10 MG TABLET GT SCH (09:00)
[2022-04-12] MEDS: CARVEDILOL 6.25 MG TABLET (COREG) GT SCH (09:00)
[2022-04-12] MEDS: INSULIN GLARGINE 100 UNITS/ML, 10 ML VIAL SUBCUT SCH (09:37)
[2022-04-12 09:39] LABS: ERYTHROCYTE SEDIMENTATION RATE 116 MM/HR (0-20)
[2022-04-12] MEDS: INSULIN REGULAR, HUMAN 100 UNITS/ML, 3 ML VIAL (humuLIN R) SUBCUT PRN (11:39)
[2022-04-12 11:50] VITALS: BP_SYST 106
[2022-04-12] MEDS ORDERED: PHYTONADIONE 10 MG/ML AMP SUBCUT ONE (13:45)
[2022-04-12] MEDS ORDERED: PHYTONADIONE 10 MG/ML AMP IM ONE (14:00)
[2022-04-12 16:48] VITALS: BP_SYST 104
[2022-04-12] MEDS: ACETAMINOPHEN 650 MG/20.3 ML UDC GT PRN (18:23)
[2022-04-12 20:00] VITALS: BP_SYST 103
[2022-04-12] MEDS: DONEPEZIL HCL 5 MG TABLET (ARICEPT) GT SCH (20:47)
[2022-04-12] MEDS: MIRTAZAPINE 15 MG TABLET GT SCH (20:47)
[2022-04-13 00:41] VITALS: BP_SYST 109
[2022-04-13] MEDS: NORMAL SALINE 5 ML DISP.SYRIN IVF SCH ×3 (05:51→20:34)
[2022-04-13] MEDS: INSULIN REGULAR, HUMAN 100 UNITS/ML, 3 ML VIAL (humuLIN R) SUBCUT PRN ×4 (05:58→20:45)
[2022-04-13 07:11] LABS: BASOPHILS # (AUTO) 0.1 K/uL (0.0-0.2); BASOPHILS % (AUTO) 0.6 % (0.0-2.0); EOSINOPHILS # (AUTO) 0.3 K/uL (0.0-0.4); EOSINOPHILS % (AUTO) 2.3 % (0.0-4.0); HEMATOCRIT 22.4 % (36-48); HEMOGLOBIN 7.4 g/dL (12.0-16.0); LYMPHOCYTES # (AUTO) 2.6 K/uL (1.0-5.5); LYMPHOCYTES % (AUTO) 19.3 % (20.5-51.5); MEAN CORPUSCULAR HEMOGLOBIN 30 pg (27-31); MEAN CORPUSCULAR HGB CONC 33 % (32-36); MEAN CORPUSCULAR VOLUME 90 fL (79.0-98.0); MONOCYTES # (AUTO) 0.9 K/uL (0.0-1.0); MONOCYTES % (AUTO) 6.9 % (1.7-9.3); NEUTROPHILS # (AUTO) 9.5 K/uL (1.8-7.7); NEUTROPHILS % (AUTO) 70.9 % (40.0-70.0); PLATELET COUNT (AUTO) 293 K/uL (130-430); RED BLOOD CELL COUNT(AUTO) 2.49 MIL/uL (4.2-6.2); RED CELL DISTRIBUTION WIDTH 18.9 % (9.0-15.0); WHITE BLOOD COUNT (AUTO) 13.4 K/uL (4.8-10.8)
[2022-04-13 08:00] VITALS: BP_SYST 119
[2022-04-13 08:42] LABS: ALBUMIN 2.8 g/dL (3.4-4.8); C-REACTIVE PROTEIN QUANT 3.9 mg/dL (0-0.5); CALCIUM 10.1 mg/dL (8.4-11.0); CREATININE 5.06 mg/dL (0.55-1.30); PHOSPHORUS 3.4 mg/dL (2.7-4.5); TOTAL BILIRUBIN 0.3 mg/dL (0.0-1.0)
[2022-04-13] MEDS: CARVEDILOL 6.25 MG TABLET (COREG) GT SCH (09:00)
[2022-04-13] MEDS: amLODIPine BESYLATE 10 MG TABLET GT SCH (09:00)
[2022-04-13] MEDS: ASPIRIN 81 MG TAB.CHEW GT SCH (09:00)
[2022-04-13 10:54] LABS: ERYTHROCYTE SEDIMENTATION RATE 123 MM/HR (0-20)
[2022-04-13 12:00] VITALS: BP_SYST 132
[2022-04-13] MEDS: INSULIN GLARGINE 100 UNITS/ML, 10 ML VIAL SUBCUT SCH (14:00)
[2022-04-13 16:00] VITALS: BP_SYST 128
[2022-04-13] MEDS: ACETAMINOPHEN 650 MG/20.3 ML UDC GT PRN (17:27)
[2022-04-13] MEDS: EPOETIN ALFA-EPBX 3,000 UNITS/ML VIAL SUBCUT SCH (18:04)
[2022-04-13 20:00] VITALS: BP_SYST 106
[2022-04-13] MEDS: MIRTAZAPINE 15 MG TABLET GT SCH (20:34)
[2022-04-13] MEDS: DONEPEZIL HCL 5 MG TABLET (ARICEPT) GT SCH (20:35)
[2022-04-14 00:41] VITALS: BP_SYST 96
[2022-04-14] MEDS: NORMAL SALINE 5 ML DISP.SYRIN IVF SCH ×3 (06:00→21:06)
[2022-04-14 07:17] LABS: BASOPHILS % (AUTO) 0.2 % (0.0-2.0); EOSINOPHILS # (AUTO) 0.3 K/uL (0.0-0.4); EOSINOPHILS % (AUTO) 1.7 % (0.0-4.0); HEMATOCRIT 23.9 % (36-48); HEMOGLOBIN 7.7 g/dL (12.0-16.0); LYMPHOCYTES # (AUTO) 3.3 K/uL (1.0-5.5); LYMPHOCYTES % (AUTO) 19.6 % (20.5-51.5); MEAN CORPUSCULAR HEMOGLOBIN 29 pg (27-31); MEAN CORPUSCULAR HGB CONC 32 % (32-36); MEAN CORPUSCULAR VOLUME 90 fL (79.0-98.0); MONOCYTES # (AUTO) 1.6 K/uL (0.0-1.0); MONOCYTES % (AUTO) 9.8 % (1.7-9.3); NEUTROPHILS # (AUTO) 11.5 K/uL (1.8-7.7); NEUTROPHILS % (AUTO) 68.7 % (40.0-70.0); PLATELET COUNT (AUTO) 309 K/uL (130-430); RED BLOOD CELL COUNT(AUTO) 2.66 MIL/uL (4.2-6.2); RED CELL DISTRIBUTION WIDTH 19.3 % (9.0-15.0); WHITE BLOOD COUNT (AUTO) 16.8 K/uL (4.8-10.8)
[2022-04-14 07:32] LABS: CALCIUM 9.8 mg/dL (8.4-11.0); CREATININE 3.48 mg/dL (0.55-1.30); PHOSPHORUS 4.1 mg/dL (2.7-4.5)
[2022-04-14 08:00] VITALS: BP_SYST 114
[2022-04-14] MEDS: amLODIPine BESYLATE 10 MG TABLET GT SCH (09:00)
[2022-04-14] MEDS: CARVEDILOL 6.25 MG TABLET (COREG) GT SCH (09:00)
[2022-04-14] MEDS: ASPIRIN 81 MG TAB.CHEW GT SCH (09:00)
[2022-04-14] MEDS: INSULIN GLARGINE 100 UNITS/ML, 10 ML VIAL SUBCUT SCH (09:23)
[2022-04-14] MEDS: FLUCONAZOLE 200 mg/ NS 100 ML IV SCH (11:00)
[2022-04-14 12:00] VITALS: BP_SYST 135
[2022-04-14 16:00] VITALS: BP_SYST 98
[2022-04-14] MEDS: INSULIN REGULAR, HUMAN 100 UNITS/ML, 3 ML VIAL (humuLIN R) SUBCUT PRN ×2 (17:22→21:16)
[2022-04-14] MEDS: ACETAMINOPHEN 650 MG/20.3 ML UDC GT PRN (18:05)
[2022-04-14 20:00] VITALS: BP_SYST 94
[2022-04-14] MEDS: DONEPEZIL HCL 5 MG TABLET (ARICEPT) GT SCH (21:03)
[2022-04-14] MEDS: MIRTAZAPINE 15 MG TABLET GT SCH (21:04)
[2022-04-15 00:32] VITALS: BP_SYST 103
[2022-04-15] MEDS: NORMAL SALINE 5 ML DISP.SYRIN IVF SCH ×3 (06:02→21:42)
[2022-04-15] MEDS: INSULIN REGULAR, HUMAN 100 UNITS/ML, 3 ML VIAL (humuLIN R) SUBCUT PRN ×3 (06:03→18:03)
[2022-04-15 07:50] LABS: C-REACTIVE PROTEIN QUANT 4.3 mg/dL (0-0.5); CALCIUM 9.7 mg/dL (8.4-11.0); CREATININE 4.8 mg/dL (0.55-1.30); PHOSPHORUS 4.3 mg/dL (2.7-4.5)
[2022-04-15 08:00] VITALS: BP_SYST 117
[2022-04-15 08:54] LABS: PROTHROMBIN TIME 9.8 SECS (9.5-12.5)
[2022-04-15] MEDS: ASPIRIN 81 MG TAB.CHEW GT SCH (09:00)
[2022-04-15] MEDS: amLODIPine BESYLATE 10 MG TABLET GT SCH (09:00)
[2022-04-15] MEDS: CARVEDILOL 6.25 MG TABLET (COREG) GT SCH (09:00)
[2022-04-15] MEDS: INSULIN GLARGINE 100 UNITS/ML, 10 ML VIAL SUBCUT SCH (09:12)
[2022-04-15 09:17] LABS: BASOPHILS % (AUTO) 0.3 % (0.0-2.0); EOSINOPHILS # (AUTO) 0.5 K/uL (0.0-0.4); EOSINOPHILS % (AUTO) 3.4 % (0.0-4.0); LYMPHOCYTES # (AUTO) 2.7 K/uL (1.0-5.5); LYMPHOCYTES % (AUTO) 19.7 % (20.5-51.5); MEAN CORPUSCULAR HEMOGLOBIN 29 pg (27-31); MEAN CORPUSCULAR HGB CONC 32 % (32-36); MEAN CORPUSCULAR VOLUME 90 fL (79.0-98.0); MONOCYTES # (AUTO) 1.1 K/uL (0.0-1.0); NEUTROPHILS # (AUTO) 9.4 K/uL (1.8-7.7); NEUTROPHILS % (AUTO) 68.6 % (40.0-70.0); PLATELET COUNT (AUTO) 327 K/uL (130-430); RED BLOOD CELL COUNT(AUTO) 2.32 MIL/uL (4.2-6.2); RED CELL DISTRIBUTION WIDTH 18.9 % (9.0-15.0); WHITE BLOOD COUNT (AUTO) 13.7 K/uL (4.8-10.8)
[2022-04-15 09:49] LABS: HEMATOCRIT 20.8 % (36-48); HEMOGLOBIN 6.7 g/dL (12.0-16.0)
[2022-04-15 10:11] LABS: ERYTHROCYTE SEDIMENTATION RATE 129 MM/HR (0-20)
[2022-04-15 11:15] VITALS: BP_SYST 139
[2022-04-15] MEDS: FLUCONAZOLE 200 mg/ NS 100 ML IV SCH (11:22)
[2022-04-15] MEDS: EPOETIN ALFA-EPBX 3,000 UNITS/ML VIAL SUBCUT SCH (16:58)
[2022-04-15 17:01] VITALS: BP_SYST 135
[2022-04-15 20:00] VITALS: BP_SYST 100
[2022-04-15] MEDS: ACETAMINOPHEN 650 MG/20.3 ML UDC GT PRN (21:39)
[2022-04-15] MEDS: DONEPEZIL HCL 5 MG TABLET (ARICEPT) GT SCH (21:40)
[2022-04-15] MEDS: MIRTAZAPINE 15 MG TABLET GT SCH (21:40)
[2022-04-16 00:40] VITALS: BP_SYST 115
[2022-04-16] MEDS: NORMAL SALINE 5 ML DISP.SYRIN IVF SCH ×3 (06:22→22:00)
[2022-04-16] MEDS: INSULIN REGULAR, HUMAN 100 UNITS/ML, 3 ML VIAL (humuLIN R) SUBCUT PRN ×3 (06:41→21:47)
[2022-04-16 08:00] VITALS: BP_SYST 90
[2022-04-16] MEDS: INSULIN GLARGINE 100 UNITS/ML, 10 ML VIAL SUBCUT SCH (08:50)
[2022-04-16 08:54] LABS: BASOPHILS % (AUTO) 0.3 % (0.0-2.0); EOSINOPHILS # (AUTO) 0.5 K/uL (0.0-0.4); EOSINOPHILS % (AUTO) 3.4 % (0.0-4.0); HEMATOCRIT 30.4 % (36-48); LYMPHOCYTES # (AUTO) 2.2 K/uL (1.0-5.5); LYMPHOCYTES % (AUTO) 16.6 % (20.5-51.5); MEAN CORPUSCULAR HEMOGLOBIN 29 pg (27-31); MEAN CORPUSCULAR HGB CONC 33 % (32-36); MONOCYTES % (AUTO) 7.6 % (1.7-9.3); NEUTROPHILS # (AUTO) 9.6 K/uL (1.8-7.7); NEUTROPHILS % (AUTO) 72.1 % (40.0-70.0); PLATELET COUNT (AUTO) 357 K/uL (130-430); RED BLOOD CELL COUNT(AUTO) 3.45 MIL/uL (4.2-6.2); RED CELL DISTRIBUTION WIDTH 16.8 % (9.0-15.0); WHITE BLOOD COUNT (AUTO) 13.4 K/uL (4.8-10.8)
[2022-04-16] MEDS: amLODIPine BESYLATE 10 MG TABLET GT SCH (08:54)
[2022-04-16] MEDS: ASPIRIN 81 MG TAB.CHEW GT SCH (08:54)
[2022-04-16] MEDS: CARVEDILOL 6.25 MG TABLET (COREG) GT SCH (08:54)
[2022-04-16 09:05] LABS: CALCIUM 9.4 mg/dL (8.4-11.0); CREATININE 3.72 mg/dL (0.55-1.30); PHOSPHORUS 3.8 mg/dL (2.7-4.5)
[2022-04-16 09:07] LABS: TOTAL IRON BIND. CAPACITY 152 ug/dL (250-450)
[2022-04-16 10:36] LABS: MEAN CORPUSCULAR VOLUME 88 fL (79.0-98.0)
[2022-04-16] MEDS: FLUCONAZOLE 200 mg/ NS 100 ML IV SCH (11:31)
[2022-04-16 12:23] VITALS: BP_SYST 104
[2022-04-16 16:00] VITALS: BP_SYST 92
[2022-04-16] MEDS: ACETAMINOPHEN 650 MG/20.3 ML UDC GT PRN (18:33)
[2022-04-16] MEDS: DONEPEZIL HCL 5 MG TABLET (ARICEPT) GT SCH (21:30)
[2022-04-16] MEDS: MIRTAZAPINE 15 MG TABLET GT SCH (21:31)
[2022-04-17] VITALS: BP_SYST 133
[2022-04-17] MEDS: NORMAL SALINE 5 ML DISP.SYRIN IVF SCH ×3 (07:01→22:04)
[2022-04-17] MEDS: INSULIN REGULAR, HUMAN 100 UNITS/ML, 3 ML VIAL (humuLIN R) SUBCUT PRN ×2 (07:07→22:08)
[2022-04-17 08:00] VITALS: BP_SYST 130
[2022-04-17 08:06] LABS: FOLATE (FOLIC ACID) >20.0 ng/mL (>3.0)
[2022-04-17 08:17] LABS: ALBUMIN 2.6 g/dL (3.4-4.8); C-REACTIVE PROTEIN QUANT 3.5 mg/dL (0-0.5); CALCIUM 10.3 mg/dL (8.4-11.0); CREATININE 4.58 mg/dL (0.55-1.30); PHOSPHORUS 4.5 mg/dL (2.7-4.5); TOTAL BILIRUBIN 0.1 mg/dL (0.0-1.0)
[2022-04-17 08:24] LABS: BASOPHILS # (AUTO) 0.1 K/uL (0.0-0.2); BASOPHILS % (AUTO) 0.5 % (0.0-2.0); EOSINOPHILS # (AUTO) 0.4 K/uL (0.0-0.4); EOSINOPHILS % (AUTO) 3.1 % (0.0-4.0); HEMATOCRIT 29.5 % (36-48); HEMOGLOBIN 9.6 g/dL (12.0-16.0); LYMPHOCYTES # (AUTO) 2.8 K/uL (1.0-5.5); LYMPHOCYTES % (AUTO) 20.2 % (20.5-51.5); MEAN CORPUSCULAR HEMOGLOBIN 29 pg (27-31); MEAN CORPUSCULAR HGB CONC 32 % (32-36); MEAN CORPUSCULAR VOLUME 89 fL (79.0-98.0); MONOCYTES # (AUTO) 1.1 K/uL (0.0-1.0); MONOCYTES % (AUTO) 7.8 % (1.7-9.3); NEUTROPHILS # (AUTO) 9.4 K/uL (1.8-7.7); NEUTROPHILS % (AUTO) 68.4 % (40.0-70.0); PLATELET COUNT (AUTO) 379 K/uL (130-430); RED BLOOD CELL COUNT(AUTO) 3.31 MIL/uL (4.2-6.2); RED CELL DISTRIBUTION WIDTH 17.3 % (9.0-15.0); WHITE BLOOD COUNT (AUTO) 13.7 K/uL (4.8-10.8)
[2022-04-17] MEDS: ASPIRIN 81 MG TAB.CHEW GT SCH (09:00)
[2022-04-17] MEDS: amLODIPine BESYLATE 10 MG TABLET GT SCH (09:00)
[2022-04-17] MEDS: CARVEDILOL 6.25 MG TABLET (COREG) GT SCH (09:00)
[2022-04-17] MEDS: INSULIN GLARGINE 100 UNITS/ML, 10 ML VIAL SUBCUT SCH (09:54)
[2022-04-17] MEDS: ACETAMINOPHEN 650 MG/20.3 ML UDC GT PRN ×2 (11:09→19:21)
[2022-04-17 11:11] LABS: ERYTHROCYTE SEDIMENTATION RATE 111 MM/HR (0-20)
[2022-04-17] MEDS: FLUCONAZOLE 200 mg/ NS 100 ML IV SCH (11:28)
[2022-04-17 11:47] LABS: FERRITIN 1175 ng/mL (15-150)
[2022-04-17 12:00] VITALS: BP_SYST 113
[2022-04-17 16:00] VITALS: BP_SYST 98
[2022-04-17] MEDS: EPOETIN ALFA-EPBX 3,000 UNITS/ML VIAL SUBCUT SCH (17:02)
[2022-04-17 19:00] VITALS: BP_SYST 102
[2022-04-17] MEDS: FOLIC ACID 1 MG TABLET PO SCH (19:24)
[2022-04-17 20:00] VITALS: BP_SYST 102
[2022-04-17] MEDS: DONEPEZIL HCL 5 MG TABLET (ARICEPT) GT SCH (21:59)
[2022-04-17] MEDS: MIRTAZAPINE 15 MG TABLET GT SCH (21:59)
[2022-04-18 01:23] VITALS: BP_SYST 136
[2022-04-18] MEDS: NORMAL SALINE 5 ML DISP.SYRIN IVF SCH ×3 (05:05→21:14)
[2022-04-18] MEDS: INSULIN REGULAR, HUMAN 100 UNITS/ML, 3 ML VIAL (humuLIN R) SUBCUT PRN ×3 (05:19→22:24)
[2022-04-18 07:54] LABS: BASOPHILS % (AUTO) 0.3 % (0.0-2.0); EOSINOPHILS # (AUTO) 0.4 K/uL (0.0-0.4); EOSINOPHILS % (AUTO) 3.9 % (0.0-4.0); HEMATOCRIT 25.8 % (36-48); HEMOGLOBIN 8.6 g/dL (12.0-16.0); LYMPHOCYTES # (AUTO) 2.2 K/uL (1.0-5.5); LYMPHOCYTES % (AUTO) 20.4 % (20.5-51.5); MEAN CORPUSCULAR HEMOGLOBIN 30 pg (27-31); MEAN CORPUSCULAR HGB CONC 33 % (32-36); MEAN CORPUSCULAR VOLUME 90 fL (79.0-98.0); MONOCYTES # (AUTO) 0.9 K/uL (0.0-1.0); MONOCYTES % (AUTO) 8.3 % (1.7-9.3); NEUTROPHILS # (AUTO) 7.1 K/uL (1.8-7.7); NEUTROPHILS % (AUTO) 67.1 % (40.0-70.0); PLATELET COUNT (AUTO) 375 K/uL (130-430); RED BLOOD CELL COUNT(AUTO) 2.88 MIL/uL (4.2-6.2); RED CELL DISTRIBUTION WIDTH 17.2 % (9.0-15.0); WHITE BLOOD COUNT (AUTO) 10.6 K/uL (4.8-10.8)
[2022-04-18 08:00] VITALS: BP_SYST 101
[2022-04-18 08:34] LABS: CALCIUM 9.5 mg/dL (8.4-11.0); CREATININE 3.53 mg/dL (0.55-1.30)
[2022-04-18 08:59] LABS: PHOSPHORUS 4.1 mg/dL (2.7-4.5)
[2022-04-18] MEDS: amLODIPine BESYLATE 10 MG TABLET GT SCH (09:00)
[2022-04-18] MEDS: CARVEDILOL 6.25 MG TABLET (COREG) GT SCH (09:00)
[2022-04-18] MEDS: FOLIC ACID 1 MG TABLET PO SCH (09:32)
[2022-04-18] MEDS: ACETAMINOPHEN 650 MG/20.3 ML UDC GT PRN ×2 (09:33→16:28)
[2022-04-18] MEDS: INSULIN GLARGINE 100 UNITS/ML, 10 ML VIAL SUBCUT SCH (09:36)
[2022-04-18 12:00] VITALS: BP_SYST 122
[2022-04-18] MEDS: FLUCONAZOLE 200 mg/ NS 100 ML IV SCH (12:59)
[2022-04-18 16:00] VITALS: BP_SYST 105
[2022-04-18 21:12] VITALS: BP_SYST 95
[2022-04-18] MEDS: DONEPEZIL HCL 5 MG TABLET (ARICEPT) GT SCH (22:14)
[2022-04-18] MEDS: MIRTAZAPINE 15 MG TABLET GT SCH (22:15)
[2022-04-19 00:36] VITALS: BP_SYST 110
[2022-04-19] MEDS: NORMAL SALINE 5 ML DISP.SYRIN IVF SCH ×3 (05:58→22:23)
[2022-04-19 07:49] LABS: BASOPHILS # (AUTO) 0.1 K/uL (0.0-0.2); BASOPHILS % (AUTO) 0.7 % (0.0-2.0); EOSINOPHILS # (AUTO) 0.4 K/uL (0.0-0.4); EOSINOPHILS % (AUTO) 3.2 % (0.0-4.0); HEMATOCRIT 27.3 % (36-48); LYMPHOCYTES # (AUTO) 2.4 K/uL (1.0-5.5); LYMPHOCYTES % (AUTO) 19.5 % (20.5-51.5); MEAN CORPUSCULAR HEMOGLOBIN 29 pg (27-31); MEAN CORPUSCULAR HGB CONC 33 % (32-36); MEAN CORPUSCULAR VOLUME 88 fL (79.0-98.0); MONOCYTES # (AUTO) 0.9 K/uL (0.0-1.0); NEUTROPHILS # (AUTO) 8.5 K/uL (1.8-7.7); NEUTROPHILS % (AUTO) 69.6 % (40.0-70.0); PLATELET COUNT (AUTO) 427 K/uL (130-430); RED CELL DISTRIBUTION WIDTH 17.4 % (9.0-15.0); WHITE BLOOD COUNT (AUTO) 12.3 K/uL (4.8-10.8)
[2022-04-19 08:00] VITALS: BP_SYST 148
[2022-04-19 08:51] LABS: C-REACTIVE PROTEIN QUANT 2.4 mg/dL (0-0.5); CALCIUM 9.8 mg/dL (8.4-11.0); CREATININE 4.54 mg/dL (0.55-1.30); PHOSPHORUS 4.8 mg/dL (2.7-4.5)
[2022-04-19] MEDS: amLODIPine BESYLATE 10 MG TABLET GT SCH (09:00)
[2022-04-19] MEDS: CARVEDILOL 6.25 MG TABLET (COREG) GT SCH (09:00)
[2022-04-19] MEDS: INSULIN GLARGINE 100 UNITS/ML, 10 ML VIAL SUBCUT SCH (09:03)
[2022-04-19] MEDS: FOLIC ACID 1 MG TABLET PO SCH (09:08)
[2022-04-19] MEDS: FLUCONAZOLE 200 mg/ NS 100 ML IV SCH (11:33)
[2022-04-19] MEDS: INSULIN REGULAR, HUMAN 100 UNITS/ML, 3 ML VIAL (humuLIN R) SUBCUT PRN (11:56)
[2022-04-19 12:00] VITALS: BP_SYST 100
[2022-04-19 14:05] LABS: ERYTHROCYTE SEDIMENTATION RATE 107 MM/HR (0-20)
[2022-04-19 16:00] VITALS: BP_SYST 130
[2022-04-19 20:30] VITALS: BP_SYST 112
[2022-04-19] MEDS: DONEPEZIL HCL 5 MG TABLET (ARICEPT) GT SCH (22:22)
[2022-04-19] MEDS: MIRTAZAPINE 15 MG TABLET GT SCH (22:23)
[2022-04-20 01:12] VITALS: BP_SYST 128
[2022-04-20 06:48] LABS: BASOPHILS # (AUTO) 0.1 K/uL (0.0-0.2); BASOPHILS % (AUTO) 1.1 % (0.0-2.0); EOSINOPHILS # (AUTO) 0.5 K/uL (0.0-0.4); HEMATOCRIT 28.6 % (36-48); HEMOGLOBIN 9.4 g/dL (12.0-16.0); LYMPHOCYTES # (AUTO) 2.6 K/uL (1.0-5.5); LYMPHOCYTES % (AUTO) 19.9 % (20.5-51.5); MEAN CORPUSCULAR HEMOGLOBIN 29 pg (27-31); MEAN CORPUSCULAR HGB CONC 33 % (32-36); MEAN CORPUSCULAR VOLUME 89 fL (79.0-98.0); MONOCYTES # (AUTO) 0.8 K/uL (0.0-1.0); MONOCYTES % (AUTO) 5.8 % (1.7-9.3); NEUTROPHILS % (AUTO) 69.2 % (40.0-70.0); PLATELET COUNT (AUTO) 464 K/uL (130-430); RED BLOOD CELL COUNT(AUTO) 3.23 MIL/uL (4.2-6.2); RED CELL DISTRIBUTION WIDTH 17.3 % (9.0-15.0); WHITE BLOOD COUNT (AUTO) 13.1 K/uL (4.8-10.8)
[2022-04-20] MEDS: NORMAL SALINE 5 ML DISP.SYRIN IVF SCH ×3 (06:57→22:00)
[2022-04-20] MEDS: INSULIN REGULAR, HUMAN 100 UNITS/ML, 3 ML VIAL (humuLIN R) SUBCUT PRN ×3 (07:02→21:42)
[2022-04-20 07:41] LABS: ALBUMIN 2.7 g/dL (3.4-4.8); C-REACTIVE PROTEIN QUANT 2.2 mg/dL (0-0.5); CREATININE 5.32 mg/dL (0.55-1.30); PHOSPHORUS 5.3 mg/dL (2.7-4.5); TOTAL BILIRUBIN 0.2 mg/dL (0.0-1.0)
[2022-04-20 08:00] VITALS: BP_SYST 129
[2022-04-20 08:18] LABS: ERYTHROCYTE SEDIMENTATION RATE 106 MM/HR (0-20)
[2022-04-20] MEDS: INSULIN GLARGINE 100 UNITS/ML, 10 ML VIAL SUBCUT SCH (08:54)
[2022-04-20] MEDS: CARVEDILOL 6.25 MG TABLET (COREG) GT SCH (08:55)
[2022-04-20] MEDS: amLODIPine BESYLATE 10 MG TABLET GT SCH (08:56)
[2022-04-20] MEDS: FOLIC ACID 1 MG TABLET PO SCH (08:59)
[2022-04-20] MEDS: FLUCONAZOLE 200 mg/ NS 100 ML IV SCH (11:57)
[2022-04-20 12:44] VITALS: BP_SYST 109
[2022-04-20] MEDS: EPOETIN ALFA-EPBX 3,000 UNITS/ML VIAL SUBCUT SCH (16:52)
[2022-04-20 17:29] VITALS: BP_SYST 141
[2022-04-20] MEDS: ACETAMINOPHEN 650 MG/20.3 ML UDC GT PRN (18:57)
[2022-04-20 20:00] VITALS: BP_SYST 118
[2022-04-20] MEDS: DONEPEZIL HCL 5 MG TABLET (ARICEPT) GT SCH (20:50)
[2022-04-20] MEDS: MIRTAZAPINE 15 MG TABLET GT SCH (20:51)
[2022-04-21] MEDS: ACETAMINOPHEN 650 MG/20.3 ML UDC GT PRN (04:41)
[2022-04-21 07:50] LABS: C-REACTIVE PROTEIN QUANT 2.6 mg/dL (0-0.5); CALCIUM 9.9 mg/dL (8.4-11.0); CREATININE 3.65 mg/dL (0.55-1.30); PHOSPHORUS 3.6 mg/dL (2.7-4.5)
[2022-04-21 08:04] LABS: BASOPHILS % (AUTO) 0.3 % (0.0-2.0); EOSINOPHILS # (AUTO) 0.3 K/uL (0.0-0.4); EOSINOPHILS % (AUTO) 2.5 % (0.0-4.0); HEMATOCRIT 27.9 % (36-48); HEMOGLOBIN 9.2 g/dL (12.0-16.0); LYMPHOCYTES # (AUTO) 2.1 K/uL (1.0-5.5); LYMPHOCYTES % (AUTO) 18.6 % (20.5-51.5); MEAN CORPUSCULAR HEMOGLOBIN 29 pg (27-31); MEAN CORPUSCULAR HGB CONC 33 % (32-36); MEAN CORPUSCULAR VOLUME 90 fL (79.0-98.0); MONOCYTES # (AUTO) 0.9 K/uL (0.0-1.0); MONOCYTES % (AUTO) 7.5 % (1.7-9.3); NEUTROPHILS # (AUTO) 8.2 K/uL (1.8-7.7); NEUTROPHILS % (AUTO) 71.1 % (40.0-70.0); PLATELET COUNT (AUTO) 424 K/uL (130-430); RED BLOOD CELL COUNT(AUTO) 3.11 MIL/uL (4.2-6.2); RED CELL DISTRIBUTION WIDTH 17.6 % (9.0-15.0); WHITE BLOOD COUNT (AUTO) 11.6 K/uL (4.8-10.8)
[2022-04-21] MEDS: FOLIC ACID 1 MG TABLET PO SCH (09:11)
[2022-04-21] MEDS: amLODIPine BESYLATE 10 MG TABLET GT SCH (09:11)
[2022-04-21] MEDS: CARVEDILOL 6.25 MG TABLET (COREG) GT SCH (09:11)
[2022-04-21] MEDS: INSULIN GLARGINE 100 UNITS/ML, 10 ML VIAL SUBCUT SCH (09:13)
[2022-04-21] MEDS: INSULIN REGULAR, HUMAN 100 UNITS/ML, 3 ML VIAL (humuLIN R) SUBCUT PRN ×3 (09:14→20:34)
[2022-04-21] MEDS: FLUCONAZOLE 200 mg/ NS 100 ML IV SCH (11:00)
[2022-04-21] MEDS: traMADol HCL HCL 50 MG TABLET (ULTRAM) PO SCH ×3 (11:17→17:13)
[2022-04-21] MEDS ORDERED: FOLI-43 GT (11:32)
[2022-04-21] MEDS ORDERED: FLUCONAZOLE 200 MG TABLET (DIFLUCAN) GT ONE (11:45)
[2022-04-21 12:00] VITALS: BP_SYST 112
[2022-04-21 13:54] LABS: ERYTHROCYTE SEDIMENTATION RATE 108 MM/HR (0-20)
[2022-04-21] MEDS: NORMAL SALINE 5 ML DISP.SYRIN IVF SCH ×2 (14:00→20:33)
[2022-04-21 16:18] VITALS: BP_SYST 110
[2022-04-21] MEDS: MIRTAZAPINE 15 MG TABLET GT SCH (20:31)
[2022-04-21] MEDS: DONEPEZIL HCL 5 MG TABLET (ARICEPT) GT SCH (20:31)
[2022-04-21 21:00] VITALS: BP_SYST 119
[2022-04-22] MEDS: traMADol HCL HCL 50 MG TABLET (ULTRAM) PO SCH ×4 (01:00→17:33)
[2022-04-22 01:12] VITALS: BP_SYST 115
[2022-04-22] MEDS: NORMAL SALINE 5 ML DISP.SYRIN IVF SCH ×3 (06:00→21:53)
[2022-04-22 08:00] VITALS: BP_SYST 90
[2022-04-22 08:08] LABS: BASOPHILS # (AUTO) 0.1 K/uL (0.0-0.2); BASOPHILS % (AUTO) 0.7 % (0.0-2.0); EOSINOPHILS # (AUTO) 0.6 K/uL (0.0-0.4); EOSINOPHILS % (AUTO) 4.1 % (0.0-4.0); HEMATOCRIT 27.3 % (36-48); HEMOGLOBIN 8.9 g/dL (12.0-16.0); LYMPHOCYTES # (AUTO) 2.5 K/uL (1.0-5.5); LYMPHOCYTES % (AUTO) 18.1 % (20.5-51.5); MEAN CORPUSCULAR HEMOGLOBIN 29 pg (27-31); MEAN CORPUSCULAR HGB CONC 33 % (32-36); MEAN CORPUSCULAR VOLUME 90 fL (79.0-98.0); MONOCYTES # (AUTO) 1.1 K/uL (0.0-1.0); MONOCYTES % (AUTO) 7.6 % (1.7-9.3); NEUTROPHILS # (AUTO) 9.7 K/uL (1.8-7.7); NEUTROPHILS % (AUTO) 69.5 % (40.0-70.0); PLATELET COUNT (AUTO) 433 K/uL (130-430); RED BLOOD CELL COUNT(AUTO) 3.03 MIL/uL (4.2-6.2); RED CELL DISTRIBUTION WIDTH 17.7 % (9.0-15.0); WHITE BLOOD COUNT (AUTO) 13.9 K/uL (4.8-10.8)
[2022-04-22 08:41] LABS: ALBUMIN 2.5 g/dL (3.4-4.8); CREATININE 4.84 mg/dL (0.55-1.30); PHOSPHORUS 5.6 mg/dL (2.7-4.5); TOTAL BILIRUBIN 0.1 mg/dL (0.0-1.0)
[2022-04-22] MEDS: amLODIPine BESYLATE 10 MG TABLET GT SCH (09:00)
[2022-04-22] MEDS: CARVEDILOL 6.25 MG TABLET (COREG) GT SCH (09:00)
[2022-04-22] MEDS: FOLIC ACID 1 MG TABLET PO SCH (09:44)
[2022-04-22] MEDS: INSULIN GLARGINE 100 UNITS/ML, 10 ML VIAL SUBCUT SCH (09:46)
[2022-04-22] MEDS: FLUCONAZOLE 200 MG TABLET (DIFLUCAN) GT SCH (09:59)
[2022-04-22] MEDS ORDERED: FLUC200T GT (11:20)
[2022-04-22] MEDS ORDERED: METR-343 PO (11:20)
[2022-04-22 11:51] VITALS: BP_SYST 117
[2022-04-22 16:34] VITALS: BP_SYST 104
[2022-04-22] MEDS: metroNIDAZOLE 250 MG TABLET PO SCH ×2 (17:27→21:53)
[2022-04-22] MEDS: EPOETIN ALFA-EPBX 3,000 UNITS/ML VIAL SUBCUT SCH (17:28)
[2022-04-22] MEDS: INSULIN REGULAR, HUMAN 100 UNITS/ML, 3 ML VIAL (humuLIN R) SUBCUT PRN ×2 (17:32→20:45)
[2022-04-22 20:00] VITALS: BP_SYST 118
[2022-04-22] MEDS: DONEPEZIL HCL 5 MG TABLET (ARICEPT) GT SCH (20:38)
[2022-04-22] MEDS: MIRTAZAPINE 15 MG TABLET GT SCH (20:38)
[2022-04-23 00:13] VITALS: BP_SYST 107
[2022-04-23] MEDS: NORMAL SALINE 5 ML DISP.SYRIN IVF SCH (06:00)
[2022-04-23] MEDS: traMADol HCL HCL 50 MG TABLET (ULTRAM) PO SCH ×3 (06:00→12:29)
[2022-04-23] MEDS: metroNIDAZOLE 250 MG TABLET PO SCH (06:14)
[2022-04-23] MEDS: INSULIN REGULAR, HUMAN 100 UNITS/ML, 3 ML VIAL (humuLIN R) SUBCUT PRN ×2 (06:24→12:45)
[2022-04-23 07:02] LABS: C-REACTIVE PROTEIN QUANT 6.3 mg/dL (0-0.5); CALCIUM 10.2 mg/dL (8.4-11.0); CREATININE 3.72 mg/dL (0.55-1.30); PHOSPHORUS 4.1 mg/dL (2.7-4.5)
[2022-04-23 07:23] LABS: BASOPHILS # (AUTO) 0.1 K/uL (0.0-0.2); BASOPHILS % (AUTO) 0.4 % (0.0-2.0); EOSINOPHILS # (AUTO) 0.3 K/uL (0.0-0.4); EOSINOPHILS % (AUTO) 2.4 % (0.0-4.0); HEMATOCRIT 28.1 % (36-48); HEMOGLOBIN 9.2 g/dL (12.0-16.0); LYMPHOCYTES # (AUTO) 2.4 K/uL (1.0-5.5); LYMPHOCYTES % (AUTO) 16.7 % (20.5-51.5); MEAN CORPUSCULAR HEMOGLOBIN 30 pg (27-31); MEAN CORPUSCULAR HGB CONC 33 % (32-36); MEAN CORPUSCULAR VOLUME 90 fL (79.0-98.0); MONOCYTES % (AUTO) 6.7 % (1.7-9.3); NEUTROPHILS # (AUTO) 10.6 K/uL (1.8-7.7); NEUTROPHILS % (AUTO) 73.8 % (40.0-70.0); PLATELET COUNT (AUTO) 447 K/uL (130-430); RED BLOOD CELL COUNT(AUTO) 3.11 MIL/uL (4.2-6.2); RED CELL DISTRIBUTION WIDTH 17.5 % (9.0-15.0); WHITE BLOOD COUNT (AUTO) 14.4 K/uL (4.8-10.8)
[2022-04-23 08:00] VITALS: BP_SYST 111
[2022-04-23] MEDS: FOLIC ACID 1 MG TABLET PO SCH (09:47)
[2022-04-23] MEDS: CARVEDILOL 6.25 MG TABLET (COREG) GT SCH (09:48)
[2022-04-23] MEDS: amLODIPine BESYLATE 10 MG TABLET GT SCH (09:48)
[2022-04-23] MEDS: FLUCONAZOLE 200 MG TABLET (DIFLUCAN) GT SCH (09:49)
[2022-04-23] MEDS: INSULIN GLARGINE 100 UNITS/ML, 10 ML VIAL SUBCUT SCH (09:52)
[2022-04-23 11:18] VITALS: BP_SYST 121
[2022-04-23 12:09] LABS: ERYTHROCYTE SEDIMENTATION RATE 106 MM/HR (0-20)
[2022-04-23 13:08] VITALS: BP_SYST 121
== END 2022-04-23 15:48 | DRG 871 ==
LOC: SED 14:33 → STU 17:41 → OBSVTOIN 03-09 15:31 → SMU 04-10 11:40
PROVIDERS: ADMIT Preventive Medicine Preventive Medicine/Occupational Environmental Medicine; ATTEND Preventive Medicine Preventive Medicine/Occupational Environmental Medicine
PROC: 3E0A3GC Introduction of Other Therapeutic Substance into Bone Marrow, Percutaneous Approach (ICD-10-PCS; principal; 2022-03-09)
PROC: 4A00X4Z Measurement of Central Nervous Electrical Activity, External Approach (ICD-10-PCS; 2022-03-09)
PROC: 5A1D70Z Performance of Urinary Filtration, Intermittent, Less than 6 Hours Per Day (ICD-10-PCS; 2022-03-12)
PROC: 5A1D70Z Performance of Urinary Filtration, Intermittent, Less than 6 Hours Per Day (ICD-10-PCS; 2022-03-13)
PROC: 5A1D70Z Performance of Urinary Filtration, Intermittent, Less than 6 Hours Per Day (ICD-10-PCS; 2022-03-15)
PROC: 5A1D70Z Performance of Urinary Filtration, Intermittent, Less than 6 Hours Per Day (ICD-10-PCS; 2022-03-17)
PROC: 5A1D70Z Performance of Urinary Filtration, Intermittent, Less than 6 Hours Per Day (ICD-10-PCS; 2022-03-18)
PROC: 5A1D70Z Performance of Urinary Filtration, Intermittent, Less than 6 Hours Per Day (ICD-10-PCS; 2022-03-20)
PROC: 5A1D70Z Performance of Urinary Filtration, Intermittent, Less than 6 Hours Per Day (ICD-10-PCS; 2022-03-22)
PROC: 5A1D70Z Performance of Urinary Filtration, Intermittent, Less than 6 Hours Per Day (ICD-10-PCS; 2022-03-24)
PROC: 5A1D70Z Performance of Urinary Filtration, Intermittent, Less than 6 Hours Per Day (ICD-10-PCS; 2022-03-25)
PROC: 5A1D70Z Performance of Urinary Filtration, Intermittent, Less than 6 Hours Per Day (ICD-10-PCS; 2022-03-27)
PROC: 0JPT3XZ Removal of Tunneled Vascular Access Device from Trunk Subcutaneous Tissue and Fascia, Percutaneous Approach (ICD-10-PCS; 2022-03-29)
PROC: 02PYX3Z Removal of Infusion Device from Great Vessel, External Approach (ICD-10-PCS; 2022-03-29)
PROC: 5A1D70Z Performance of Urinary Filtration, Intermittent, Less than 6 Hours Per Day (ICD-10-PCS; 2022-03-29)
PROC: 5A1D70Z Performance of Urinary Filtration, Intermittent, Less than 6 Hours Per Day (ICD-10-PCS; 2022-03-31)
PROC: 5A1D70Z Performance of Urinary Filtration, Intermittent, Less than 6 Hours Per Day (ICD-10-PCS; 2022-04-01)
PROC: 5A1D70Z Performance of Urinary Filtration, Intermittent, Less than 6 Hours Per Day (ICD-10-PCS; 2022-04-04)
PROC: 30233N1 Transfusion of Nonautologous Red Blood Cells into Peripheral Vein, Percutaneous Approach (ICD-10-PCS; 2022-04-06)
PROC: 5A1D70Z Performance of Urinary Filtration, Intermittent, Less than 6 Hours Per Day (ICD-10-PCS; 2022-04-06)
PROC: 5A1D70Z Performance of Urinary Filtration, Intermittent, Less than 6 Hours Per Day (ICD-10-PCS; 2022-04-08)
PROC: 5A1D70Z Performance of Urinary Filtration, Intermittent, Less than 6 Hours Per Day (ICD-10-PCS; 2022-04-10)
PROC: 5A1D70Z Performance of Urinary Filtration, Intermittent, Less than 6 Hours Per Day (ICD-10-PCS; 2022-04-17)
PROC: 5A1D70Z Performance of Urinary Filtration, Intermittent, Less than 6 Hours Per Day (ICD-10-PCS; 2022-04-20)
PROC: 5A1D70Z Performance of Urinary Filtration, Intermittent, Less than 6 Hours Per Day (ICD-10-PCS; 2022-04-21)
PROC: 5A1D70Z Performance of Urinary Filtration, Intermittent, Less than 6 Hours Per Day (ICD-10-PCS; 2022-04-22)
PROC: 02H633Z Insertion of Infusion Device into Right Atrium, Percutaneous Approach (ICD-10-PCS; 2022-04-22)
DX: A41.59 Other Gram-negative sepsis (principal); G93.41 Metabolic encephalopathy; J69.0 Pneumonitis due to inhalation of food and vomit; N18.6 End stage renal disease; T82.41XA Breakdown (mechanical) of vascular dialysis catheter, initial encounter; N39.0 Urinary tract infection, site not specified; I12.0 Hypertensive chronic kidney disease with stage 5 chronic kidney disease or end stage renal disease; E87.1 Hypo-osmolality and hyponatremia; F03.918 Unspecified dementia, unspecified severity, with other behavioral disturbance; I69.351 Hemiplegia and hemiparesis following cerebral infarction affecting right dominant side; T86.12 Kidney transplant failure; Z16.12 Extended spectrum beta lactamase (ESBL) resistance; I25.10 Atherosclerotic heart disease of native coronary artery without angina pectoris; G40.909 Epilepsy, unspecified, not intractable, without status epilepticus; E78.5 Hyperlipidemia, unspecified; D63.8 Anemia in other chronic diseases classified elsewhere; D75.839 Thrombocytosis, unspecified; E87.6 Hypokalemia; E11.65 Type 2 diabetes mellitus with hyperglycemia; E11.21 Type 2 diabetes mellitus with diabetic nephropathy; G47.00 Insomnia, unspecified; E88.09 Other disorders of plasma-protein metabolism, not elsewhere classified; K59.00 Constipation, unspecified; E87.5 Hyperkalemia; D63.1 Anemia in chronic kidney disease; E83.41 Hypermagnesemia; E83.39 Other disorders of phosphorus metabolism; J45.909 Unspecified asthma, uncomplicated; Y71.2 Prosthetic and other implants, materials and accessory cardiovascular devices associated with adverse incidents; Y83.0 Surgical operation with transplant of whole organ as the cause of abnormal reaction of the patient, or of later complication, without mention of misadventure at the time of the procedure; E11.22 Type 2 diabetes mellitus with diabetic chronic kidney disease; Z20.822 Contact with and (suspected) exposure to COVID-19; Y92.89 Other specified places as the place of occurrence of the external cause; Z79.01 Long term (current) use of anticoagulants; Z79.02 Long term (current) use of antithrombotics/antiplatelets; Z79.4 Long term (current) use of insulin; Z79.60 Long term (current) use of unspecified immunomodulators and immunosuppressants; Z79.899 Other long term (current) drug therapy; Z86.19 Personal history of other infectious and parasitic diseases; Z87.01 Personal history of pneumonia (recurrent); Z87.440 Personal history of urinary (tract) infections; Z99.2 Dependence on renal dialysis; Z93.1 Gastrostomy status
CPT/HCPCS: 36415; 70450-TC; 71045; 76376; 80048; 80053; 80307; 81000; 82009; 82140; 82272; 82306; 82607; 82728; 82746; 82947; 82962; 83540; 83550; 83605; 83735; 83880; 84100; 84157; 84439; 84443; 84484; 85007; 85025; 85027; 85044; 85048; 85610-TC; 85651-TC; 85730-TC; 86140; 86694; 86695; 86696; 86886; 86900; 86901; 86920; 87040; 87070-TC; 87075-TC; 87081; 87086; 87205-TC; 87230-TC; 87497; 90935; 90937; 92610-GN; 93005; 93971; 95816; 96372; 96374; 96375; 97161-GP; 97163-GP; 99291; C1751; G0378; G0480; G0481; G0482; J0133; J0692; J0885; J1335; J1450; J1815; J1953; J2001; J2060; J2185; J2250; J2704; J3010; J3370; J3430; J3480; J3490; J7030; J7040; J7042; J7050; J7060; J7120; J7507; J7512; J7517; P9021; Q5106